=== PATIENT | female | born 1965 | race Caucasian/White ===

== ENCOUNTER 2017-09-20 12:07 | Emergency (ER) | payer BC ==
--- NOTE | 2017-09-20 12:25 | EDM.PDOC ---
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 Stated Complaint: VAG BLEEDING Time Seen by Provider: 09/20/17 12:21 - History of Present Illness INITIAL COMMENTS - FREE TEXT/NARRATIVE: HISTORY AND PHYSICAL: History of present illness: Patient is a 51-year-old female presents with concern of vaginal bleeding that' s been off and on for 4 years been heavier recently she has not sought medical care due to lack of insurance but is going to be in contact with EXECUTIVE RECRUITER tomorrow for follow-up there's been no dizziness chest pain service breath or other concern Review of systems: As per history of present illness and below otherwise all systems reviewed and negative. Past medical history: As per history of present illness and as reviewed below otherwise noncontributory. Surgical history: As per history of present illness and as reviewed below otherwise noncontributory. Social history: No reported history of drug or alcohol abuse. Family history: As per history of present illness and as reviewed below otherwise noncontributory. Physical exam: HEENT: Atraumatic, normocephalic, pupils reactive, negative for conjunctival pallor or scleral icterus, mucous membranes moist, throat clear, neck supple, nontender, trachea midline. Lungs: Clear to auscultation, breath sounds equal bilaterally, chest nontender. Heart: S1S2, regular, negative for clicks, rubs, or JVD. Abdomen: Soft, nondistended, nontender. Negative for masses or hepatosplenomegaly. Negative for costovertebral tenderness. Pelvis: Stable nontender. Genitourinary: Deferred. Rectal: Deferred. Extremities: Atraumatic, negative for cords or calf pain. Neurovascular unremarkable. Neuro: Awake, alert, oriented. Cranial nerves II through XII unremarkable. Cerebellum unremarkable. Motor and sensory unremarkable throughout. Exam nonfocal. Diagnostics: CBC PT/INR hCG Therapeutics: None Impression: #1 dysfunctional uterine bleeding Definitive disposition and diagnosis as appropriate pending reevaluation and review of above. pelvic cramping Pain Score (Numeric/FACES): 4 - Related Data Allergies Allergy/AdvReac Type Severity Reaction Status Date / Time No Known Allergies Allergy Verified 09/20/17 12:23 Home Meds: Home Meds . [No Known Home Meds] 09/20/17 [History] ED ROS GENERAL - Review of Systems Review Of Systems: ROS reveals no pertinent complaints other than HPI. ED EXAM, GENERAL - Physical Exam Exam: See Below (See dictation) Course - Vital Signs Last Recorded V/S: Last Vital Signs Temp 37.1 C 09/20/17 13:30 Pulse 89 09/20/17 13:30 Resp 20 09/20/17 13:30 BP 181/89 H 09/20/17 13:30 Pulse Ox 99 09/20/17 13:30 - Orders/Labs/Meds Labs: Laboratory Tests 09/20/17 09/20/17 09/20/17 Range/Units 12:36 12:36 12:36 WBC 5.47 (4.0-11.0) K/uL RBC 4.59 (4.30-5.90) M/uL Hgb 12.3 (12.0-16.0) g/dL Hct 38.9 (36.0-46.0) % MCV 84.7 (80.0-98.0) fL MCH 26.8 L (27.0-32.0) pg MCHC 31.6 (31.0-37.0) g/dL RDW Std Deviation 47.7 (28.0-62.0) fl RDW Coeff of Sandor 16 H (11.0-15.0) % Plt Count 248 (150-400) K/uL MPV 9.90 (7.40-12.00) fL Neut % (Auto) 64.9 (48.0-80.0) % Lymph % (Auto) 26.9 (16.0-40.0) % [place] % (Auto) 7.3 (0.0-15.0) % Eos % (Auto) 0.7 (0.0-7.0) % Baso % (Auto) 0.2 (0.0-1.5) % Neut # (Auto) 3.6 (1.4-5.7) K/uL Lymph # (Auto) 1.5 (0.6-2.4) K/uL [place] # (Auto) 0.4 (0.0-0.8) K/uL Eos # (Auto) 0.0 (0.0-0.7) K/uL Baso # (Auto) 0.0 (0.0-0.1) K/uL Nucleated RBC % 0.0 /100WBC Nucleated RBCs # 0 K/uL INR 1.04 HCG, Qual NEGATIVE (NEG) Departure - Departure Time of Disposition: 19:16 Disposition: Home, Self-Care 01 Condition: Good Clinical Impression: Dysfunctional uterine bleeding - Discharge Information Instructions: Abnormal Uterine Bleeding Referrals: Chava Roque MD [Physician] - PCP,None [Primary Care Provider] - Forms: ED Department Discharge
== END 2017-09-20 13:30 | disposition home or self-care (01) ==
LOC: MW.ED 12:07
DX: N93.8 Other specified abnormal uterine and vaginal bleeding (principal)
CPT/HCPCS: 36415; 84703; 85025; 85610; 99283

== ENCOUNTER 2020-09-11 17:21 | Emergency (ER) | payer BC ==
--- NOTE | 2020-09-11 18:03 | EDM.PDOC ---
ED HPI GENERAL MEDICAL PROBLEM - General Chief Complaint: Respiratory Problem Stated Complaint: SOB Time Seen by Provider: 09/11/20 17:25 Source of Information: Reports: Patient History Limitations: Reports: No Limitations - History of Present Illness INITIAL COMMENTS - FREE TEXT/NARRATIVE: Reporting "bronchitis" the patient states for the last for 5 days she has had a cough which makes her somewhat short of breath. The patient states she had the same symptoms 1 year ago and was diagnosed with a sinus infection and bronchitis. On this occasion she has no headache sinus fullness tenderness or drainage no postnasal drip. She does not smoke. She has a history of hypertension and she has not taken her medications for the last 3 days because of the cough. Not been tested for Covid and she really does not want to be but changed her mind and stated she would like a Covid test so that she can get back and see her primary care provider who will not see her until she has a Covid test. She has had no diarrhea, sore throat, loss of taste or smell, fever, body aches or headaches. Besides hypertension she has a history of morbid obesity. 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 - Infectious Disease History Infectious Disease History: Reports: None - Past Surgical History Female Surgical History: Reports: Section Musculoskeletal Surgical History: Reports: Other (See Below) Other Musculoskeletal Surgeries/Procedures:: knee and ankle sx Social & Family History - Family History Family Medical History: No Pertinent Family History - Tobacco Use Tobacco Use Status *Q: Never Tobacco User - Caffeine Use Caffeine Use: Reports: Tea - Recreational Drug Use Recreational Drug Use: No ED ROS GENERAL - Review of Systems Review Of Systems: Comprehensive ROS is negative, except as noted in HPI. ED EXAM, GENERAL - Physical Exam Exam: See Below Exam Limited By: No Limitations General Appearance: Alert, No Apparent Distress Ears: Normal External Exam, Normal TMs Nose: Normal Inspection Throat/Mouth: Normal Inspection, Normal Lips, Normal Oropharynx Head: Atraumatic, Normocephalic. No: Facial Tenderness, Sinus Tenderness Neck: Normal Inspection Respiratory/Chest: No Respiratory Distress, Lungs Clear, Normal Breath Sounds Cardiovascular: Regular Rate, Rhythm, No Murmur GI/Abdominal: Soft, Non-Tender, No Distention Back Exam: Normal Inspection Extremities: Normal Inspection. No: Pedal Edema Neurological: Alert, Oriented, Normal Cognition Psychiatric: Normal Affect, Normal Mood Skin Exam: Warm, Dry, Intact, Normal Color, No Rash Lymphatic: No Adenopathy Course - Vital Signs Last Recorded V/S: Last Vital Signs Temp 37.5 C 09/11/20 17:29 Pulse 97 09/11/20 17:29 Resp 22 H 09/11/20 17:29 BP 105/84 09/11/20 17:29 Pulse Ox 93 L 09/11/20 17:29 Departure - Departure Time of Disposition: 18:20 Disposition: Home, Self-Care 01 Condition: Good Clinical Impression: Bronchitis - Discharge Information Prescriptions: Codeine Phosphate/Guaifenesin [Guaifen-Codeine 100-10 mg/5 ml] 10 ml PO Q6HR PRN #240 liquid PRN Reason: Cough predniSONE [Prednisone] 2 tab PO DAILY #10 tablet Referrals: Alaina Murry DO [Primary Care Provider] - Additional Instructions: The following information is given to patients seen in the emergency department who are being discharged to home. This information is to outline your options for follow-up care. We provide all patients seen in our emergency department with a follow-up referral. The need for follow-up, as well as the timing and circumstances, are variable depending upon the specifics of your emergency department visit. If you don't have a primary care physician on staff, we will provide you with a referral. We always advise you to contact your personal physician following an emergency department visit to inform them of the circumstance of the visit and for follow-up with them and/or the need for any referrals to a consulting specialist. The emergency department will also refer you to a specialist when appropriate. This referral assures that you have the opportunity for follow-up care with a specialist. All of these measure are taken in an effort to provide you with optimal care, which includes your follow-up. Under all circumstances we always encourage you to contact your private physician who remains a resource for coordinating your care. When calling for follow-up care, please make the office aware that this follow-up is from your recent emergency room visit. If for any reason you are refused follow-up, please contact the [facility] Emergency Department at and asked to speak to the emergency department charge nurse. 1. Low up with your primary care provider as you have indicated. 2. Prednisone once daily starting today 3. Syrup every 4-6 hours as needed. No driving or operating machinery 4. Drink plenty of fluids Sepsis Event Note (ED) - Evaluation Sepsis Screening Result: No Definite Risk - Focused Exam Vital Signs: Vital Signs Temp Pulse Resp BP Pulse Ox 09/11/20 17:29 37.5 C 97 22 H 105/84 93 L
[2020-09-11 19:04] LABS: CORONAVIRUS COVID-19 NAA POSITIVE (NEGATIVE); INFLUENZA A NAA NEGATIVE (NEGATIVE); INFLUENZA B NAA NEGATIVE (NEGATIVE)
== END 2020-09-11 18:18 | disposition home or self-care (01) ==
LOC: MW.ED 17:21
DX: J40 Bronchitis, not specified as acute or chronic (principal); I10 Essential (primary) hypertension; Z79.899 Other long term (current) drug therapy
CPT/HCPCS: 0240U; 99284; 99282

== ENCOUNTER 2020-09-15 18:28 | Inpatient (IN) | payer BC ==
--- NOTE | 2020-09-15 18:42 | EDM.PDOC ---
ED HPI GENERAL MEDICAL PROBLEM - General Chief Complaint: General Stated Complaint: SICK Time Seen by Provider: 09/15/20 18:33 Source of Information: Reports: Patient History Limitations: Reports: No Limitations - History of Present Illness INITIAL COMMENTS - FREE TEXT/NARRATIVE: HISTORY AND PHYSICAL: History of present illness: Patient is a 54-year-old female who presents to the emergency room with complaints of shortness of breath frequency and dysuria. On 09/11/2020, patient was seen in the emergency room for shortness of breath. She was diagnosed with bronchitis and COVID-19. She was given a prescription for prednisone and prescription cough syrup. She states the following day she had increased urinary frequency and dysuria, she called her primary care provider who called her in a prescription for oral antibiotics (she is unsure of name/dose). She has taken this medication over the past 2 days and feels no improvement. She believes her shortness of breath is becoming worse and is here for evaluation. Patient denies any fever, chills, headache, change in vision, syncope or near syncope. Denies any chest pain, back pain or cough. Denies any abdominal pain, nausea, vomiting, diarrhea, or constipation. Has not noted any blood in urine or stool. She has decreased appetite and states she feels dehydrated as she has not been drinking well. Review of systems: As per history of present illness and below otherwise all systems reviewed and negative. Past medical history: As per history of present illness and as reviewed below otherwise noncontributory. Surgical history: As per history of present illness and as reviewed below otherwise noncontributory. Social history: See social history for further information Family history: As per history of present illness and as reviewed below otherwise noncontributory. Physical exam: General: Well developed and well nourished 54 year old female. Alert and orientated x 3. Nontoxic in appearance and in no acute distress. Vital signs are stable and have been reviewed by me. Nursing notes were reviewed. HEENT: Atraumatic, normocephalic, pupils equal and reactive bilaterally, negative for conjunctival pallor or scleral icterus, mucous membranes moist, neck supple, nontender, trachea midline. No drooling or trismus noted. No meningeal signs. No hot potato voice noted. Lungs: Diminished throughout to auscultation bilaterally. No wheezes, rales, or rhonchi. Chest nontender. Mildly labored work of breathing. Heart: S1S2, regular rate and rhythm without overt murmur, gallops, or rubs. No JVD. No peripheral edema Abdomen: Soft, obese, nontender. Normoactive bowel sounds. Negative for masses or costovertebral tenderness. Skin: Intact, warm, dry. No lesions or rashes noted. Hematologic: No petechiae or purpra. Mucosa appropriate color and normal nail bed color and refill. Extremities: Atraumatic, moves all extremities per self without difficulty or deficits, negative for cords or calf pain. Neurovascular unremarkable. Neuro: Awake, alert, oriented. Cranial nerves II through XII unremarkable. Cerebellum unremarkable. Motor and sensory unremarkable throughout. Exam nonfocal. Psychiatric: Mood and affect are appropriate. Normal thought process. Answering questions appropriately. Notes: *This patient was seen and evaluated during the 2019 SARS-CoV-2 novel coronavirus pandemic period. Community viral transmission is ongoing at time of this encounter and the emergency department is operating under pandemic response procedures. Patient's oxygen saturation was 82% on RA, 90% on 5L per N/C. Patient appears unwell, risk for sepsis (will do sepsis labs) she is agreeable to lab work and likely admission. Will continue to monitor. Chest x-ray shows rounded areas of consolidation right mid and lower lung. This may represent pneumonia, however an underlying process including neoplasm not excluded. Heart size and pulmonary vascularity appear within normal. Initially was planning to do a CTA of the chest to rule out PE and further evaluate the abnormal chest x-ray reading. Patient's GFR is 27, will talk to the hospitalist about treating prophylactically versus VQ scan. We discussed risks versus benefits of Remdesivir, patient is agreeable to IV therapy. Patient's CBC is within normal limits. Her BUN and creatinine are slightly elevated at 27/1.9, we do not have any prior comparison except for 2018 in which she was in normal limits. Negative troponin. BNP is 24. Patient's oxygen had to be bumped up to 8 L per nasal cannula to sat at 89 to 90% on room air. We did switch her over to high flow oxygen at 95% and her saturation sitting right at 90. The RT reports that when she moved around she did decrease down to 88%. She did tolerate this for 15 to 20 minutes but does not get above 89% at this time. We will switch her to BiPAP and continue to monitor closely. Patient states she has a history of claustrophobia and feels anxious placing the BiPAP on. 1 mg of Ativan was given for comfort purposes. Nursing staff is at the bedside one-on-one and we have continue to monitor closely. Dr Nickerson, hospitalist on-call was made aware of this patient. He is aware that the D-dimer machine is currently not running and these results will be delayed. Krishan is also aware that we were unable to do a CT of the chest to rule out PE due to her kidney function. Patient will be placed in ICU for further care and management. Diagnostics: CBC, CMP, Lactate, BC x 2, D.Dimer, Troponin, EKG, CXR Therapeutics: Oxygen therapy, Remdesivir, Decadron, Ativan, Tylenol Impression: Respiratory failure with hypoxia COVID pneumonia Renal insufficiency Plan: ICU admission for further care and management, inpatient. Definitive disposition and diagnosis as appropriate pending reevaluation and review of above. 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 ED EXAM, GENERAL - Physical Exam Exam: See Below (See dictation) Course - Vital Signs Last Recorded V/S: Last Vital Signs Temp 100.7 F H 09/15/20 18:39 Pulse 101 H 09/15/20 18:39 Resp 32 H 09/15/20 18:39 BP 186/71 H 09/15/20 18:39 Pulse Ox 90 L 09/15/20 18:50 - Orders/Labs/Meds Orders: Active Orders 24 hr Category Date Time Status Admission Status [Patient Status] [ADT] Stat ADT 09/15/20 20:22 Active Cardiac Monitoring [RC] . DIRECTED Care 09/15/20 20:22 Active EKG Documentation Completion [RC] STAT Care 09/15/20 18:48 Active Oxygen Therapy [RC] ASDIRECTED Care 09/15/20 18:48 Active PE Chest [Ang Chest] [CT] Stat Exams 09/15/20 19:49 Ordered CULTURE BLOOD [BC] Stat Lab 09/15/20 19:15 Received CULTURE BLOOD [BC] Stat Lab 09/15/20 19:23 Received DD [D-DIMER QUANTITATIVE] [COAG] Stat Lab 09/15/20 19:15 Received UA RFX YA AND CULT IF INDIC [URIN] Stat Lab 09/15/20 18:48 Ordered Sodium Chloride 0.9% [Normal Saline] 1,000 ml Med 09/15/20 20:09 Active IV STAT Blood Culture x2 Reflex Set [OM.PC] Stat Oth 09/15/20 18:48 Ordered Medication Orders Sodium Chloride (Normal Saline) 1,000 mls @ 125 mls/hr IV STAT ONE Stop: 09/16/20 04:08 Last Admin: 09/15/20 20:20 Dose: 125 mls/hr Documented by: [id number] Labs: Laboratory Tests 09/15/20 09/15/20 09/15/20 Range/Units 19:15 19:15 19:15 WBC 8.81 (4.0-11.0) K/uL RBC 4.48 (4.30-5.90) M/uL Hgb 12.5 (12.0-16.0) g/dL Hct 38.4 (36.0-46.0) % MCV 85.7 (80.0-98.0) fL MCH 27.9 (27.0-32.0) pg MCHC 32.6 (31.0-37.0) g/dL RDW Std Deviation 45.0 (28.0-62.0) fl RDW Coeff of Sandor 14 (11.0-15.0) % Plt Count 225 (150-400) K/uL MPV 10.10 (7.40-12.00) fL Neut % (Auto) 88.4 H (48.0-80.0) % Lymph % (Auto) 6.5 L (16.0-40.0) % [place] % (Auto) 5.0 (0.0-15.0) % Eos % (Auto) 0.0 (0.0-7.0) % Baso % (Auto) 0.1 (0.0-1.5) % Neut # (Auto) 7.8 H (1.4-5.7) K/uL Lymph # (Auto) 0.6 (0.6-2.4) K/uL [place] # (Auto) 0.4 (0.0-0.8) K/uL Eos # (Auto) 0.0 (0.0-0.7) K/uL Baso # (Auto) 0.0 (0.0-0.1) K/uL Nucleated RBC % 0.0 /100WBC Nucleated RBCs # 0 K/uL Lactate 1.2 (0.20-2.00) mmol/L Sodium 136 (136-145) mmol/L Potassium 4.0 (3.5-5.1) mmol/L Chloride 102 (98-107) mmol/L Carbon Dioxide 24.1 (21.0-32.0) mmol/L BUN 27 H (7.0-18.0) mg/dL Creatinine 1.9 H (0.6-1.0) mg/dL Est Cr Clr Drug Dosing 33.30 mL/min Estimated GFR (MDRD) 27.7 ml/min Glucose 150 H (74-106) mg/dL Calcium 9.1 (8.5-10.1) mg/dL Total Bilirubin 0.8 (0.2-1.0) mg/dL Direct Bilirubin (0.0-0.5) mg/dL AST 65 H (15-37) IU/L ALT 57 (14-63) IU/L Alkaline Phosphatase 58 (46-116) U/L Troponin I < 0.050 (0.000-0.056) ng/mL B-Natriuretic Peptide (<100) PG/ML Total Protein 7.5 (6.4-8.2) g/dL Albumin 2.8 L (3.4-5.0) g/dL Globulin 4.7 H (2.6-4.0) g/dL Albumin/Globulin Ratio 0.6 L (0.9-1.6) 09/15/20 09/15/20 Range/Units 19:15 19:15 WBC (4.0-11.0) K/uL RBC (4.30-5.90) M/uL Hgb (12.0-16.0) g/dL Hct (36.0-46.0) % MCV (80.0-98.0) fL MCH (27.0-32.0) pg MCHC (31.0-37.0) g/dL RDW Std Deviation (28.0-62.0) fl RDW Coeff of Sandor (11.0-15.0) % Plt Count (150-400) K/uL MPV (7.40-12.00) fL Neut % (Auto) (48.0-80.0) % Lymph % (Auto) (16.0-40.0) % [place] % (Auto) (0.0-15.0) % Eos % (Auto) (0.0-7.0) % Baso % (Auto) (0.0-1.5) % Neut # (Auto) (1.4-5.7) K/uL Lymph # (Auto) (0.6-2.4) K/uL [place] # (Auto) (0.0-0.8) K/uL Eos # (Auto) (0.0-0.7) K/uL Baso # (Auto) (0.0-0.1) K/uL Nucleated RBC % /100WBC Nucleated RBCs # K/uL Lactate (0.20-2.00) mmol/L Sodium (136-145) mmol/L Potassium (3.5-5.1) mmol/L Chloride (98-107) mmol/L Carbon Dioxide (21.0-32.0) mmol/L BUN (7.0-18.0) mg/dL Creatinine (0.6-1.0) mg/dL Est Cr Clr Drug Dosing mL/min Estimated GFR (MDRD) ml/min Glucose (74-106) mg/dL Calcium (8.5-10.1) mg/dL Total Bilirubin (0.2-1.0) mg/dL Direct Bilirubin 0.50 (0.0-0.5) mg/dL AST (15-37) IU/L ALT (14-63) IU/L Alkaline Phosphatase (46-116) U/L Troponin I (0.000-0.056) ng/mL B-Natriuretic Peptide 24 (<100) PG/ML Total Protein (6.4-8.2) g/dL Albumin (3.4-5.0) g/dL Globulin (2.6-4.0) g/dL Albumin/Globulin Ratio (0.9-1.6) Meds: Medications Generic Name Dose Route Start Last Admin Trade Name Freq PRN Reason Stop Dose Admin Sodium Chloride 1,000 mls @ 125 mls/hr 09/15/20 20:09 09/15/20 20:20 Normal Saline IV 09/16/20 04:08 125 mls/hr STAT ONE Administration Discontinued Medications Generic Name Dose Route Start Last Admin Trade Name Freq PRN Reason Stop Dose Admin Acetaminophen 1,000 mg 09/15/20 20:08 09/15/20 20:15 Tylenol Extra Strength PO 09/15/20 20:09 1,000 mg ONETIME ONE Administration Dexamethasone 6 mg 09/15/20 19:30 09/15/20 20:02 Decadron IVPUSH 09/15/20 19:31 6 mg ONETIME ONE Administration Remdesivir 200 mg/ Sodium 250 mls @ 250 mls/hr 09/15/20 19:29 09/15/20 20:03 Chloride IV 09/15/20 19:30 250 mls/hr ONETIME ONE Administration Lorazepam 1 mg 09/15/20 20:17 09/15/20 20:21 Ativan IVPUSH 09/15/20 20:18 1 mg ONETIME ONE Administration Lorazepam Confirm 09/15/20 20:18 09/15/20 20:21 Ativan Administered 09/15/20 20:19 Not Given Dose 2 mg .ROUTE .STK-MED ONE Departure - Departure Time of Disposition: 20:49 Disposition: Admitted As Inpatient 67 Clinical Impression: Pneumonia due to COVID-19 virus, Renal insufficiency Respiratory failure with hypoxia Qualifiers: Chronicity: acute Qualified Code(s): J96.01 - Acute respiratory failure with hypoxia - Discharge Information Critical Care Note - Critical Care Note Total Time (mins): 31 Comments: Critical care time is exclusive of billable procedures and the time to perform these procedures. Critical care time was used to prevent vital system organ failure and deterioration. Critical care time includes bedside management and high-complexity decision making requiring my highest level of mental preparedness and attention. This includes reviewing the patient's chart and prior medical records, ordering and reviewing interpreting laboratory studies and imaging results, interpretation of vital signs and EKG, pulse oximetry, and discussion with the admitting team along with EMS and nursing staff. Patient presented to the emergency room with an oxygen saturation of 82% on room air. We have had to titrate her oxygen to high flow nasal cannula then over to BiPAP due to her hypoxia. Vital signs have been monitored closely. Patient will be admitted to the ICU due to status. Sepsis Event Note (ED) - Focused Exam Vital Signs: Vital Signs Temp Pulse Resp BP Pulse Ox 09/15/20 18:50 90 L 09/15/20 18:39 100.7 F H 101 H 32 H 186/71 H 82 L - My Orders Last 24 Hours: My Active Orders 09/15/20 18:48 EKG Documentation Completion [RC] STAT Oxygen Therapy [RC] ASDIRECTED UA RFX YA AND CULT IF INDIC [URIN] Stat Blood Culture x2 Reflex Set [OM.PC] Stat 09/15/20 19:15 CULTURE BLOOD [BC] Stat DD [D-DIMER QUANTITATIVE] [COAG] Stat 09/15/20 19:23 CULTURE BLOOD [BC] Stat 09/15/20 19:49 PE Chest [Ang Chest] [CT] Stat 09/15/20 20:09 Sodium Chloride 0.9% [Normal Saline] 1,000 ml IV STAT 09/15/20 20:22 Admission Status [Patient Status] [ADT] Stat Cardiac Monitoring [RC] . DIRECTED - Assessment/Plan Last 24 Hours: My Active Orders 09/15/20 18:48 EKG Documentation Completion [RC] STAT Oxygen Therapy [RC] ASDIRECTED UA RFX YA AND CULT IF INDIC [URIN] Stat Blood Culture x2 Reflex Set [OM.PC] Stat 09/15/20 19:15 CULTURE BLOOD [BC] Stat DD [D-DIMER QUANTITATIVE] [COAG] Stat 09/15/20 19:23 CULTURE BLOOD [BC] Stat 09/15/20 19:49 PE Chest [Ang Chest] [CT] Stat 09/15/20 20:09 Sodium Chloride 0.9% [Normal Saline] 1,000 ml IV STAT 09/15/20 20:22 Admission Status [Patient Status] [ADT] Stat Cardiac Monitoring [RC] . DIRECTED
[2020-09-15] MEDS ORDERED: REMDESIVIR 200 MG in Sodium Chloride 0.9% 250 ML IV ONE (19:29)
[2020-09-15] MEDS ORDERED: Dexamethasone 10 MG/ML SDV IVPUSH ONE (19:30)
--- NOTE | 2020-09-15 19:31 | PCM.SN.2 ---
- Free Text/Narrative Note: EKG obtained on September 15 at 1919 interpreted by myself demonstrates sinus rhythm with a rate of 95 normal axis and intervals no ST elevations or depressions and no concern for acute ischemia
--- NOTE | 2020-09-15 19:43 | CR ---
HISTORY: Shortness of breath. COMPARISON: 09/24/2018. FINDINGS: Portable frontal views of the chest. Rounded areas of consolidation right mid and lower lung. This may represent pneumonia, however an underlying process including neoplasm not excluded. Clinical correlation and followup to resolution is recommended. CT chest could be performed for further evaluation. Heart size and pulmonary vascularity appear within normal. Dictated by Amna Stacy MD @ Sep 15 2020 7:39PM Signed by Dr. Amna Stacy @ Sep 15 2020 7:42PM
[2020-09-15 19:45] LABS: BLOOD UREA NITROGEN,BUN 27 mg/dL (7.0-18.0); CARBON DIOXIDE,CO2 24.1 mmol/L (21.0-32.0); CHLORIDE,CL 102 mmol/L (98-107); GLUCOSE RANDOM 150 mg/dL (74-106); SODIUM,NA 136 mmol/L (136-145)
[2020-09-15] MEDS ORDERED: Acetaminophen 500 MG Tab PO ONE (20:08)
[2020-09-15] MEDS ORDERED: Sodium Chloride 0.9% 1,000 ML IV ONE (20:09)
[2020-09-15] MEDS ORDERED: LORazepam 2 MG/ML SDV IVPUSH ONE (20:17)
[2020-09-15] MEDS ORDERED: LORazepam 2 MG/ML SDV ONE (20:18)
--- NOTE | 2020-09-15 21:33 | PN ---
KARSTEN Physician - Brief Progress [id number]/23/2021 21:14[facility] Cait [place], [place] - [place] ([place]) - [place] MAURICIOJOVITA Hewitt, Covid +Date of Service 09/15/2020 21:14HPI/E vents of Note eICU admission [id number] female presented to the hospital with acute hypoxic resp iratory failure secondary to COVID-19. Patient initially presented on 09/11/2020 for shortness of mila ath when she was diagnosed with COVID-19 and was sent home on prednisone and antitussives. She again presented to ED on 09/15/2020 with complaints of progressively worsening shortness of breath as well as polyuria/dysuria. On arrival to the ED patient was noted to be hypoxic on room air and eventually required BiPAP to maintain sats. Initial lab work-up revealed BRI 1.9 and negative UA with otherwis e labs within normal limits. Patient was initiated on Decadron and remdesivir along with IVFs and ad mitted to the ICU for closer monitoring.Patient seen on camera, currently on BiPAP, does not appear t o be in acute distress at this timeVital signs reviewedLab/EMR reviewedAcute hypoxic respiratory fail ure-Secondary to COVID-19 infection. -PPE and isolation per institution policy-Agree with Decadron an d Remdesivir to complete course. Can either consider baricitinib(if available) in combination with re mdesivir versus considering convalescent plasma if patient has worsening hypoxic respiratory failure. -Recommend self proning as tolerated-Recommend keeping patient euvolemic as much as possible.-Agree w ith BiPAP given worsening hypoxia. Patient currently on 03/27. If patient does have worsening hypoxia recommend going up on EPAP and we can assist further as needed in this regards.BRI-Likely prerenal i n etiology-Continue to trend creatinine, if continued uptrend or urine output decreases will need charlene al imaging at that time.-Avoid nephrotoxins and continue with strict I's and O's.Thank you for allowi ng us to participate in the care of this patient.Interventions Major-Acute renal failure - evaluation and management, Hypoxemia - evaluation and management, Infection - evaluation and management, Respir atory failure - evaluation and management
--- NOTE | 2020-09-15 22:10 | PCM.HP.2 ---
H&P History of Present Illness - General Date of Service: 09/15/20 Admit Problem/Dx: Admission Diagnosis/Problem Admission Diagnosis/Problem Respiratory failure with hypoxia - History of Present Illness Initial Comments - Free Text/Narative: 54 yo female who reports testing positive for COVID on Sep 11. Patient reports shortness of breath, cough, and not feeling well for five days before this. On the the patient was seen in the ED and discharged home with prednisone for bronchitis. PAtient also reports recent antibiotics for UTI. Patient presents to the ED again today for worsening shortness of breath and fever. Patient was satting mid 80s on RA and was placed on high flow then BIPAP to get O2 levels above 90%. Patient received Ativan for her anxiety and claustrophobia with wearing the mask. CXR reported consolidations in the right middle and lower lobes. bladder Pain Score (Numeric/FACES): 2 - Related Data Allergies/Adverse Reactions: Allergies Allergy/AdvReac Type Severity Reaction Status Date / Time No Known Allergies Allergy Verified 09/15/20 18:47 Home Medications: Home Meds Furosemide [Lasix] 1 tab PO DAILY 09/24/18 [History] Losartan Potassium 1 tab PO DAILY 09/24/18 [History] Codeine Phosphate/Guaifenesin [Guaifen-Codeine 100-10 mg/5 ml] 10 ml PO Q6HR PRN #240 liquid 09/11/20 [Rx] predniSONE [Prednisone] 2 tab PO DAILY #10 tablet 09/11/20 [Rx] Past Medical History HEENT History: Reports: Impaired Vision Cardiovascular History: Reports: Hypertension Respiratory History: Reports: Bronchitis, Recurrent Genitourinary History: Reports: UTI, Recurrent [employer] History: Reports: Dysfunctional Uterine Bleeding - Infectious Disease History Infectious Disease History: Reports: Novel Coronavirus - Past Surgical History Female Surgical History: Reports: Section Musculoskeletal Surgical History: Reports: Other (See Below) Other Musculoskeletal Surgeries/Procedures:: knee and ankle sx Social & Family History - Family History Family Medical History: No Pertinent Family History - Tobacco Use Tobacco Use Status *Q: Never Tobacco User Second Hand Smoke Exposure: No - Caffeine Use Caffeine Use: Reports: None - Recreational Drug Use Recreational Drug Use: No H&P Review of Systems - Review of Systems: Review Of Systems: Comprehensive ROS is negative, except as noted in HPI. Exam - Exam Exam: See Below - Vital Signs Vital Signs: Last Vital Signs Temp 37.7 C 09/15/20 21:15 Pulse 82 09/15/20 21:12 Resp 40 H 09/15/20 21:12 BP 139/69 09/15/20 21:12 Pulse Ox 97 09/15/20 21:12 Weight: 172.365 kg - Exam General: Alert, Oriented, Other (obese) HEENT: Mucosa Moist & [place] Neck: Supple Lungs: Clear to Auscultation, Normal Respiratory Effort Cardiovascular: Regular Rate, Regular Rhythm GI/Abdominal Exam: Normal Bowel Sounds, Soft, Non-Tender Extremities: Non-Tender, Pedal Edema (+1 edema) Skin: Warm, Dry, Intact Neurological: Cranial Nerves Intact, Reflexes Equal Bilateral, Normal Speech Neuro Extensive - Mental Status: Alert, Oriented x3, Normal Mood/Affect, Normal Cognition - Patient Data Lab Results Last 24 hrs: Laboratory Results - last 24 hr 09/15/20 09/15/20 09/15/20 Range/Units 19:15 19:15 19:15 WBC 8.81 (4.0-11.0) K/uL RBC 4.48 (4.30-5.90) M/uL Hgb 12.5 (12.0-16.0) g/dL Hct 38.4 (36.0-46.0) % MCV 85.7 (80.0-98.0) fL MCH 27.9 (27.0-32.0) pg MCHC 32.6 (31.0-37.0) g/dL RDW Std Deviation 45.0 (28.0-62.0) fl RDW Coeff of Sandor 14 (11.0-15.0) % Plt Count 225 (150-400) K/uL MPV 10.10 (7.40-12.00) fL Neut % (Auto) 88.4 H (48.0-80.0) % Lymph % (Auto) 6.5 L (16.0-40.0) % Wetzel % (Auto) 5.0 (0.0-15.0) % Eos % (Auto) 0.0 (0.0-7.0) % Baso % (Auto) 0.1 (0.0-1.5) % Neut # (Auto) 7.8 H (1.4-5.7) K/uL Lymph # (Auto) 0.6 (0.6-2.4) K/uL [place]zel # (Auto) 0.4 (0.0-0.8) K/uL Eos # (Auto) 0.0 (0.0-0.7) K/uL Baso # (Auto) 0.0 (0.0-0.1) K/uL Nucleated RBC % 0.0 /100WBC Nucleated RBCs # 0 K/uL Lactate 1.2 (0.20-2.00) mmol/L Sodium 136 (136-145) mmol/L Potassium 4.0 (3.5-5.1) mmol/L Chloride 102 (98-107) mmol/L Carbon Dioxide 24.1 (21.0-32.0) mmol/L BUN 27 H (7.0-18.0) mg/dL Creatinine 1.9 H (0.6-1.0) mg/dL Est Cr Clr Drug Dosing 33.30 mL/min Estimated GFR (MDRD) 27.7 ml/min Glucose 150 H (74-106) mg/dL Calcium 9.1 (8.5-10.1) mg/dL Total Bilirubin 0.8 (0.2-1.0) mg/dL Direct Bilirubin (0.0-0.5) mg/dL AST 65 H (15-37) IU/L ALT 57 (14-63) IU/L Alkaline Phosphatase 58 (46-116) U/L Troponin I < 0.050 (0.000-0.056) ng/mL B-Natriuretic Peptide (<100) PG/ML Total Protein 7.5 (6.4-8.2) g/dL Albumin 2.8 L (3.4-5.0) g/dL Globulin 4.7 H (2.6-4.0) g/dL Albumin/Globulin Ratio 0.6 L (0.9-1.6) Urine Color Urine Appearance Urine pH (5.0-8.0) Ur Specific [place] (1.001-1.035) Urine Protein (NEGATIVE) mg/dL Urine Glucose (UA) (NEGATIVE) mg/dL Urine Ketones (NEGATIVE) mg/dL Urine Occult Blood (NEGATIVE) Urine Nitrite (NEGATIVE) Urine Bilirubin (NEGATIVE) Urine Ictotest Urine Urobilinogen (<2.0) EU/dL Ur Leukocyte Esterase (NEGATIVE) Urine RBC (0-2/HPF) Urine WBC (0-5/HPF) Ur Epithelial Cells (NONE-FEW) Urine Bacteria (NEGATIVE) 09/15/20 09/15/20 09/15/20 Range/Units 19:15 19:15 21:10 WBC (4.0-11.0) K/uL RBC (4.30-5.90) M/uL Hgb (12.0-16.0) g/dL Hct (36.0-46.0) % MCV (80.0-98.0) fL MCH (27.0-32.0) pg MCHC (31.0-37.0) g/dL RDW Std Deviation (28.0-62.0) fl RDW Coeff of Sandor (11.0-15.0) % Plt Count (150-400) K/uL MPV (7.40-12.00) fL Neut % (Auto) (48.0-80.0) % Lymph % (Auto) (16.0-40.0) % Wet[place] % (Auto) (0.0-15.0) % Eos % (Auto) (0.0-7.0) % Baso % (Auto) (0.0-1.5) % Neut # (Auto) (1.4-5.7) K/uL Lymph # (Auto) (0.6-2.4) K/uL [place] # (Auto) (0.0-0.8) K/uL Eos # (Auto) (0.0-0.7) K/uL Baso # (Auto) (0.0-0.1) K/uL Nucleated RBC % /100WBC Nucleated RBCs # K/uL Lactate (0.20-2.00) mmol/L Sodium (136-145) mmol/L Potassium (3.5-5.1) mmol/L Chloride (98-107) mmol/L Carbon Dioxide (21.0-32.0) mmol/L BUN (7.0-18.0) mg/dL Creatinine (0.6-1.0) mg/dL Est Cr Clr Drug Dosing mL/min Estimated GFR (MDRD) ml/min Glucose (74-106) mg/dL Calcium (8.5-10.1) mg/dL Total Bilirubin (0.2-1.0) mg/dL Direct Bilirubin 0.50 (0.0-0.5) mg/dL AST (15-37) IU/L ALT (14-63) IU/L Alkaline Phosphatase (46-116) U/L Troponin I (0.000-0.056) ng/mL B-Natriuretic Peptide 24 (<100) PG/ML Total Protein (6.4-8.2) g/dL Albumin (3.4-5.0) g/dL Globulin (2.6-4.0) g/dL Albumin/Globulin Ratio (0.9-1.6) Urine Color DARK YELLOW Urine Appearance SLT CLOUDY Urine pH 5.5 (5.0-8.0) Ur Specific [place] 1.025 (1.001-1.035) Urine Protein 100 H (NEGATIVE) mg/dL Urine Glucose (UA) NEGATIVE (NEGATIVE) mg/dL Urine Ketones NEGATIVE (NEGATIVE) mg/dL Urine Occult Blood LARGE H (NEGATIVE) Urine Nitrite NEGATIVE (NEGATIVE) Urine Bilirubin SMALL H (NEGATIVE) Urine Ictotest NEGATIVE Urine Urobilinogen 2.0 H (<2.0) EU/dL Ur Leukocyte Esterase NEGATIVE (NEGATIVE) Urine RBC 1-3 (0-2/HPF) Urine WBC 0-1 (0-5/HPF) Ur Epithelial Cells MODERATE (NONE-FEW) Urine Bacteria FEW (NEGATIVE) Result Diagrams: 09/15/20 19:15 09/15/20 19:15 Sepsis Event Note - Evaluation Sepsis Screening Result: Possible Sepsis Risk - Focused Exam Vital Signs: Vital Signs Temp Pulse Resp BP Pulse Ox 09/15/20 21:15 37.7 C 09/15/20 21:12 82 40 H 139/69 97 09/15/20 20:13 91 40 H 133/79 87 L 09/15/20 19:58 84 50 H 128/72 91 L 09/15/20 18:50 90 L 09/15/20 18:39 38.2 C H 101 H 32 H 186/71 H 82 L Problem List Initiated/Reviewed/Updated: Yes Orders Last 24hrs: Active Orders 24 hr Category Date Time Status Admission Status [Patient Status] [ADT] Stat ADT 09/15/20 20:22 Active Cardiac Monitoring [RC] . DIRECTED Care 09/15/20 20:22 Active EKG Documentation Completion [RC] STAT Care 09/15/20 18:48 Active Oxygen Therapy [RC] ASDIRECTED Care 09/15/20 18:48 Active CULTURE BLOOD [BC] Stat Lab 09/15/20 19:15 Received CULTURE BLOOD [BC] Stat Lab 09/15/20 19:23 Received DD [D-DIMER QUANTITATIVE] [COAG] Stat Lab 09/15/20 19:15 Received Sodium Chloride 0.9% [Normal Saline] 1,000 ml Med 09/15/20 20:09 Active IV STAT Blood Culture x2 Reflex Set [OM.PC] Stat Oth 09/15/20 18:48 Ordered Medication Orders Sodium Chloride (Normal Saline) 1,000 mls @ 125 mls/hr IV STAT ONE Stop: 09/16/20 04:08 Last Admin: 09/15/20 20:20 Dose: 125 mls/hr Documented by: JOVANI Assessment/Plan Comment:: 54 yo female admitted for acute hypoxic respiratory failure from COVID pneumonia and acute kidney injury Acute hypoxic respiratory failure: Tolerating BIPAP well, will wean as tolerated COVID pneumonia: Treating with dexamethasone, remdesivir, Patient consented to convalescent plasma, Lovenox for DVT ppx. BRI: received a liter of fluid in ED, Will continue to monitor Low wells score, d-dimer is pending
[2020-09-15] MEDS ORDERED: cefTRIAXone 1 GM in Sodium Chloride 0.9% 50 ML IV SCH (22:45)
[2020-09-15] MEDS ORDERED: Enoxaparin 40 MG/0.4 ML Syringe SUBCUT SCH (22:46)
[2020-09-15] MEDS ORDERED: LORazepam 1 MG Tab PO PRN (22:49)
[2020-09-15] MEDS: Azithromycin 500 MG in Sodium Chloride 0.9% 250 ML IV SCH (23:16)
[2020-09-16] MEDS: Codeine/guaiFENesin 10-100 MG/5 ML Syrup 5 ML Cup PO PRN ×3 (03:57→20:52)
[2020-09-16] MEDS ORDERED: Heparin Sodium 5,000 Units/ML Vial IVPUSH ONE ×3 (05:00→17:45)
--- NOTE | 2020-09-16 05:48 | PN ---
THC Physician - Brief Progress [id number]/24/2021 05:32[facility] Cait [place], [place] - [place] ([place]) - JOVITA MEJIA Covid +Date of Service 09/16/2020 05:32HPI/E vents of Note Overnight events:1. Patient did not tolerate BIPAP.D/C'd Ativan due to risk of adverse effects. If she will require BIPAP eventually, recommend Precedex drip to help her be compliant.Loree singh, recommend proning for 12-16 hours/day for optimal oxygenation.2. c/o cough - Ordered Robitussin AC, which she is taking at home.3. Elevated D-dimer 1.26 (nromal <0.5). Patient at VTE risk due to C OVID. Ordered V/Q scan as Cre is 1.9.Meanwhile ordered empiric anticoagulation with Heparin gtt (give n her weight and BRI, Lovenox full anticoagulation would not be ideal).Interventions Intermediate-Coa gulopathy - evaluation and management, Other: respiratory failure; elevated D-dimerElectronically Sig elio by: TOMASZ JAMES) on 09/16/2020 05:48
[2020-09-16] MEDS: Heparin Sodium/0.45% NaCl 500 ML IV SCH ×2 (06:33→22:04)
[2020-09-16 06:34] LABS: CARBON DIOXIDE,CO2 26.3 mmol/L (21.0-32.0); POTASSIUM,K 4.3 mmol/L (3.5-5.1)
--- NOTE | 2020-09-16 14:28 | PCM.PN ---
- General Info Date of Service: 09/16/20 - Review of Systems Systems Review Comment:: feeling better, short of breath with sitting, reports cough - Patient Data Vitals - Most Recent: Last Vital Signs Temp 35.8 C L 09/16/20 08:00 Pulse 82 09/15/20 21:12 Resp 28 H 09/16/20 11:00 BP 133/76 09/16/20 11:00 Pulse Ox 97 09/16/20 11:00 Weight - Most Recent: 182.752 kg I&O - Last 24 Hours: Intake & Output 09/15/20 09/16/20 09/16/20 22:59 06:59 14:59 Intake Total 1599 Output Total 300 Balance 1299 Lab Results Last 24 Hours: Laboratory Results - last 24 hr 09/15/20 09/15/20 09/15/20 Range/Units 19:15 19:15 19:15 WBC 8.81 (4.0-11.0) K/uL RBC 4.48 (4.30-5.90) M/uL Hgb 12.5 (12.0-16.0) g/dL Hct 38.4 (36.0-46.0) % MCV 85.7 (80.0-98.0) fL MCH 27.9 (27.0-32.0) pg MCHC 32.6 (31.0-37.0) g/dL RDW Std Deviation 45.0 (28.0-62.0) fl RDW Coeff of Sandor 14 (11.0-15.0) % Plt Count 225 (150-400) K/uL MPV 10.10 (7.40-12.00) fL Neut % (Auto) 88.4 H (48.0-80.0) % Lymph % (Auto) 6.5 L (16.0-40.0) % [place] % (Auto) 5.0 (0.0-15.0) % Eos % (Auto) 0.0 (0.0-7.0) % Baso % (Auto) 0.1 (0.0-1.5) % Neut # (Auto) 7.8 H (1.4-5.7) K/uL Lymph # (Auto) 0.6 (0.6-2.4) K/uL [place] # (Auto) 0.4 (0.0-0.8) K/uL Eos # (Auto) 0.0 (0.0-0.7) K/uL Baso # (Auto) 0.0 (0.0-0.1) K/uL Nucleated RBC % 0.0 /100WBC Nucleated RBCs # 0 K/uL APTT (18.6-31.3) SEC D-Dimer, Quantitative (0.0-0.50) mg/L FEU Lactate 1.2 (0.20-2.00) mmol/L Sodium 136 (136-145) mmol/L Potassium 4.0 (3.5-5.1) mmol/L Chloride 102 (98-107) mmol/L Carbon Dioxide 24.1 (21.0-32.0) mmol/L BUN 27 H (7.0-18.0) mg/dL Creatinine 1.9 H (0.6-1.0) mg/dL Est Cr Clr Drug Dosing 33.30 mL/min Estimated GFR (MDRD) 27.7 ml/min Glucose 150 H (74-106) mg/dL POC Glucose (60-110) mg/dL Calcium 9.1 (8.5-10.1) mg/dL Total Bilirubin 0.8 (0.2-1.0) mg/dL Direct Bilirubin (0.0-0.5) mg/dL AST 65 H (15-37) IU/L ALT 57 (14-63) IU/L Alkaline Phosphatase 58 (46-116) U/L Troponin I < 0.050 (0.000-0.056) ng/mL B-Natriuretic Peptide (<100) PG/ML Total Protein 7.5 (6.4-8.2) g/dL Albumin 2.8 L (3.4-5.0) g/dL Globulin 4.7 H (2.6-4.0) g/dL Albumin/Globulin Ratio 0.6 L (0.9-1.6) Urine Color Urine Appearance Urine pH (5.0-8.0) Ur Specific [place] (1.001-1.035) Urine Protein (NEGATIVE) mg/dL Urine Glucose (UA) (NEGATIVE) mg/dL Urine Ketones (NEGATIVE) mg/dL Urine Occult Blood (NEGATIVE) Urine Nitrite (NEGATIVE) Urine Bilirubin (NEGATIVE) Urine Ictotest Urine Urobilinogen (<2.0) EU/dL Ur Leukocyte Esterase (NEGATIVE) Urine RBC (0-2/HPF) Urine WBC (0-5/HPF) Ur Epithelial Cells (NONE-FEW) Urine Bacteria (NEGATIVE) Blood Type 09/15/20 09/15/20 09/15/20 Range/Units 19:15 19:15 21:10 WBC (4.0-11.0) K/uL RBC (4.30-5.90) M/uL Hgb (12.0-16.0) g/dL Hct (36.0-46.0) % MCV (80.0-98.0) fL MCH (27.0-32.0) pg MCHC (31.0-37.0) g/dL RDW Std Deviation (28.0-62.0) fl RDW Coeff of Sandor (11.0-15.0) % Plt Count (150-400) K/uL MPV (7.40-12.00) fL Neut % (Auto) (48.0-80.0) % Lymph % (Auto) (16.0-40.0) % [place] % (Auto) (0.0-15.0) % Eos % (Auto) (0.0-7.0) % Baso % (Auto) (0.0-1.5) % Neut # (Auto) (1.4-5.7) K/uL Lymph # (Auto) (0.6-2.4) K/uL [place] # (Auto) (0.0-0.8) K/uL Eos # (Auto) (0.0-0.7) K/uL Baso # (Auto) (0.0-0.1) K/uL Nucleated RBC % /100WBC Nucleated RBCs # K/uL APTT (18.6-31.3) SEC D-Dimer, Quantitative (0.0-0.50) mg/L FEU Lactate (0.20-2.00) mmol/L Sodium (136-145) mmol/L Potassium (3.5-5.1) mmol/L Chloride (98-107) mmol/L Carbon Dioxide (21.0-32.0) mmol/L BUN (7.0-18.0) mg/dL Creatinine (0.6-1.0) mg/dL Est Cr Clr Drug Dosing mL/min Estimated GFR (MDRD) ml/min Glucose (74-106) mg/dL POC Glucose (60-110) mg/dL Calcium (8.5-10.1) mg/dL Total Bilirubin (0.2-1.0) mg/dL Direct Bilirubin 0.50 (0.0-0.5) mg/dL AST (15-37) IU/L ALT (14-63) IU/L Alkaline Phosphatase (46-116) U/L Troponin I (0.000-0.056) ng/mL B-Natriuretic Peptide 24 (<100) PG/ML Total Protein (6.4-8.2) g/dL Albumin (3.4-5.0) g/dL Globulin (2.6-4.0) g/dL Albumin/Globulin Ratio (0.9-1.6) Urine Color DARK YELLOW Urine Appearance SLT CLOUDY Urine pH 5.5 (5.0-8.0) Ur Specific [place] 1.025 (1.001-1.035) Urine Protein 100 H (NEGATIVE) mg/dL Urine Glucose (UA) NEGATIVE (NEGATIVE) mg/dL Urine Ketones NEGATIVE (NEGATIVE) mg/dL Urine Occult Blood LARGE H (NEGATIVE) Urine Nitrite NEGATIVE (NEGATIVE) Urine Bilirubin SMALL H (NEGATIVE) Urine Ictotest NEGATIVE Urine Urobilinogen 2.0 H (<2.0) EU/dL Ur Leukocyte Esterase NEGATIVE (NEGATIVE) Urine RBC 1-3 (0-2/HPF) Urine WBC 0-1 (0-5/HPF) Ur Epithelial Cells MODERATE (NONE-FEW) Urine Bacteria FEW (NEGATIVE) Blood Type 09/15/20 09/15/20 09/16/20 Range/Units 23:04 23:04 05:30 WBC 6.06 (4.0-11.0) K/uL RBC 4.31 (4.30-5.90) M/uL Hgb 11.8 L (12.0-16.0) g/dL Hct 37.4 (36.0-46.0) % MCV 86.8 (80.0-98.0) fL MCH 27.4 (27.0-32.0) pg MCHC 31.6 (31.0-37.0) g/dL RDW Std Deviation 46.2 (28.0-62.0) fl RDW Coeff of Sandor 14 (11.0-15.0) % Plt Count 234 (150-400) K/uL MPV 10.20 (7.40-12.00) fL Neut % (Auto) 82.9 H (48.0-80.0) % Lymph % (Auto) 11.1 L (16.0-40.0) % [place] % (Auto) 5.8 (0.0-15.0) % Eos % (Auto) 0.0 (0.0-7.0) % Baso % (Auto) 0.2 (0.0-1.5) % Neut # (Auto) 5.0 (1.4-5.7) K/uL Lymph # (Auto) 0.7 (0.6-2.4) K/uL [place] # (Auto) 0.4 (0.0-0.8) K/uL Eos # (Auto) 0.0 (0.0-0.7) K/uL Baso # (Auto) 0.0 (0.0-0.1) K/uL Nucleated RBC % 0.0 /100WBC Nucleated RBCs # 0 K/uL APTT (18.6-31.3) SEC D-Dimer, Quantitative 1.26 H (0.0-0.50) mg/L FEU Lactate (0.20-2.00) mmol/L Sodium (136-145) mmol/L Potassium (3.5-5.1) mmol/L Chloride (98-107) mmol/L Carbon Dioxide (21.0-32.0) mmol/L BUN (7.0-18.0) mg/dL Creatinine (0.6-1.0) mg/dL Est Cr Clr Drug Dosing mL/min Estimated GFR (MDRD) ml/min Glucose (74-106) mg/dL POC Glucose (60-110) mg/dL Calcium (8.5-10.1) mg/dL Total Bilirubin (0.2-1.0) mg/dL Direct Bilirubin (0.0-0.5) mg/dL AST (15-37) IU/L ALT (14-63) IU/L Alkaline Phosphatase (46-116) U/L Troponin I (0.000-0.056) ng/mL B-Natriuretic Peptide (<100) PG/ML Total Protein (6.4-8.2) g/dL Albumin (3.4-5.0) g/dL Globulin (2.6-4.0) g/dL Albumin/Globulin Ratio (0.9-1.6) Urine Color Urine Appearance Urine pH (5.0-8.0) Ur Specific [place] (1.001-1.035) Urine Protein (NEGATIVE) mg/dL Urine Glucose (UA) (NEGATIVE) mg/dL Urine Ketones (NEGATIVE) mg/dL Urine Occult Blood (NEGATIVE) Urine Nitrite (NEGATIVE) Urine Bilirubin (NEGATIVE) Urine Ictotest Urine Urobilinogen (<2.0) EU/dL Ur Leukocyte Esterase (NEGATIVE) Urine RBC (0-2/HPF) Urine WBC (0-5/HPF) Ur Epithelial Cells (NONE-FEW) Urine Bacteria (NEGATIVE) Blood Type O POSITIVE 09/16/20 09/16/20 09/16/20 Range/Units 05:30 05:30 08:16 WBC (4.0-11.0) K/uL RBC (4.30-5.90) M/uL Hgb (12.0-16.0) g/dL Hct (36.0-46.0) % MCV (80.0-98.0) fL MCH (27.0-32.0) pg MCHC (31.0-37.0) g/dL RDW Std Deviation (28.0-62.0) fl RDW Coeff of Sandor (11.0-15.0) % Plt Count (150-400) K/uL MPV (7.40-12.00) fL Neut % (Auto) (48.0-80.0) % Lymph % (Auto) (16.0-40.0) % [place] % (Auto) (0.0-15.0) % Eos % (Auto) (0.0-7.0) % Baso % (Auto) (0.0-1.5) % Neut # (Auto) (1.4-5.7) K/uL Lymph # (Auto) (0.6-2.4) K/uL [place] # (Auto) (0.0-0.8) K/uL Eos # (Auto) (0.0-0.7) K/uL Baso # (Auto) (0.0-0.1) K/uL Nucleated RBC % /100WBC Nucleated RBCs # K/uL APTT 28.5 (18.6-31.3) SEC D-Dimer, Quantitative (0.0-0.50) mg/L FEU Lactate (0.20-2.00) mmol/L Sodium 140 (136-145) mmol/L Potassium 4.3 (3.5-5.1) mmol/L Chloride 105 (98-107) mmol/L Carbon Dioxide 26.3 (21.0-32.0) mmol/L BUN 32 H (7.0-18.0) mg/dL Creatinine 1.9 H (0.6-1.0) mg/dL Est Cr Clr Drug Dosing 33.30 mL/min Estimated GFR (MDRD) 27.7 ml/min Glucose 160 H (74-106) mg/dL POC Glucose 146 H (60-110) mg/dL Calcium 8.6 (8.5-10.1) mg/dL Total Bilirubin 0.6 (0.2-1.0) mg/dL Direct Bilirubin (0.0-0.5) mg/dL AST 57 H (15-37) IU/L ALT 53 (14-63) IU/L Alkaline Phosphatase 60 (46-116) U/L Troponin I (0.000-0.056) ng/mL B-Natriuretic Peptide (<100) PG/ML Total Protein 7.2 (6.4-8.2) g/dL Albumin 2.6 L (3.4-5.0) g/dL Globulin 4.6 H (2.6-4.0) g/dL Albumin/Globulin Ratio 0.6 L (0.9-1.6) Urine Color Urine Appearance Urine pH (5.0-8.0) Ur Specific [place] (1.001-1.035) Urine Protein (NEGATIVE) mg/dL Urine Glucose (UA) (NEGATIVE) mg/dL Urine Ketones (NEGATIVE) mg/dL Urine Occult Blood (NEGATIVE) Urine Nitrite (NEGATIVE) Urine Bilirubin (NEGATIVE) Urine Ictotest Urine Urobilinogen (<2.0) EU/dL Ur Leukocyte Esterase (NEGATIVE) Urine RBC (0-2/HPF) Urine WBC (0-5/HPF) Ur Epithelial Cells (NONE-FEW) Urine Bacteria (NEGATIVE) Blood Type 09/16/20 09/16/20 Range/Units 11:06 11:08 WBC (4.0-11.0) K/uL RBC (4.30-5.90) M/uL Hgb (12.0-16.0) g/dL Hct (36.0-46.0) % MCV (80.0-98.0) fL MCH (27.0-32.0) pg MCHC (31.0-37.0) g/dL RDW Std Deviation (28.0-62.0) fl RDW Coeff of Sandor (11.0-15.0) % Plt Count (150-400) K/uL MPV (7.40-12.00) fL Neut % (Auto) (48.0-80.0) % Lymph % (Auto) (16.0-40.0) % [place] % (Auto) (0.0-15.0) % Eos % (Auto) (0.0-7.0) % Baso % (Auto) (0.0-1.5) % Neut # (Auto) (1.4-5.7) K/uL Lymph # (Auto) (0.6-2.4) K/uL [place] # (Auto) (0.0-0.8) K/uL Eos # (Auto) (0.0-0.7) K/uL Baso # (Auto) (0.0-0.1) K/uL Nucleated RBC % /100WBC Nucleated RBCs # K/uL APTT 43.5 H (18.6-31.3) SEC D-Dimer, Quantitative (0.0-0.50) mg/L FEU Lactate (0.20-2.00) mmol/L Sodium (136-145) mmol/L Potassium (3.5-5.1) mmol/L Chloride (98-107) mmol/L Carbon Dioxide (21.0-32.0) mmol/L BUN (7.0-18.0) mg/dL Creatinine (0.6-1.0) mg/dL Est Cr Clr Drug Dosing mL/min Estimated GFR (MDRD) ml/min Glucose (74-106) mg/dL POC Glucose 145 H (60-110) mg/dL Calcium (8.5-10.1) mg/dL Total Bilirubin (0.2-1.0) mg/dL Direct Bilirubin (0.0-0.5) mg/dL AST (15-37) IU/L ALT (14-63) IU/L Alkaline Phosphatase (46-116) U/L Troponin I (0.000-0.056) ng/mL B-Natriuretic Peptide (<100) PG/ML Total Protein (6.4-8.2) g/dL Albumin (3.4-5.0) g/dL Globulin (2.6-4.0) g/dL Albumin/Globulin Ratio (0.9-1.6) Urine Color Urine Appearance Urine pH (5.0-8.0) Ur Specific [place] (1.001-1.035) Urine Protein (NEGATIVE) mg/dL Urine Glucose (UA) (NEGATIVE) mg/dL Urine Ketones (NEGATIVE) mg/dL Urine Occult Blood (NEGATIVE) Urine Nitrite (NEGATIVE) Urine Bilirubin (NEGATIVE) Urine Ictotest Urine Urobilinogen (<2.0) EU/dL Ur Leukocyte Esterase (NEGATIVE) Urine RBC (0-2/HPF) Urine WBC (0-5/HPF) Ur Epithelial Cells (NONE-FEW) Urine Bacteria (NEGATIVE) Blood Type Med Orders - Current: Current Medications Acetaminophen (Tylenol) 650 mg PO Q4H PRN PRN Reason: Pain (Mild 1-3)/fever Dexamethasone (Dexamethasone) 6 mg PO Q24H [facility] Guaifenesin/Codeine Phosphate (Robitussin Ac) 10 ml PO Q6H PRN PRN Reason: Cough Last Admin: 09/16/20 12:53 Dose: 10 ml Documented by: Remdesivir 100 mg/ Sodium (Chloride) 100 mls @ 100 mls/hr IV Q24H [facility] Stop: 09/19/20 20:59 Azithromycin 500 mg/ Sodium (Chloride) 250 mls @ 250 mls/hr IV Q24H [facility] Last Admin: 09/15/20 23:16 Dose: 250 mls/hr Documented by: Ceftriaxone Sodium/Dextrose (Rocephin In Dextrose,Iso-Osm 1 Gm/50 Ml) 50 mls @ 100 mls/hr IV Q24H [facility] Last Admin: 09/15/20 23:16 Dose: 100 mls/hr Documented by: Heparin Sodium/Sodium Chloride (Heparin 25,000 Units In 1/2 Ns 500 Ml) 500 mls @ 25.951 mls/hr IV TITRATE HELEN; Protocol Last Titration: 09/16/20 11:56 Dose: 9.1 units/kg/hr, 33.261 mls/hr Documented by: Discontinued Medications Acetaminophen (Tylenol Extra Strength) 1,000 mg PO ONETIME ONE Stop: 09/15/20 20:09 Last Admin: 09/15/20 20:15 Dose: 1,000 mg Documented by: Dexamethasone (Decadron) 6 mg IVPUSH ONETIME ONE Stop: 09/15/20 19:31 Last Admin: 09/15/20 20:02 Dose: 6 mg Documented by: Enoxaparin Sodium (Lovenox) 40 mg SUBCUT Q12HR HELEN Last Admin: 09/15/20 23:17 Dose: 40 mg Documented by: Heparin Sodium (Porcine) (Heparin Sodium) 7,500 units IVPUSH .BOLUS ONE Stop: 09/16/20 05:01 Last Admin: 09/16/20 06:31 Dose: 7,500 units Documented by: Heparin Sodium (Porcine) (Heparin Sodium) 1,500 units IVPUSH .BOLUS ONE Stop: 09/16/20 11:44 Last Admin: 09/16/20 11:52 Dose: 1,500 units Documented by: Remdesivir 200 mg/ Sodium (Chloride) 250 mls @ 250 mls/hr IV ONETIME ONE Stop: 09/15/20 19:30 Last Admin: 09/15/20 20:03 Dose: 250 mls/hr Documented by: Sodium Chloride (Normal Saline) 1,000 mls @ 125 mls/hr IV STAT ONE Stop: 09/16/20 04:08 Last Admin: 09/15/20 20:20 Dose: 125 mls/hr Documented by: Lorazepam (Ativan) 1 mg IVPUSH ONETIME ONE Stop: 09/15/20 20:18 Last Admin: 09/15/20 20:21 Dose: 1 mg Documented by: Lorazepam (Ativan) Confirm Administered Dose 2 mg .ROUTE .STK-MED ONE Stop: 09/15/20 20:19 Last Admin: 09/15/20 20:21 Dose: Not Given Documented by: Lorazepam (Ativan) 1 mg PO Q6H PRN PRN Reason: Anxiety - Exam General: Alert, Oriented Lungs: Decreased Breath Sounds, Rhonchi GI/Abdominal Exam: Soft, Non-Tender, No Distention Extremities: Pedal Edema Skin: Warm, Dry, Intact Neurological: No New Focal Deficit Sepsis Event Note - Evaluation Sepsis Screening Result: No Definite Risk - Focused Exam Vital Signs: Vital Signs Temp Resp BP Pulse Ox 09/16/20 11:00 28 H 133/76 97 09/16/20 10:00 18 122/74 87 L 09/16/20 09:00 14 118/79 85 L 09/16/20 08:30 36 H 90 L 09/16/20 08:00 35.8 C L 32 H 127/68 92 L 09/16/20 07:00 36 H 124/77 91 L 09/16/20 06:00 36 H 154/92 H 92 L 09/16/20 05:00 31 H 149/92 H 94 L 09/16/20 04:00 35.9 C L 32 H 155/91 H 93 L 09/16/20 03:00 36 H 90 L - Problem List Review Problem List Initiated/Reviewed/Updated: Yes - My Orders Last 24 Hours: My Active Orders 09/15/20 22:39 Transfuse Fresh Frozen Plasma [COMM] Routine 09/15/20 22:45 Azithromycin [Zithromax] 500 mg Sodium Chloride 0.9% [Normal Saline (AdvBag)] 250 ml IV Q24H [id number] [Rocephin in Dextrose,Iso-Osm 1 GM/50 ML] 50 ml IV Q24H 09/15/20 23:01 Blood Glucose Check, Bedside [RC] TIDMEALS Oxygen Therapy [RC] PRN Up ad Shalonda [RC] ASDIRECTED VTE/DVT Education [RC] PER UNIT ROUTINE Vital Signs [RC] Q1H Acetaminophen [TylenoL] 650 mg PO Q4H PRN Sequential Compression Device [OM.PC] Per Unit Routine Resuscitation Status Routine 09/15/20 23:02 Antiembolic Devices [RC] PER UNIT ROUTINE 09/15/20 23:04 ABO/RH TYPE [BBK] Routine FRESH FROZEN PLASMA [BBK] Routine 09/16/20 14:23 Venous Doppler Lwr Ext Bi [US] Routine 09/16/20 20:00 Remdesivir 100 mg Sodium Chloride 0.9% [Normal Saline] 100 ml IV Q24H 09/16/20 22:00 dexAMETHasone 6 mg PO Q24H 09/17/20 05:11 CBC WITH AUTO DIFF [HEME] AM COMPREHENSIVE METABOLIC PN,CMP [CHEM] AM - Plan Plan:: 54 yo female admitted for acute hypoxic respiratory failure from COVID pneumonia and acute kidney injury Acute hypoxic respiratory failure: on heated high flow 50% FIO2 COVID pneumonia: Treating with dexamethasone, remdesivir, Patient consented to convalescent plasma received one unit last night BRI: creatinine 1.9 today elevated d-dimer: on heparin drip, V/Q scan ordered, will order Doppler of legs
[2020-09-16] MEDS: Albuterol/Ipratropium 4 GM Inhalation Spray INH PRN (16:47)
[2020-09-16] MEDS: REMDESIVIR 100 MG in Sodium Chloride 0.9% 100 ML IV SCH (20:17)
[2020-09-16] MEDS: Dexamethasone 4 MG Tab PO SCH (22:03)
[2020-09-16] MEDS: Azithromycin 500 MG in Sodium Chloride 0.9% 250 ML IV SCH (22:03)
[2020-09-16] MEDS: Acetaminophen 325 MG Tab PO PRN (22:19)
[2020-09-17] MEDS ORDERED: Heparin Sodium 5,000 Units/ML Vial IVPUSH ONE
[2020-09-17] MEDS: Albuterol/Ipratropium 4 GM Inhalation Spray INH PRN ×2 (00:29→12:03)
[2020-09-17] MEDS: Codeine/guaiFENesin 10-100 MG/5 ML Syrup 5 ML Cup PO PRN ×4 (03:27→23:34)
[2020-09-17 06:46] LABS: CARBON DIOXIDE,CO2 24.5 mmol/L (21.0-32.0); POTASSIUM,K 4.6 mmol/L (3.5-5.1)
--- NOTE | 2020-09-17 08:43 | US ---
INDICATION: Shortness of breath; COVID-19 Positive; elevated D-dimer;: Rule out DVT TECHNIQUE: A compression venous ultrasound exam was performed of both lower extremities using harkins scale imaging, color Doppler and spectral Doppler analysis. FINDINGS: Sonographic imaging of the lower extremities demonstrates normal compressibility and color Doppler venous blood flow within the common femoral, deep femoral, and proximal greater saphenous veins. Within the thighs the femoral veins are patent and compressible. At a lower level the popliteal and posterior tibial veins also show normal compressibility and color Doppler venous blood flow. A 4.2 x 1.4 x 3.7 centimeter popliteal cyst left popliteal fossa IMPRESSION: Normal venous ultrasound exam. No evidence of deep vein thrombosis within either the left or right lower extremity. Left popliteal cyst Dictated by Zeb Ramirez MD @ Sep 17 2020 8:38AM Signed by Dr. Zeb Ramirez @ Sep 17 2020 8:40AM
[2020-09-17] MEDS: Heparin Sodium/0.45% NaCl 500 ML IV SCH ×2 (10:14→20:20)
--- NOTE | 2020-09-17 11:30 | PCM.PN ---
- General Info Date of Service: 09/17/20 Subjective Update: Mentions feeling better today compared to admission. Coughing fits at times. +CONWAY. - Review of Systems General: Reports: Malaise HEENT: Reports: No Symptoms Pulmonary: Reports: Shortness of Breath, Cough Cardiovascular: Denies: Chest Pain, Palpitations, Edema Gastrointestinal: Denies: Abdominal Pain, Nausea Genitourinary: Denies: Dysuria, Frequency Musculoskeletal: Reports: No Symptoms Neurological: Reports: Headache - Patient Data Vitals - Most Recent: Last Vital Signs Temp 97.9 F 09/17/20 08:00 Pulse 82 09/15/20 21:12 Resp 18 09/17/20 10:00 BP 133/75 09/17/20 10:00 Pulse Ox 92 L 09/17/20 10:00 Weight - Most Recent: 181.845 kg I&O - Last 24 Hours: Intake & Output 09/16/20 09/17/20 09/17/20 22:59 06:59 14:59 Intake Total 1100 2426 Output Total 400 Balance 700 2426 Lab Results Last 24 Hours: Laboratory Results - last 24 hr 09/16/20 09/16/20 09/16/20 Range/Units 11:08 17:08 17:08 WBC (4.0-11.0) K/uL RBC (4.30-5.90) M/uL Hgb (12.0-16.0) g/dL Hct (36.0-46.0) % MCV (80.0-98.0) fL MCH (27.0-32.0) pg MCHC (31.0-37.0) g/dL RDW Std Deviation (28.0-62.0) fl RDW Coeff of Sandor (11.0-15.0) % Plt Count (150-400) K/uL MPV (7.40-12.00) fL Neut % (Auto) (48.0-80.0) % Lymph % (Auto) (16.0-40.0) % [place] % (Auto) (0.0-15.0) % Eos % (Auto) (0.0-7.0) % Baso % (Auto) (0.0-1.5) % Neut # (Auto) (1.4-5.7) K/uL Lymph # (Auto) (0.6-2.4) K/uL [place] # (Auto) (0.0-0.8) K/uL Eos # (Auto) (0.0-0.7) K/uL Baso # (Auto) (0.0-0.1) K/uL Nucleated RBC % /100WBC Nucleated RBCs # K/uL APTT 43.5 H 36.6 H (18.6-31.3) SEC Sodium (136-145) mmol/L Potassium (3.5-5.1) mmol/L Chloride (98-107) mmol/L Carbon Dioxide (21.0-32.0) mmol/L BUN (7.0-18.0) mg/dL Creatinine (0.6-1.0) mg/dL Est Cr Clr Drug Dosing mL/min Estimated GFR (MDRD) ml/min Glucose (74-106) mg/dL POC Glucose 107 (60-110) mg/dL Calcium (8.5-10.1) mg/dL Total Bilirubin (0.2-1.0) mg/dL AST (15-37) IU/L ALT (14-63) IU/L Alkaline Phosphatase (46-116) U/L Total Protein (6.4-8.2) g/dL Albumin (3.4-5.0) g/dL Globulin (2.6-4.0) g/dL Albumin/Globulin Ratio (0.9-1.6) 09/16/20 09/17/20 09/17/20 Range/Units 23:30 05:40 05:40 WBC 7.55 (4.0-11.0) K/uL RBC 4.07 L (4.30-5.90) M/uL Hgb 11.1 L (12.0-16.0) g/dL Hct 35.3 L (36.0-46.0) % MCV 86.7 (80.0-98.0) fL MCH 27.3 (27.0-32.0) pg MCHC 31.4 (31.0-37.0) g/dL RDW Std Deviation 46.1 (28.0-62.0) fl RDW Coeff of Sandor 15 (11.0-15.0) % Plt Count 278 (150-400) K/uL MPV 10.60 (7.40-12.00) fL Neut % (Auto) 86.0 H (48.0-80.0) % Lymph % (Auto) 9.5 L (16.0-40.0) % [place] % (Auto) 4.4 (0.0-15.0) % Eos % (Auto) 0.0 (0.0-7.0) % Baso % (Auto) 0.1 (0.0-1.5) % Neut # (Auto) 6.5 H (1.4-5.7) K/uL Lymph # (Auto) 0.7 (0.6-2.4) K/uL [place] # (Auto) 0.3 (0.0-0.8) K/uL Eos # (Auto) 0.0 (0.0-0.7) K/uL Baso # (Auto) 0.0 (0.0-0.1) K/uL Nucleated RBC % 0.0 /100WBC Nucleated RBCs # 0 K/uL APTT 35.4 H 53.5 H (18.6-31.3) SEC Sodium (136-145) mmol/L Potassium (3.5-5.1) mmol/L Chloride (98-107) mmol/L Carbon Dioxide (21.0-32.0) mmol/L BUN (7.0-18.0) mg/dL Creatinine (0.6-1.0) mg/dL Est Cr Clr Drug Dosing mL/min Estimated GFR (MDRD) ml/min Glucose (74-106) mg/dL POC Glucose (60-110) mg/dL Calcium (8.5-10.1) mg/dL Total Bilirubin (0.2-1.0) mg/dL AST (15-37) IU/L ALT (14-63) IU/L Alkaline Phosphatase (46-116) U/L Total Protein (6.4-8.2) g/dL Albumin (3.4-5.0) g/dL Globulin (2.6-4.0) g/dL Albumin/Globulin Ratio (0.9-1.6) 09/17/20 09/17/20 Range/Units 05:40 08:16 WBC (4.0-11.0) K/uL RBC (4.30-5.90) M/uL Hgb (12.0-16.0) g/dL Hct (36.0-46.0) % MCV (80.0-98.0) fL MCH (27.0-32.0) pg MCHC (31.0-37.0) g/dL RDW Std Deviation (28.0-62.0) fl RDW Coeff of Sandor (11.0-15.0) % Plt Count (150-400) K/uL MPV (7.40-12.00) fL Neut % (Auto) (48.0-80.0) % Lymph % (Auto) (16.0-40.0) % [place] % (Auto) (0.0-15.0) % Eos % (Auto) (0.0-7.0) % Baso % (Auto) (0.0-1.5) % Neut # (Auto) (1.4-5.7) K/uL Lymph # (Auto) (0.6-2.4) K/uL [place] # (Auto) (0.0-0.8) K/uL Eos # (Auto) (0.0-0.7) K/uL Baso # (Auto) (0.0-0.1) K/uL Nucleated RBC % /100WBC Nucleated RBCs # K/uL APTT (18.6-31.3) SEC Sodium 140 (136-145) mmol/L Potassium 4.6 (3.5-5.1) mmol/L Chloride 106 (98-107) mmol/L Carbon Dioxide 24.5 (21.0-32.0) mmol/L BUN 34 H (7.0-18.0) mg/dL Creatinine 1.7 H (0.6-1.0) mg/dL Est Cr Clr Drug Dosing 37.22 mL/min Estimated GFR (MDRD) 31.4 ml/min Glucose 160 H (74-106) mg/dL POC Glucose 143 H (60-110) mg/dL Calcium 8.7 (8.5-10.1) mg/dL Total Bilirubin 0.5 (0.2-1.0) mg/dL AST 42 H (15-37) IU/L ALT 47 (14-63) IU/L Alkaline Phosphatase 49 (46-116) U/L Total Protein 6.8 (6.4-8.2) g/dL Albumin 2.4 L (3.4-5.0) g/dL Globulin 4.4 H (2.6-4.0) g/dL Albumin/Globulin Ratio 0.6 L (0.9-1.6) Lucius Results Last 24 Hours: Microbiology 09/15/20 19:23 Aerobic Blood Culture - Preliminary Blood - Venous - Lab Draw NO GROWTH AFTER 1 DAY Anaerobic Blood Culture - Preliminary NO GROWTH AFTER 1 DAY 09/15/20 19:15 Aerobic Blood Culture - Preliminary Blood - Venous NO GROWTH AFTER 1 DAY Anaerobic Blood Culture - Preliminary NO GROWTH AFTER 1 DAY Med Orders - Current: Current Medications Acetaminophen (Tylenol) 650 mg PO Q4H PRN PRN Reason: Pain (Mild 1-3)/fever Last Admin: 09/16/20 22:19 Dose: 650 mg Documented by: Albuterol/Ipratropium (Combivent Respimat) 0 gm INH Q4H PRN PRN Reason: Dyspnea Last Admin: 09/17/20 00:29 Dose: 1 puff Documented by: Dexamethasone (Dexamethasone) 6 mg PO Q24H [facility]EN Last Admin: 09/16/20 22:03 Dose: 6 mg Documented by: Guaifenesin/Codeine Phosphate (Robitussin Ac) 10 ml PO Q6H PRN PRN Reason: Cough Last Admin: 09/17/20 03:27 Dose: 10 ml Documented by: Remdesivir 100 mg/ Sodium (Chloride) 100 mls @ 100 mls/hr IV Q24H [facility] Stop: 09/19/20 20:59 Last Admin: 09/16/20 20:17 Dose: 100 mls/hr Documented by: Azithromycin 500 mg/ Sodium (Chloride) 250 mls @ 250 mls/hr IV Q24H [facility] Last Admin: 09/16/20 22:03 Dose: 250 mls/hr Documented by: Ceftriaxone Sodium/Dextrose (Rocephin In Dextrose,Iso-Osm 1 Gm/50 Ml) 50 mls @ 100 mls/hr IV Q24H [facility] Last Admin: 09/16/20 22:03 Dose: 100 mls/hr Documented by: Heparin Sodium/Sodium Chloride (Heparin 25,000 Units In 1/2 Ns 500 Ml) 500 mls @ 25.951 mls/hr IV TITRATE [facility]; Protocol Last Admin: 09/17/20 10:14 Dose: 13.1 units/kg/hr, 47.881 mls/hr Documented by: Discontinued Medications Acetaminophen (Tylenol Extra Strength) 1,000 mg PO ONETIME ONE Stop: 09/15/20 20:09 Last Admin: 09/15/20 20:15 Dose: 1,000 mg Documented by: Dexamethasone (Decadron) 6 mg IVPUSH ONETIME ONE Stop: 09/15/20 19:31 Last Admin: 09/15/20 20:02 Dose: 6 mg Documented by: Enoxaparin Sodium (Lovenox) 40 mg SUBCUT Q12HR [facility] Last Admin: 09/15/20 23:17 Dose: 40 mg Documented by: Heparin Sodium (Porcine) (Heparin Sodium) 7,500 units IVPUSH .BOLUS ONE Stop: 09/16/20 05:01 Last Admin: 09/16/20 06:31 Dose: 7,500 units Documented by: Heparin Sodium (Porcine) (Heparin Sodium) 1,500 units IVPUSH .BOLUS ONE Stop: 09/16/20 11:44 Last Admin: 09/16/20 11:52 Dose: 1,500 units Documented by: Heparin Sodium (Porcine) (Heparin Sodium) 1,500 units IVPUSH BOLUS ONE Stop: 09/16/20 17:46 Last Admin: 09/16/20 17:53 Dose: 1,500 units Documented by: Heparin Sodium (Porcine) (Heparin Sodium) 1,500 units IVPUSH .BOLUS ONE Stop: 09/17/20 00:01 Last Admin: 09/17/20 00:06 Dose: 1,500 units Documented by: Remdesivir 200 mg/ Sodium (Chloride) 250 mls @ 250 mls/hr IV ONETIME ONE Stop: 09/15/20 19:30 Last Admin: 09/15/20 20:03 Dose: 250 mls/hr Documented by: Sodium Chloride (Normal Saline) 1,000 mls @ 125 mls/hr IV STAT ONE Stop: 09/16/20 04:08 Last Admin: 09/15/20 20:20 Dose: 125 mls/hr Documented by: Lorazepam (Ativan) 1 mg IVPUSH ONETIME ONE Stop: 09/15/20 20:18 Last Admin: 01/23/21 20:21 Dose: 1 mg Documented by: Lorazepam (Ativan) Confirm Administered Dose 2 mg .ROUTE .STK-MED ONE Stop: 09/15/20 20:19 Last Admin: 09/15/20 20:21 Dose: Not Given Documented by: Lorazepam (Ativan) 1 mg PO Q6H PRN PRN Reason: Anxiety - Exam Quality Assessment: Supplemental Oxygen General: Alert, Oriented, Cooperative, No Acute Distress HEENT: EOMI, Mucous Membr. Moist/[place] Neck: Supple Lungs: Other (coarse b.s w. wheezing during expiratory phase ) Cardiovascular: Regular Rate, Regular Rhythm GI/Abdominal Exam: Soft, Non-Tender Neurological: No New Focal Deficit Psy/Mental Status: Alert, Normal Affect, Normal Mood (morbidly obese) Sepsis Event Note - Evaluation Sepsis Screening Result: No Definite Risk - Focused Exam Vital Signs: Vital Signs Temp Temp Resp BP Pulse Ox 09/17/20 10:00 18 133/75 92 L 09/17/20 09:00 13 121/70 88 L 09/17/20 08:00 97.9 F 16 144/89 H 94 L 09/17/20 07:00 20 133/80 92 L 09/17/20 06:00 27 H 137/75 88 L 09/17/20 05:00 97.5 F 97.5 F 21 H 110/68 90 L 09/17/20 04:00 97.9 F 19 145/82 H 90 L 09/17/20 03:54 97.9 F 26 H 145/82 H 90 L 09/17/20 03:39 97.9 F 29 H 134/74 88 L 09/17/20 03:00 98.6 F 29 H 138/74 90 L 09/17/20 02:00 31 H 138/77 91 L 09/17/20 01:00 25 H 126/69 94 L 09/17/20 00:00 99.5 F 14 115/73 88 L - Problem List & Annotations (1) COVID-19 SNOMED Code(s): 954424832 Code(s): U07.1 - COVID-19 Status: Acute Current Visit: Yes (2) Pneumonia due to COVID-19 virus SNOMED Code(s): 222633922481285727 Code(s): U07.1 - COVID-19; J12.82 - PNEUMONIA DUE TO CORONAVIRUS DISEASE 2019 Status: Acute Current Visit: Yes (3) Renal insufficiency SNOMED Code(s): 027982168, 984848009 Code(s): N28.9 - DISORDER OF KIDNEY AND URETER, UNSPECIFIED Status: Acute Current Visit: Yes (4) Persistent cough SNOMED Code(s): 884362874 Code(s): R05 - COUGH Status: Acute Current Visit: No - Problem List Review Problem List Initiated/Reviewed/Updated: Yes - Plan Plan:: 54 yo female admitted for acute hypoxic respiratory failure from COVID pneumonia and acute kidney injury Acute hypoxic respiratory failure: on heated high flow 55% FIO2/60L COVID pneumonia: Treating with dexamethasone, remdesivir, Received 2 units of Convalescent plasma Since consolidation noted in right mid-lower lobe; continue Azithromycin/CTX for concerns for bacterial component as well BRI: creatinine 1.7; improving. Since COVID positive ; can consider small IV LR boluses if necessary; will notify eICU if this is the case (worsening BRI, dehydration etc) elevated d-dimer: continue Heparin Drip Venous Doppler of l.e negative. Concerns for ongoing PE ; V/Q scan ordered; possibly done tomorrow AM once supples available (perfusion component only due to COVID; will clarify)
[2020-09-17 12:10] LABS: HEMOGLOBIN A1C 6.2 %
[2020-09-17] MEDS: REMDESIVIR 100 MG in Sodium Chloride 0.9% 100 ML IV SCH (20:00)
[2020-09-17] MEDS: Benzonatate 100 MG Cap PO PRN (20:21)
[2020-09-17] MEDS: Acetaminophen 325 MG Tab PO PRN (20:47)
[2020-09-17] MEDS: Dexamethasone 4 MG Tab PO SCH (20:59)
[2020-09-17] MEDS: Azithromycin 500 MG in Sodium Chloride 0.9% 250 ML IV SCH (22:10)
[2020-09-18 07:02] LABS: CARBON DIOXIDE,CO2 24.4 mmol/L (21.0-32.0); POTASSIUM,K 4.6 mmol/L (3.5-5.1)
[2020-09-18] MEDS: Codeine/guaiFENesin 10-100 MG/5 ML Syrup 5 ML Cup PO PRN ×3 (08:40→20:59)
[2020-09-18] MEDS: Heparin Sodium/0.45% NaCl 500 ML IV SCH ×2 (09:59→20:31)
--- NOTE | 2020-09-18 11:51 | PCM.PN ---
- General Info Date of Service: 09/18/20 - Review of Systems Systems Review Comment:: breathing a little bit better today - Patient Data Vitals - Most Recent: Last Vital Signs Temp 36.6 C 09/18/20 08:00 Pulse 82 09/15/20 21:12 Resp 38 H 09/18/20 10:00 BP 146/83 H 09/18/20 08:00 Pulse Ox 91 L 09/18/20 10:00 Weight - Most Recent: 182.072 kg I&O - Last 24 Hours: Intake & Output 09/17/20 09/18/20 09/18/20 22:59 06:59 14:59 Intake Total 1474 1200 Output Total 400 500 Balance 1074 700 Lab Results Last 24 Hours: Laboratory Results - last 24 hr 09/17/20 09/17/20 09/17/20 Range/Units 05:40 11:59 12:25 WBC (4.0-11.0) K/uL RBC (4.30-5.90) M/uL Hgb (12.0-16.0) g/dL Hct (36.0-46.0) % MCV (80.0-98.0) fL MCH (27.0-32.0) pg MCHC (31.0-37.0) g/dL RDW Std Deviation (28.0-62.0) fl RDW Coeff of Sandor (11.0-15.0) % Plt Count (150-400) K/uL MPV (7.40-12.00) fL Add Manual Diff Neutrophils % (Manual) (48.0-80.0) % Band Neutrophils % % Lymphocytes % (Manual) (16.0-40.0) % Monocytes % (Manual) (0.0-15.0) % Nucleated RBC % /100WBC Absolute Seg Neuts (1.4-5.7) Band Neutrophils # Lymphocytes # (Manual) (0.6-2.4) Monocytes # (Manual) (0.0-0.8) Nucleated RBCs # K/uL APTT 58.9 H (18.6-31.3) SEC Sodium (136-145) mmol/L Potassium (3.5-5.1) mmol/L Chloride (98-107) mmol/L Carbon Dioxide (21.0-32.0) mmol/L BUN (7.0-18.0) mg/dL Creatinine (0.6-1.0) mg/dL Est Cr Clr Drug Dosing mL/min Estimated GFR (MDRD) ml/min Glucose (74-106) mg/dL POC Glucose 141 H (60-110) mg/dL Hemoglobin A1c 6.2 (4.5 - 6.2) % Calcium (8.5-10.1) mg/dL Total Bilirubin (0.2-1.0) mg/dL AST (15-37) IU/L ALT (14-63) IU/L Alkaline Phosphatase (46-116) U/L Total Protein (6.4-8.2) g/dL Albumin (3.4-5.0) g/dL Globulin (2.6-4.0) g/dL Albumin/Globulin Ratio (0.9-1.6) 09/17/20 09/17/20 09/18/20 Range/Units 17:17 17:43 06:30 WBC 5.87 (4.0-11.0) K/uL RBC 4.03 L (4.30-5.90) M/uL Hgb 11.1 L (12.0-16.0) g/dL Hct 35.0 L (36.0-46.0) % MCV 86.8 (80.0-98.0) fL MCH 27.5 (27.0-32.0) pg MCHC 31.7 (31.0-37.0) g/dL RDW Std Deviation 46.6 (28.0-62.0) fl RDW Coeff of Sandor 15 (11.0-15.0) % Plt Count 308 (150-400) K/uL MPV 9.70 (7.40-12.00) fL Add Manual Diff YES Neutrophils % (Manual) 82 H (48.0-80.0) % Band Neutrophils % 5 % Lymphocytes % (Manual) 11 L (16.0-40.0) % Monocytes % (Manual) 2 (0.0-15.0) % Nucleated RBC % 0.0 /100WBC Absolute Seg Neuts 4.8 (1.4-5.7) Band Neutrophils # 0.3 Lymphocytes # (Manual) 0.6 (0.6-2.4) Monocytes # (Manual) 0.1 (0.0-0.8) Nucleated RBCs # 0 K/uL APTT 53.4 H (18.6-31.3) SEC Sodium (136-145) mmol/L Potassium (3.5-5.1) mmol/L Chloride (98-107) mmol/L Carbon Dioxide (21.0-32.0) mmol/L BUN (7.0-18.0) mg/dL Creatinine (0.6-1.0) mg/dL Est Cr Clr Drug Dosing mL/min Estimated GFR (MDRD) ml/min Glucose (74-106) mg/dL POC Glucose 124 H (60-110) mg/dL Hemoglobin A1c (4.5 - 6.2) % Calcium (8.5-10.1) mg/dL Total Bilirubin (0.2-1.0) mg/dL AST (15-37) IU/L ALT (14-63) IU/L Alkaline Phosphatase (46-116) U/L Total Protein (6.4-8.2) g/dL Albumin (3.4-5.0) g/dL Globulin (2.6-4.0) g/dL Albumin/Globulin Ratio (0.9-1.6) 09/18/20 09/18/20 09/18/20 Range/Units 06:30 06:30 08:36 WBC (4.0-11.0) K/uL RBC (4.30-5.90) M/uL Hgb (12.0-16.0) g/dL Hct (36.0-46.0) % MCV (80.0-98.0) fL MCH (27.0-32.0) pg MCHC (31.0-37.0) g/dL RDW Std Deviation (28.0-62.0) fl RDW Coeff of Sandor (11.0-15.0) % Plt Count (150-400) K/uL MPV (7.40-12.00) fL Add Manual Diff Neutrophils % (Manual) (48.0-80.0) % Band Neutrophils % % Lymphocytes % (Manual) (16.0-40.0) % Monocytes % (Manual) (0.0-15.0) % Nucleated RBC % /100WBC Absolute Seg Neuts (1.4-5.7) Band Neutrophils # Lymphocytes # (Manual) (0.6-2.4) Monocytes # (Manual) (0.0-0.8) Nucleated RBCs # K/uL APTT 57.3 H (18.6-31.3) SEC Sodium 141 (136-145) mmol/L Potassium 4.6 (3.5-5.1) mmol/L Chloride 107 (98-107) mmol/L Carbon Dioxide 24.4 (21.0-32.0) mmol/L BUN 26 H (7.0-18.0) mg/dL Creatinine 1.4 H (0.6-1.0) mg/dL Est Cr Clr Drug Dosing 45.19 mL/min Estimated GFR (MDRD) 39.3 ml/min Glucose 165 H (74-106) mg/dL POC Glucose 144 H (60-110) mg/dL Hemoglobin A1c (4.5 - 6.2) % Calcium 8.6 (8.5-10.1) mg/dL Total Bilirubin 0.5 (0.2-1.0) mg/dL AST 37 (15-37) IU/L ALT 47 (14-63) IU/L Alkaline Phosphatase 51 (46-116) U/L Total Protein 6.9 (6.4-8.2) g/dL Albumin 2.4 L (3.4-5.0) g/dL Globulin 4.5 H (2.6-4.0) g/dL Albumin/Globulin Ratio 0.5 L (0.9-1.6) Lucius Results Last 24 Hours: Microbiology 09/16/20 23:40 Aerobic Blood Culture - Preliminary Blood - Venous - Lab Draw NO GROWTH AFTER 1 DAY Anaerobic Blood Culture - Preliminary NO GROWTH AFTER 1 DAY 09/16/20 23:30 Aerobic Blood Culture - Preliminary Blood - Venous NO GROWTH AFTER 1 DAY Anaerobic Blood Culture - Preliminary NO GROWTH AFTER 1 DAY 09/15/20 19:23 Aerobic Blood Culture - Preliminary Blood - Venous - Lab Draw NO GROWTH AFTER 2 DAYS Anaerobic Blood Culture - Preliminary NO GROWTH AFTER 2 DAYS 09/15/20 19:15 Aerobic Blood Culture - Preliminary Blood - Venous NO GROWTH AFTER 2 DAYS Anaerobic Blood Culture - Preliminary NO GROWTH AFTER 2 DAYS Med Orders - Current: Current Medications Acetaminophen (Tylenol) 650 mg PO Q4H PRN PRN Reason: Pain (Mild 1-3)/fever Last Admin: 09/17/20 20:47 Dose: 650 mg Documented by: Albuterol/Ipratropium (Combivent Respimat) 0 gm INH Q4H PRN PRN Reason: Dyspnea Last Admin: 09/17/20 12:03 Dose: 1 puff Documented by: Benzonatate (Tessalon Perles) 200 mg PO TID PRN PRN Reason: Cough Last Admin: 09/17/20 20:21 Dose: 200 mg Documented by: Dexamethasone (Dexamethasone) 6 mg PO Q24H [facility]EN Last Admin: 09/17/20 20:59 Dose: 6 mg Documented by: Guaifenesin/Codeine Phosphate (Robitussin Ac) 10 ml PO Q6H PRN PRN Reason: Cough Last Admin: 09/18/20 08:40 Dose: 10 ml Documented by: Remdesivir 100 mg/ Sodium (Chloride) 100 mls @ 100 mls/hr IV Q24H [facility] Stop: 09/19/20 20:59 Last Admin: 09/17/20 20:00 Dose: 100 mls/hr Documented by: Azithromycin 500 mg/ Sodium (Chloride) 250 mls @ 250 mls/hr IV Q24H [facility] Last Admin: 09/17/20 22:10 Dose: 250 mls/hr Documented by: Ceftriaxone Sodium/Dextrose (Rocephin In Dextrose,Iso-Osm 1 Gm/50 Ml) 50 mls @ 100 mls/hr IV Q24H [facility] Last Admin: 09/17/20 21:57 Dose: 100 mls/hr Documented by: Heparin Sodium/Sodium Chloride (Heparin 25,000 Units In 1/2 Ns 500 Ml) 500 mls @ 25.951 mls/hr IV TITRATE [facility]; Protocol Last Admin: 09/18/20 09:59 Dose: 13.1 units/kg/hr, 47.881 mls/hr Documented by: Discontinued Medications Acetaminophen (Tylenol Extra Strength) 1,000 mg PO ONETIME ONE Stop: 09/15/20 20:09 Last Admin: 09/15/20 20:15 Dose: 1,000 mg Documented by: Dexamethasone (Decadron) 6 mg IVPUSH ONETIME ONE Stop: 09/15/20 19:31 Last Admin: 09/15/20 20:02 Dose: 6 mg Documented by: Enoxaparin Sodium (Lovenox) 40 mg SUBCUT Q12HR [facility] Last Admin: 09/15/20 23:17 Dose: 40 mg Documented by: Heparin Sodium (Porcine) (Heparin Sodium) 7,500 units IVPUSH .BOLUS ONE Stop: 09/16/20 05:01 Last Admin: 09/16/20 06:31 Dose: 7,500 units Documented by: Heparin Sodium (Porcine) (Heparin Sodium) 1,500 units IVPUSH .BOLUS ONE Stop: 09/16/20 11:44 Last Admin: 09/16/20 11:52 Dose: 1,500 units Documented by: Heparin Sodium (Porcine) (Heparin Sodium) 1,500 units IVPUSH BOLUS ONE Stop: 09/16/20 17:46 Last Admin: 09/16/20 17:53 Dose: 1,500 units Documented by: Heparin Sodium (Porcine) (Heparin Sodium) 1,500 units IVPUSH .BOLUS ONE Stop: 09/17/20 00:01 Last Admin: 09/17/20 00:06 Dose: 1,500 units Documented by: Remdesivir 200 mg/ Sodium (Chloride) 250 mls @ 250 mls/hr IV ONETIME ONE Stop: 09/15/20 19:30 Last Admin: 09/15/20 20:03 Dose: 250 mls/hr Documented by: Sodium Chloride (Normal Saline) 1,000 mls @ 125 mls/hr IV STAT ONE Stop: 09/16/20 04:08 Last Admin: 09/15/20 20:20 Dose: 125 mls/hr Documented by: Lorazepam (Ativan) 1 mg IVPUSH ONETIME ONE Stop: 09/15/20 20:18 Last Admin: 09/15/20 20:21 Dose: 1 mg Documented by: Lorazepam (Ativan) Confirm Administered Dose 2 mg .ROUTE .STK-MED ONE Stop: 09/15/20 20:19 Last Admin: 09/15/20 20:21 Dose: Not Given Documented by: Lorazepam (Ativan) 1 mg PO Q6H PRN PRN Reason: Anxiety - Exam General: Alert, Oriented Neck: Supple Lungs: Clear to Auscultation, Normal Respiratory Effort Cardiovascular: Regular Rate, Regular Rhythm Extremities: Non-Tender, Pedal Edema (+1) Skin: Warm, Dry, Intact Neurological: No New Focal Deficit Sepsis Event Note - Evaluation Sepsis Screening Result: No Definite Risk - Focused Exam Vital Signs: Vital Signs Temp Resp BP Pulse Ox 09/18/20 10:00 38 H 91 L 09/18/20 09:00 17 93 L 09/18/20 08:00 36.6 C 37 H 146/83 H 88 L 09/18/20 07:00 37 H 92 L 09/18/20 06:00 38 H 91 L 09/18/20 05:00 36.0 C L 27 H 136/84 94 L 09/18/20 04:00 39 H 92 L 09/18/20 03:00 37 H 92 L 09/18/20 02:00 38 H 90 L 09/18/20 01:00 24 H 88 L 09/18/20 00:00 37.4 C 29 H 138/72 90 L - Problem List Review Problem List Initiated/Reviewed/Updated: Yes - My Orders Last 24 Hours: My Active Orders 09/17/20 22:33 Communication Order [RC] ROUTINE - Plan Plan:: 54 yo female admitted for acute hypoxic respiratory failure from COVID pneumonia and acute kidney injury Acute hypoxic respiratory failure: on heated high flow 60% FIO2/60L COVID pneumonia: Treating with dexamethasone, remdesivir, Received 2 units of Convalescent plasma Since consolidation noted in right mid-lower lobe; continue Azithromycin/CTX for concerns for bacterial component as well BRI: creatinine 1.4; improving. elevated d-dimer: continue Heparin Drip perfusion study ordered
[2020-09-18] MEDS ORDERED: Bumetanide 1 MG Tab PO ONE ×2 (11:52→14:10)
--- NOTE | 2020-09-18 13:46 | NM ---
Indication: Dyspnea for 1 week. COVID. Technique: A nuclear medicine perfusion scan only was performed. The examination was performed following the intravenous administration of 5 millicuries of technetium 99 M MAA. A ventilation portion of the study was not performed. Comparison: No prior nuclear medicine studies. I have reviewed the chest radiograph from 09/15/2020 Findings: There are multiple perfusion defects identified which roughly correspond to the areas of masslike consolidation on the chest x-ray. However, in the absence of a ventilation scan, this study is indeterminate regarding pulmonary embolus. Impression: Indeterminate regarding pulmonary embolus. There are multiple perfusion defects that roughly correspond to the multifocal consolidation noted on chest radiography. Dictated by Shukri Webb MD @ Sep 18 2020 1:37PM Signed by Dr. Shukri Webb @ Sep 18 2020 1:44PM
--- NOTE | 2020-09-18 14:53 | CR ---
HISTORY: Pulmonary perfusion imaging. TECHNIQUE: One view of the chest. COMPARISON: 09/15/2020. FINDINGS: There are persistent bilateral lung infiltrates, right greater left. On the right, the infiltrate is dense and somewhat mass like, especially within the right midlung zone laterally. These may relate to bilateral pneumonia. An underlying malignant process is not excluded and radiographic followup to confirm appropriate resolution is suggested. There is no pneumothorax. No moderate or large pleural effusion. Cardiac size is stable. IMPRESSION: Persistent bilateral lung infiltrates with areas of dense consolidation within the right lung. Radiographic followup to confirm resolution is recommended. Dictated by Munir Iglesias MD @ Sep 18 2020 2:52PM Signed by Dr. Munir Iglesias @ Sep 18 2020 2:52PM
[2020-09-18] MEDS: REMDESIVIR 100 MG in Sodium Chloride 0.9% 100 ML IV SCH (20:41)
[2020-09-18] MEDS: Dexamethasone 4 MG Tab PO SCH (21:56)
[2020-09-18] MEDS: Azithromycin 500 MG in Sodium Chloride 0.9% 250 ML IV SCH (22:25)
[2020-09-19] MEDS: Codeine/guaiFENesin 10-100 MG/5 ML Syrup 5 ML Cup PO PRN ×3 (05:04→18:21)
[2020-09-19 07:11] LABS: CARBON DIOXIDE,CO2 23.3 mmol/L (21.0-32.0); POTASSIUM,K 4.8 mmol/L (3.5-5.1)
[2020-09-19] MEDS: Heparin Sodium/0.45% NaCl 500 ML IV SCH ×2 (08:40→19:17)
[2020-09-19] MEDS ORDERED: Bumetanide 1 MG Tab PO ONE (09:30)
--- NOTE | 2020-09-19 11:24 | PCM.PN ---
- General Info Date of Service: 09/19/20 - Review of Systems Systems Review Comment:: shortness of breath improving - Patient Data Vitals - Most Recent: Last Vital Signs Temp 36.6 C 09/19/20 09:00 Pulse 93 09/19/20 05:06 Resp 19 09/19/20 10:00 BP 136/73 09/19/20 09:00 Pulse Ox 93 L 09/19/20 10:00 Weight - Most Recent: 183.297 kg I&O - Last 24 Hours: Intake & Output 09/18/20 09/19/20 09/19/20 22:59 06:59 14:59 Intake Total 1056 60 Output Total 1300 1850 Balance -244 -1790 Lab Results Last 24 Hours: Laboratory Results - last 24 hr 09/18/20 09/19/20 09/19/20 Range/Units 17:44 06:07 06:07 WBC 6.97 (4.0-11.0) K/uL RBC 4.09 L (4.30-5.90) M/uL Hgb 11.3 L (12.0-16.0) g/dL Hct 35.6 L (36.0-46.0) % MCV 87.0 (80.0-98.0) fL MCH 27.6 (27.0-32.0) pg MCHC 31.7 (31.0-37.0) g/dL RDW Std Deviation 46.6 (28.0-62.0) fl RDW Coeff of Sandor 15 (11.0-15.0) % Plt Count 311 (150-400) K/uL MPV 10.70 (7.40-12.00) fL Add Manual Diff YES Neutrophils % (Manual) 77 (48.0-80.0) % Band Neutrophils % 10 % Lymphocytes % (Manual) 7 L (16.0-40.0) % Monocytes % (Manual) 4 (0.0-15.0) % Myelocytes % 2 % Nucleated RBC % 0.0 /100WBC Absolute Seg Neuts 5.4 (1.4-5.7) Band Neutrophils # 0.7 Lymphocytes # (Manual) 0.5 L (0.6-2.4) Monocytes # (Manual) 0.3 (0.0-0.8) Absolute Myelocytes 0.1 Nucleated RBCs # 0 K/uL APTT (18.6-31.3) SEC Sodium 138 (136-145) mmol/L Potassium 4.8 (3.5-5.1) mmol/L Chloride 106 (98-107) mmol/L Carbon Dioxide 23.3 (21.0-32.0) mmol/L BUN 23 H (7.0-18.0) mg/dL Creatinine 1.3 H (0.6-1.0) mg/dL Est Cr Clr Drug Dosing 48.67 mL/min Estimated GFR (MDRD) 42.8 ml/min Glucose 207 H (74-106) mg/dL POC Glucose 112 H (60-110) mg/dL Calcium 8.8 (8.5-10.1) mg/dL Total Bilirubin 0.5 (0.2-1.0) mg/dL AST 42 H (15-37) IU/L ALT 41 (14-63) IU/L Alkaline Phosphatase 47 (46-116) U/L Total Protein 7.0 (6.4-8.2) g/dL Albumin 2.3 L (3.4-5.0) g/dL Globulin 4.7 H (2.6-4.0) g/dL Albumin/Globulin Ratio 0.5 L (0.9-1.6) 09/19/20 09/19/20 Range/Units 06:07 08:55 WBC (4.0-11.0) K/uL RBC (4.30-5.90) M/uL Hgb (12.0-16.0) g/dL Hct (36.0-46.0) % MCV (80.0-98.0) fL MCH (27.0-32.0) pg MCHC (31.0-37.0) g/dL RDW Std Deviation (28.0-62.0) fl RDW Coeff of Sandor (11.0-15.0) % Plt Count (150-400) K/uL MPV (7.40-12.00) fL Add Manual Diff Neutrophils % (Manual) (48.0-80.0) % Band Neutrophils % % Lymphocytes % (Manual) (16.0-40.0) % Monocytes % (Manual) (0.0-15.0) % Myelocytes % % Nucleated RBC % /100WBC Absolute Seg Neuts (1.4-5.7) Band Neutrophils # Lymphocytes # (Manual) (0.6-2.4) Monocytes # (Manual) (0.0-0.8) Absolute Myelocytes Nucleated RBCs # K/uL APTT 55.9 H (18.6-31.3) SEC Sodium (136-145) mmol/L Potassium (3.5-5.1) mmol/L Chloride (98-107) mmol/L Carbon Dioxide (21.0-32.0) mmol/L BUN (7.0-18.0) mg/dL Creatinine (0.6-1.0) mg/dL Est Cr Clr Drug Dosing mL/min Estimated GFR (MDRD) ml/min Glucose (74-106) mg/dL POC Glucose 172 H (60-110) mg/dL Calcium (8.5-10.1) mg/dL Total Bilirubin (0.2-1.0) mg/dL AST (15-37) IU/L ALT (14-63) IU/L Alkaline Phosphatase (46-116) U/L Total Protein (6.4-8.2) g/dL Albumin (3.4-5.0) g/dL Globulin (2.6-4.0) g/dL Albumin/Globulin Ratio (0.9-1.6) Lucius Results Last 24 Hours: Microbiology 09/16/20 23:40 Aerobic Blood Culture - Preliminary Blood - Venous - Lab Draw NO GROWTH AFTER 2 DAYS Anaerobic Blood Culture - Preliminary NO GROWTH AFTER 2 DAYS 09/16/20 23:30 Aerobic Blood Culture - Preliminary Blood - Venous NO GROWTH AFTER 2 DAYS Anaerobic Blood Culture - Preliminary NO GROWTH AFTER 2 DAYS 09/15/20 19:23 Aerobic Blood Culture - Preliminary Blood - Venous - Lab Draw NO GROWTH AFTER 3 DAYS Anaerobic Blood Culture - Preliminary NO GROWTH AFTER 3 DAYS 09/15/20 19:15 Aerobic Blood Culture - Preliminary Blood - Venous NO GROWTH AFTER 3 DAYS Anaerobic Blood Culture - Preliminary NO GROWTH AFTER 3 DAYS Med Orders - Current: Current Medications Acetaminophen (Tylenol) 650 mg PO Q4H PRN PRN Reason: Pain (Mild 1-3)/fever Last Admin: 09/17/20 20:47 Dose: 650 mg Documented by: Albuterol/Ipratropium (Combivent Respimat) 0 gm INH Q4H PRN PRN Reason: Dyspnea Last Admin: 09/17/20 12:03 Dose: 1 puff Documented by: Benzonatate (Tessalon Perles) 200 mg PO TID PRN PRN Reason: Cough Last Admin: 09/17/20 20:21 Dose: 200 mg Documented by: Dexamethasone (Dexamethasone) 6 mg PO Q24H [facility] Last Admin: 09/18/20 21:56 Dose: 6 mg Documented by: Guaifenesin/Codeine Phosphate (Robitussin Ac) 10 ml PO Q6H PRN PRN Reason: Cough Last Admin: 09/19/20 05:04 Dose: 10 ml Documented by: Remdesivir 100 mg/ Sodium (Chloride) 100 mls @ 100 mls/hr IV Q24H [facility] Stop: 09/19/20 20:59 Last Admin: 09/18/20 20:41 Dose: 100 mls/hr Documented by: Azithromycin 500 mg/ Sodium (Chloride) 250 mls @ 250 mls/hr IV Q24H [facility] Last Admin: 09/18/20 22:25 Dose: 250 mls/hr Documented by: Ceftriaxone Sodium/Dextrose (Rocephin In Dextrose,Iso-Osm 1 Gm/50 Ml) 50 mls @ 100 mls/hr IV Q24H [facility] Last Admin: 09/18/20 21:57 Dose: 100 mls/hr Documented by: Heparin Sodium/Sodium Chloride (Heparin 25,000 Units In 1/2 Ns 500 Ml) 500 mls @ 25.951 mls/hr IV TITRATE [facility]; Protocol Last Admin: 09/19/20 08:40 Dose: 13.1 units/kg/hr, 47.881 mls/hr Documented by: Discontinued Medications Acetaminophen (Tylenol Extra Strength) 1,000 mg PO ONETIME ONE Stop: 09/15/20 20:09 Last Admin: 09/15/20 20:15 Dose: 1,000 mg Documented by: Bumetanide (Bumex) 1 mg PO ONETIME ONE Stop: 09/18/20 14:11 Last Admin: 09/18/20 14:16 Dose: 1 mg Documented by: Bumetanide (Bumex) 1 mg PO ONETIME ONE Stop: 09/19/20 09:31 Last Admin: 09/19/20 10:18 Dose: 1 mg Documented by: Dexamethasone (Decadron) 6 mg IVPUSH ONETIME ONE Stop: 09/15/20 19:31 Last Admin: 09/15/20 20:02 Dose: 6 mg Documented by: Enoxaparin Sodium (Lovenox) 40 mg SUBCUT Q12HR [facility]EN Last Admin: 09/15/20 23:17 Dose: 40 mg Documented by: Heparin Sodium (Porcine) (Heparin Sodium) 7,500 units IVPUSH .BOLUS ONE Stop: 09/16/20 05:01 Last Admin: 09/16/20 06:31 Dose: 7,500 units Documented by: Heparin Sodium (Porcine) (Heparin Sodium) 1,500 units IVPUSH .BOLUS ONE Stop: 09/16/20 11:44 Last Admin: 09/16/20 11:52 Dose: 1,500 units Documented by: Heparin Sodium (Porcine) (Heparin Sodium) 1,500 units IVPUSH BOLUS ONE Stop: 09/16/20 17:46 Last Admin: 09/16/20 17:53 Dose: 1,500 units Documented by: Heparin Sodium (Porcine) (Heparin Sodium) 1,500 units IVPUSH .BOLUS ONE Stop: 09/17/20 00:01 Last Admin: 09/17/20 00:06 Dose: 1,500 units Documented by: Remdesivir 200 mg/ Sodium (Chloride) 250 mls @ 250 mls/hr IV ONETIME ONE Stop: 09/15/20 19:30 Last Admin: 09/15/20 20:03 Dose: 250 mls/hr Documented by: Sodium Chloride (Normal Saline) 1,000 mls @ 125 mls/hr IV STAT ONE Stop: 09/16/20 04:08 Last Admin: 09/15/20 20:20 Dose: 125 mls/hr Documented by: Lorazepam (Ativan) 1 mg IVPUSH ONETIME ONE Stop: 09/15/20 20:18 Last Admin: 09/15/20 20:21 Dose: 1 mg Documented by: Lorazepam (Ativan) Confirm Administered Dose 2 mg .ROUTE .STK-MED ONE Stop: 09/15/20 20:19 Last Admin: 09/15/20 20:21 Dose: Not Given Documented by: Lorazepam (Ativan) 1 mg PO Q6H PRN PRN Reason: Anxiety - Exam General: Alert, Oriented Neck: Supple Lungs: Clear to Auscultation, Normal Respiratory Effort Cardiovascular: Regular Rate, Regular Rhythm GI/Abdominal Exam: Soft, Non-Tender, No Distention Extremities: Non-Tender, Pedal Edema Skin: Warm, Dry, Intact Sepsis Event Note - Evaluation Sepsis Screening Result: No Definite Risk - Focused Exam Vital Signs: Vital Signs Temp Temp Pulse Resp BP Pulse Ox 09/19/20 10:00 19 93 L 09/19/20 09:00 36.6 C 19 136/73 90 L 09/19/20 08:00 19 91 L 09/19/20 07:00 38 H 93 L 09/19/20 05:06 36.3 C 93 23 H 93 L 09/19/20 00:05 37.3 C 85 26 H 146/70 H 93 L - Problem List Review Problem List Initiated/Reviewed/Updated: Yes - Plan Plan:: 54 yo female admitted for acute hypoxic respiratory failure from COVID pneumonia and acute kidney injury Acute hypoxic respiratory failure: on heated high flow 60% FIO2/60L COVID pneumonia: Treating with dexamethasone, remdesivir, Received 2 units of Convalescent plasma Since consolidation noted in right mid-lower lobe; continue Azithromycin/CTX for concerns for bacterial component as well BRI: creatinine 1.3; improving. elevated d-dimer: continue Heparin Drip, perfusion study intermediate, will consider CTA once creatinine improves.
[2020-09-19] MEDS: REMDESIVIR 100 MG in Sodium Chloride 0.9% 100 ML IV SCH (19:39)
[2020-09-19] MEDS: Dexamethasone 4 MG Tab PO SCH (20:59)
[2020-09-19] MEDS: Albuterol/Ipratropium 4 GM Inhalation Spray INH PRN (22:00)
[2020-09-19] MEDS: Benzonatate 100 MG Cap PO PRN (22:15)
[2020-09-19] MEDS: Azithromycin 500 MG in Sodium Chloride 0.9% 250 ML IV SCH (22:36)
[2020-09-20 05:33] LABS: CARBON DIOXIDE,CO2 21.1 mmol/L (21.0-32.0); POTASSIUM,K 4.7 mmol/L (3.5-5.1)
[2020-09-20] MEDS: Heparin Sodium/0.45% NaCl 500 ML IV SCH ×2 (06:48→18:45)
[2020-09-20] MEDS: Codeine/guaiFENesin 10-100 MG/5 ML Syrup 5 ML Cup PO PRN ×2 (08:12→18:08)
--- NOTE | 2020-09-20 09:05 | PCM.PN ---
- General Info Date of Service: 09/20/20 Subjective Update: Bedside: pt endorses feeling better ; less coughing fits. Feels more alert and less fatigued today. WSOB+ coughing fits increase w. ambulation - Review of Systems General: Reports: No Symptoms HEENT: Reports: No Symptoms Pulmonary: Reports: Shortness of Breath, Cough. Denies: Sputum Cardiovascular: Reports: Dyspnea on Exertion Gastrointestinal: Denies: Constipation, Diarrhea, Nausea, Vomiting Genitourinary: Reports: No Symptoms Musculoskeletal: Reports: No Symptoms Skin: Reports: No Symptoms Neurological: Reports: No Symptoms - Patient Data Vitals - Most Recent: Last Vital Signs Temp 98.2 F 09/20/20 08:00 Pulse 93 09/19/20 05:06 Resp 14 09/20/20 08:00 BP 135/78 09/20/20 08:00 Pulse Ox 92 L 09/20/20 08:00 Weight - Most Recent: 182.429 kg I&O - Last 24 Hours: Intake & Output 09/19/20 09/20/20 09/20/20 22:59 06:59 14:59 Intake Total 785 1003 Output Total 1700 600 Balance -915 403 Lab Results Last 24 Hours: Laboratory Results - last 24 hr 09/19/20 09/19/20 09/19/20 Range/Units 08:55 13:09 17:47 WBC (4.0-11.0) K/uL RBC (4.30-5.90) M/uL Hgb (12.0-16.0) g/dL Hct (36.0-46.0) % MCV (80.0-98.0) fL MCH (27.0-32.0) pg MCHC (31.0-37.0) g/dL RDW Std Deviation (28.0-62.0) fl RDW Coeff of Sandor (11.0-15.0) % Plt Count (150-400) K/uL MPV (7.40-12.00) fL Add Manual Diff Neutrophils % (Manual) (48.0-80.0) % Band Neutrophils % % Lymphocytes % (Manual) (16.0-40.0) % Monocytes % (Manual) (0.0-15.0) % Metamyelocytes % % Myelocytes % % Nucleated RBC % /100WBC Absolute Seg Neuts (1.4-5.7) Band Neutrophils # Lymphocytes # (Manual) (0.6-2.4) Monocytes # (Manual) (0.0-0.8) Absolute Metamyelocyte Absolute Myelocytes Nucleated RBCs # K/uL APTT (18.6-31.3) SEC Sodium (136-145) mmol/L Potassium (3.5-5.1) mmol/L Chloride (98-107) mmol/L Carbon Dioxide (21.0-32.0) mmol/L BUN (7.0-18.0) mg/dL Creatinine (0.6-1.0) mg/dL Est Cr Clr Drug Dosing mL/min Estimated GFR (MDRD) ml/min Glucose (74-106) mg/dL POC Glucose 172 H 130 H 112 H (60-110) mg/dL Calcium (8.5-10.1) mg/dL Total Bilirubin (0.2-1.0) mg/dL AST (15-37) IU/L ALT (14-63) IU/L Alkaline Phosphatase (46-116) U/L Total Protein (6.4-8.2) g/dL Albumin (3.4-5.0) g/dL Globulin (2.6-4.0) g/dL Albumin/Globulin Ratio (0.9-1.6) 09/20/20 09/20/20 09/20/20 Range/Units 04:55 04:55 04:55 WBC 7.76 (4.0-11.0) K/uL RBC 4.21 L (4.30-5.90) M/uL Hgb 11.8 L (12.0-16.0) g/dL Hct 36.8 (36.0-46.0) % MCV 87.4 (80.0-98.0) fL MCH 28.0 (27.0-32.0) pg MCHC 32.1 (31.0-37.0) g/dL RDW Std Deviation 46.7 (28.0-62.0) fl RDW Coeff of Sandor 15 (11.0-15.0) % Plt Count 304 (150-400) K/uL MPV 10.30 (7.40-12.00) fL Add Manual Diff YES Neutrophils % (Manual) 74 (48.0-80.0) % Band Neutrophils % 10 % Lymphocytes % (Manual) 10 L (16.0-40.0) % Monocytes % (Manual) 2 (0.0-15.0) % Metamyelocytes % 2 % Myelocytes % 2 % Nucleated RBC % 0.0 /100WBC Absolute Seg Neuts 5.7 (1.4-5.7) Band Neutrophils # 0.8 Lymphocytes # (Manual) 0.8 (0.6-2.4) Monocytes # (Manual) 0.2 (0.0-0.8) Absolute Metamyelocyte 0.2 Absolute Myelocytes 0.2 Nucleated RBCs # 0 K/uL APTT 62.4 H (18.6-31.3) SEC Sodium 139 (136-145) mmol/L Potassium 4.7 (3.5-5.1) mmol/L Chloride 107 (98-107) mmol/L Carbon Dioxide 21.1 (21.0-32.0) mmol/L BUN 31 H (7.0-18.0) mg/dL Creatinine 1.2 H (0.6-1.0) mg/dL Est Cr Clr Drug Dosing 52.72 mL/min Estimated GFR (MDRD) 47.0 ml/min Glucose 187 H (74-106) mg/dL POC Glucose (60-110) mg/dL Calcium 9.0 (8.5-10.1) mg/dL Total Bilirubin 0.4 (0.2-1.0) mg/dL AST 46 H (15-37) IU/L ALT 39 (14-63) IU/L Alkaline Phosphatase 48 (46-116) U/L Total Protein 7.1 (6.4-8.2) g/dL Albumin 2.3 L (3.4-5.0) g/dL Globulin 4.8 H (2.6-4.0) g/dL Albumin/Globulin Ratio 0.5 L (0.9-1.6) 09/20/20 Range/Units 06:53 WBC (4.0-11.0) K/uL RBC (4.30-5.90) M/uL Hgb (12.0-16.0) g/dL Hct (36.0-46.0) % MCV (80.0-98.0) fL MCH (27.0-32.0) pg MCHC (31.0-37.0) g/dL RDW Std Deviation (28.0-62.0) fl RDW Coeff of Sandor (11.0-15.0) % Plt Count (150-400) K/uL MPV (7.40-12.00) fL Add Manual Diff Neutrophils % (Manual) (48.0-80.0) % Band Neutrophils % % Lymphocytes % (Manual) (16.0-40.0) % Monocytes % (Manual) (0.0-15.0) % Metamyelocytes % % Myelocytes % % Nucleated RBC % /100WBC Absolute Seg Neuts (1.4-5.7) Band Neutrophils # Lymphocytes # (Manual) (0.6-2.4) Monocytes # (Manual) (0.0-0.8) Absolute Metamyelocyte Absolute Myelocytes Nucleated RBCs # K/uL APTT (18.6-31.3) SEC Sodium (136-145) mmol/L Potassium (3.5-5.1) mmol/L Chloride (98-107) mmol/L Carbon Dioxide (21.0-32.0) mmol/L BUN (7.0-18.0) mg/dL Creatinine (0.6-1.0) mg/dL Est Cr Clr Drug Dosing mL/min Estimated GFR (MDRD) ml/min Glucose (74-106) mg/dL POC Glucose 174 H (60-110) mg/dL Calcium (8.5-10.1) mg/dL Total Bilirubin (0.2-1.0) mg/dL AST (15-37) IU/L ALT (14-63) IU/L Alkaline Phosphatase (46-116) U/L Total Protein (6.4-8.2) g/dL Albumin (3.4-5.0) g/dL Globulin (2.6-4.0) g/dL Albumin/Globulin Ratio (0.9-1.6) Lucius Results Last 24 Hours: Microbiology 09/16/20 23:40 Aerobic Blood Culture - Preliminary Blood - Venous - Lab Draw NO GROWTH AFTER 3 DAYS Anaerobic Blood Culture - Preliminary NO GROWTH AFTER 3 DAYS 09/16/20 23:30 Aerobic Blood Culture - Preliminary Blood - Venous NO GROWTH AFTER 3 DAYS Anaerobic Blood Culture - Preliminary NO GROWTH AFTER 3 DAYS 09/15/20 19:23 Aerobic Blood Culture - Preliminary Blood - Venous - Lab Draw NO GROWTH AFTER 4 DAYS Anaerobic Blood Culture - Preliminary NO GROWTH AFTER 4 DAYS 09/15/20 19:15 Aerobic Blood Culture - Preliminary Blood - Venous NO GROWTH AFTER 4 DAYS Anaerobic Blood Culture - Preliminary NO GROWTH AFTER 4 DAYS Med Orders - Current: Current Medications Acetaminophen (Tylenol) 650 mg PO Q4H PRN PRN Reason: Pain (Mild 1-3)/fever Last Admin: 09/17/20 20:47 Dose: 650 mg Documented by: Albuterol/Ipratropium (Combivent Respimat) 0 gm INH Q4H PRN PRN Reason: Dyspnea Last Admin: 09/19/20 22:00 Dose: 1 puff Documented by: Benzonatate (Tessalon Perles) 200 mg PO TID PRN PRN Reason: Cough Last Admin: 09/19/20 22:15 Dose: 200 mg Documented by: Dexamethasone (Dexamethasone) 6 mg PO Q24H [facility]EN Last Admin: 09/19/20 20:59 Dose: 6 mg Documented by: Guaifenesin/Codeine Phosphate (Robitussin Ac) 10 ml PO Q6H PRN PRN Reason: Cough Last Admin: 09/20/20 08:12 Dose: 10 ml Documented by: Azithromycin 500 mg/ Sodium (Chloride) 250 mls @ 250 mls/hr IV Q24H [facility] Last Admin: 09/19/20 22:36 Dose: 250 mls/hr Documented by: Ceftriaxone Sodium/Dextrose (Rocephin In Dextrose,Iso-Osm 1 Gm/50 Ml) 50 mls @ 100 mls/hr IV Q24H [facility] Last Admin: 09/19/20 21:45 Dose: 100 mls/hr Documented by: Heparin Sodium/Sodium Chloride (Heparin 25,000 Units In 1/2 Ns 500 Ml) 500 mls @ 25.951 mls/hr IV TITRATE [facility]; Protocol Last Admin: 09/20/20 06:48 Dose: 13.1 units/kg/hr, 47.881 mls/hr Documented by: Discontinued Medications Acetaminophen (Tylenol Extra Strength) 1,000 mg PO ONETIME ONE Stop: 09/15/20 20:09 Last Admin: 09/15/20 20:15 Dose: 1,000 mg Documented by: Bumetanide (Bumex) 1 mg PO ONETIME ONE Stop: 09/18/20 14:11 Last Admin: 09/18/20 14:16 Dose: 1 mg Documented by: Bumetanide (Bumex) 1 mg PO ONETIME ONE Stop: 09/19/20 09:31 Last Admin: 09/19/20 10:18 Dose: 1 mg Documented by: Dexamethasone (Decadron) 6 mg IVPUSH ONETIME ONE Stop: 09/15/20 19:31 Last Admin: 09/15/20 20:02 Dose: 6 mg Documented by: Enoxaparin Sodium (Lovenox) 40 mg SUBCUT Q12HR [facility] Last Admin: 09/15/20 23:17 Dose: 40 mg Documented by: Heparin Sodium (Porcine) (Heparin Sodium) 7,500 units IVPUSH .BOLUS ONE Stop: 09/16/20 05:01 Last Admin: 09/16/20 06:31 Dose: 7,500 units Documented by: Heparin Sodium (Porcine) (Heparin Sodium) 1,500 units IVPUSH .BOLUS ONE Stop: 09/16/20 11:44 Last Admin: 09/16/20 11:52 Dose: 1,500 units Documented by: Heparin Sodium (Porcine) (Heparin Sodium) 1,500 units IVPUSH BOLUS ONE Stop: 09/16/20 17:46 Last Admin: 09/16/20 17:53 Dose: 1,500 units Documented by: Heparin Sodium (Porcine) (Heparin Sodium) 1,500 units IVPUSH .BOLUS ONE Stop: 09/17/20 00:01 Last Admin: 09/17/20 00:06 Dose: 1,500 units Documented by: Remdesivir 200 mg/ Sodium (Chloride) 250 mls @ 250 mls/hr IV ONETIME ONE Stop: 09/15/20 19:30 Last Admin: 09/15/20 20:03 Dose: 250 mls/hr Documented by: Sodium Chloride (Normal Saline) 1,000 mls @ 125 mls/hr IV STAT ONE Stop: 09/16/20 04:08 Last Admin: 09/15/20 20:20 Dose: 125 mls/hr Documented by: Remdesivir 100 mg/ Sodium (Chloride) 100 mls @ 100 mls/hr IV Q24H [facility] Stop: 09/19/20 20:59 Last Infusion: 09/19/20 19:40 Dose: 100 mls/hr Documented by: Lorazepam (Ativan) 1 mg IVPUSH ONETIME ONE Stop: 09/15/20 20:18 Last Admin: 09/15/20 20:21 Dose: 1 mg Documented by: Lorazepam (Ativan) Confirm Administered Dose 2 mg .ROUTE .STK-MED ONE Stop: 09/15/20 20:19 Last Admin: 09/15/20 20:21 Dose: Not Given Documented by: Lorazepam (Ativan) 1 mg PO Q6H PRN PRN Reason: Anxiety - Exam Quality Assessment: Supplemental Oxygen General: Alert, Oriented, Cooperative, No Acute Distress HEENT: EOMI, Mucous Membr. Moist/[place] Neck: Supple Lungs: Other (mild crackles in right lung fielf; no acute wheezes and or rales noted today ) Cardiovascular: Regular Rate, Regular Rhythm GI/Abdominal Exam: Soft, Non-Tender Extremities: No Pedal Edema Neurological: No New Focal Deficit Psy/Mental Status: Alert, Normal Affect, Normal Mood Sepsis Event Note - Evaluation Sepsis Screening Result: No Definite Risk - Focused Exam Vital Signs: Vital Signs Temp Resp BP Pulse Ox Pulse Ox 09/20/20 08:00 98.2 F 14 135/78 92 L 09/20/20 07:00 14 92 L 09/20/20 06:00 37 H 93 L 09/20/20 05:00 32 H 91 L 92 L 09/20/20 04:00 97.7 F 28 H 90 L 09/20/20 03:00 34 H 93 L 09/20/20 02:00 27 H 93 L 09/20/20 01:00 25 H 89 L 09/20/20 00:00 98.1 F 32 H 91 L 09/19/20 23:00 23 H 93 L 09/19/20 22:00 20 87 L 09/19/20 21:00 33 H 91 L - Problem List & Annotations (1) COVID-19 SNOMED Code(s): 760269419 Code(s): U07.1 - COVID-19 Status: Acute Current Visit: Yes (2) Pneumonia due to COVID-19 virus SNOMED Code(s): 902725488230974956 Code(s): U07.1 - COVID-19; J12.82 - PNEUMONIA DUE TO CORONAVIRUS DISEASE 2019 Status: Acute Current Visit: Yes (3) Renal insufficiency SNOMED Code(s): 088717342, 334916474 Code(s): N28.9 - DISORDER OF KIDNEY AND URETER, UNSPECIFIED Status: Acute Current Visit: Yes (4) Persistent cough SNOMED Code(s): 201054472 Code(s): R05 - COUGH Status: Acute Current Visit: No - Problem List Review Problem List Initiated/Reviewed/Updated: Yes - Plan Plan:: 54 yo female admitted for acute hypoxic respiratory failure from COVID pneumonia and acute kidney injury Acute hypoxic respiratory failure: on heated high flow 50% FIO2/40L COVID pneumonia: Treating with dexamethasone, completed remdesivir, Received 2 units of Convalescent plasma Since consolidation noted in right mid-lower lobe; continue Azithromycin/CTX for concerns for bacterial component as well BRI: creatinine 1.2; improving. Can provide additional dose of Bumex today o netime and periodically reassess fluid status ; currently euvolemic elevated d-dimer: continue Heparin Drip, perfusion study intermediate, will consider CTA once creatinine improves and hydration status is nominal Start PPI daily PO
[2020-09-20] MEDS ORDERED: Bumetanide 1 MG Tab PO ONE (09:24)
[2020-09-20] MEDS: Pantoprazole 40 MG Tab.CR PO SCH (09:39)
[2020-09-20] MEDS: Nystatin Topical Powder 15 GM Bottle TOP SCH ×3 (11:05→22:43)
[2020-09-20] MEDS: Benzonatate 100 MG Cap PO PRN (11:21)
[2020-09-20] MEDS: Dexamethasone 4 MG Tab PO SCH (21:44)
[2020-09-20] MEDS: Azithromycin 500 MG in Sodium Chloride 0.9% 250 ML IV SCH (22:37)
[2020-09-21] MEDS: Heparin Sodium/0.45% NaCl 500 ML IV SCH ×2 (05:15→19:45)
[2020-09-21] MEDS: Nystatin Topical Powder 15 GM Bottle TOP SCH ×3 (05:25→21:39)
[2020-09-21 05:51] LABS: CARBON DIOXIDE,CO2 22.3 mmol/L (21.0-32.0)
[2020-09-21] MEDS: Pantoprazole 40 MG Tab.CR PO SCH (06:37)
--- NOTE | 2020-09-21 07:47 | PCM.PN ---
- General Info Date of Service: 09/21/20 Subjective Update: Bedside: endorses feeling better but still having couginh fits. Denies any CP, distress and or diarrhea - Review of Systems General: Reports: No Symptoms HEENT: Reports: No Symptoms Pulmonary: Reports: Shortness of Breath, Cough. Denies: Sputum, Wheezing Cardiovascular: Reports: No Symptoms Gastrointestinal: Denies: Abdominal Pain, Constipation, Diarrhea, Nausea, Vomiting Genitourinary: Reports: No Symptoms Musculoskeletal: Reports: No Symptoms Neurological: Denies: Headache Psychiatric: Denies: Confusion - Patient Data Vitals - Most Recent: Last Vital Signs Temp 97.3 F 09/21/20 04:00 Pulse 93 09/19/20 05:06 Resp 27 H 09/21/20 07:00 BP 148/88 H 09/21/20 04:00 Pulse Ox 89 L 09/21/20 07:00 Weight - Most Recent: 184.187 kg I&O - Last 24 Hours: Intake & Output 09/20/20 09/21/20 09/21/20 22:59 06:59 14:59 Intake Total 1407 1400 Output Total 2350 950 Balance -943 450 Lab Results Last 24 Hours: Laboratory Results - last 24 hr 09/20/20 09/20/20 09/21/20 Range/Units 12:35 18:25 05:23 WBC 8.63 (4.0-11.0) K/uL RBC 4.44 (4.30-5.90) M/uL Hgb 12.2 (12.0-16.0) g/dL Hct 38.7 (36.0-46.0) % MCV 87.2 (80.0-98.0) fL MCH 27.5 (27.0-32.0) pg MCHC 31.5 (31.0-37.0) g/dL RDW Std Deviation 46.1 (28.0-62.0) fl RDW Coeff of Sandor 15 (11.0-15.0) % Plt Count 360 (150-400) K/uL MPV 10.20 (7.40-12.00) fL Add Manual Diff YES Neutrophils % (Manual) 76 (48.0-80.0) % Band Neutrophils % 7 % Lymphocytes % (Manual) 10 L (16.0-40.0) % Monocytes % (Manual) 1 (0.0-15.0) % Metamyelocytes % 3 % Myelocytes % 3 % Nucleated RBC % 0.0 /100WBC Absolute Seg Neuts 6.6 H (1.4-5.7) Band Neutrophils # 0.6 Lymphocytes # (Manual) 0.9 (0.6-2.4) Monocytes # (Manual) 0.1 (0.0-0.8) Absolute Metamyelocyte 0.3 Absolute Myelocytes 0.3 Nucleated RBCs # 0 K/uL APTT (18.6-31.3) SEC Sodium (136-145) mmol/L Potassium (3.5-5.1) mmol/L Chloride (98-107) mmol/L Carbon Dioxide (21.0-32.0) mmol/L BUN (7.0-18.0) mg/dL Creatinine (0.6-1.0) mg/dL Est Cr Clr Drug Dosing mL/min Estimated GFR (MDRD) ml/min Glucose (74-106) mg/dL POC Glucose 111 H 110 (60-110) mg/dL Calcium (8.5-10.1) mg/dL Total Bilirubin (0.2-1.0) mg/dL AST (15-37) IU/L ALT (14-63) IU/L Alkaline Phosphatase (46-116) U/L Total Protein (6.4-8.2) g/dL Albumin (3.4-5.0) g/dL Globulin (2.6-4.0) g/dL Albumin/Globulin Ratio (0.9-1.6) 09/21/20 09/21/20 Range/Units 05:23 06:45 WBC (4.0-11.0) K/uL RBC (4.30-5.90) M/uL Hgb (12.0-16.0) g/dL Hct (36.0-46.0) % MCV (80.0-98.0) fL MCH (27.0-32.0) pg MCHC (31.0-37.0) g/dL RDW Std Deviation (28.0-62.0) fl RDW Coeff of Sandor (11.0-15.0) % Plt Count (150-400) K/uL MPV (7.40-12.00) fL Add Manual Diff Neutrophils % (Manual) (48.0-80.0) % Band Neutrophils % % Lymphocytes % (Manual) (16.0-40.0) % Monocytes % (Manual) (0.0-15.0) % Metamyelocytes % % Myelocytes % % Nucleated RBC % /100WBC Absolute Seg Neuts (1.4-5.7) Band Neutrophils # Lymphocytes # (Manual) (0.6-2.4) Monocytes # (Manual) (0.0-0.8) Absolute Metamyelocyte Absolute Myelocytes Nucleated RBCs # K/uL APTT 92.0 H (18.6-31.3) SEC Sodium 138 (136-145) mmol/L Potassium 5.0 (3.5-5.1) mmol/L Chloride 106 (98-107) mmol/L Carbon Dioxide 22.3 (21.0-32.0) mmol/L BUN 28 H (7.0-18.0) mg/dL Creatinine 1.3 H (0.6-1.0) mg/dL Est Cr Clr Drug Dosing 48.67 mL/min Estimated GFR (MDRD) 42.8 ml/min Glucose 170 H (74-106) mg/dL POC Glucose (60-110) mg/dL Calcium 8.9 (8.5-10.1) mg/dL Total Bilirubin 0.4 (0.2-1.0) mg/dL AST 39 H (15-37) IU/L ALT 52 (14-63) IU/L Alkaline Phosphatase 51 (46-116) U/L Total Protein 7.4 (6.4-8.2) g/dL Albumin 2.5 L (3.4-5.0) g/dL Globulin 4.9 H (2.6-4.0) g/dL Albumin/Globulin Ratio 0.5 L (0.9-1.6) Lucius Results Last 24 Hours: Microbiology 09/16/20 23:40 Aerobic Blood Culture - Preliminary Blood - Venous - Lab Draw NO GROWTH AFTER 4 DAYS Anaerobic Blood Culture - Preliminary NO GROWTH AFTER 4 DAYS 09/16/20 23:30 Aerobic Blood Culture - Preliminary Blood - Venous NO GROWTH AFTER 4 DAYS Anaerobic Blood Culture - Preliminary NO GROWTH AFTER 4 DAYS 09/15/20 19:23 Aerobic Blood Culture - Final Blood - Venous - Lab Draw NO GROWTH AFTER 5 DAYS Anaerobic Blood Culture - Final NO GROWTH AFTER 5 DAYS 09/15/20 19:15 Aerobic Blood Culture - Final Blood - Venous NO GROWTH AFTER 5 DAYS Anaerobic Blood Culture - Final NO GROWTH AFTER 5 DAYS Med Orders - Current: Current Medications Acetaminophen (Tylenol) 650 mg PO Q4H PRN PRN Reason: Pain (Mild 1-3)/fever Last Admin: 09/17/20 20:47 Dose: 650 mg Documented by: Albuterol/Ipratropium (Combivent Respimat) 0 gm INH Q4H PRN PRN Reason: Dyspnea Last Admin: 09/19/20 22:00 Dose: 1 puff Documented by: Benzonatate (Tessalon Perles) 200 mg PO TID PRN PRN Reason: Cough Last Admin: 09/20/20 11:21 Dose: 200 mg Documented by: Dexamethasone (Dexamethasone) 6 mg PO Q24H HELEN Last Admin: 09/20/20 21:44 Dose: 6 mg Documented by: Guaifenesin/Codeine Phosphate (Robitussin Ac) 10 ml PO Q6H PRN PRN Reason: Cough Last Admin: 09/20/20 18:08 Dose: 10 ml Documented by: Azithromycin 500 mg/ Sodium (Chloride) 250 mls @ 250 mls/hr IV Q24H [facility] Last Admin: 09/20/20 22:37 Dose: 250 mls/hr Documented by: Ceftriaxone Sodium/Dextrose (Rocephin In Dextrose,Iso-Osm 1 Gm/50 Ml) 50 mls @ 100 mls/hr IV Q24H [facility] Last Admin: 09/20/20 21:45 Dose: 100 mls/hr Documented by: Heparin Sodium/Sodium Chloride (Heparin 25,000 Units In 1/2 Ns 500 Ml) 500 mls @ 25.951 mls/hr IV TITRATE [facility]; Protocol Last Admin: 09/21/20 05:15 Dose: 13.1 units/kg/hr, 47.881 mls/hr Documented by: Nystatin (Nystop) 0 gm TOP TID [facility] Last Admin: 09/21/20 05:25 Dose: 1 applic Documented by: Pantoprazole Sodium (Protonix) 40 mg PO ACBREAKFAST [facility] Last Admin: 09/21/20 06:37 Dose: 40 mg Documented by: Discontinued Medications Acetaminophen (Tylenol Extra Strength) 1,000 mg PO ONETIME ONE Stop: 09/15/20 20:09 Last Admin: 09/15/20 20:15 Dose: 1,000 mg Documented by: Bumetanide (Bumex) 1 mg PO ONETIME ONE Stop: 09/18/20 14:11 Last Admin: 09/18/20 14:16 Dose: 1 mg Documented by: Bumetanide (Bumex) 1 mg PO ONETIME ONE Stop: 09/19/20 09:31 Last Admin: 09/19/20 10:18 Dose: 1 mg Documented by: Bumetanide (Bumex) 1 mg PO ONETIME ONE Stop: 09/20/20 09:25 Last Admin: 09/20/20 09:40 Dose: 1 mg Documented by: Dexamethasone (Decadron) 6 mg IVPUSH ONETIME ONE Stop: 09/15/20 19:31 Last Admin: 09/15/20 20:02 Dose: 6 mg Documented by: Enoxaparin Sodium (Lovenox) 40 mg SUBCUT Q12HR [facility]EN Last Admin: 09/15/20 23:17 Dose: 40 mg Documented by: Heparin Sodium (Porcine) (Heparin Sodium) 7,500 units IVPUSH .BOLUS ONE Stop: 09/16/20 05:01 Last Admin: 09/16/20 06:31 Dose: 7,500 units Documented by: Heparin Sodium (Porcine) (Heparin Sodium) 1,500 units IVPUSH .BOLUS ONE Stop: 09/16/20 11:44 Last Admin: 09/16/20 11:52 Dose: 1,500 units Documented by: Heparin Sodium (Porcine) (Heparin Sodium) 1,500 units IVPUSH BOLUS ONE Stop: 09/16/20 17:46 Last Admin: 09/16/20 17:53 Dose: 1,500 units Documented by: Heparin Sodium (Porcine) (Heparin Sodium) 1,500 units IVPUSH .BOLUS ONE Stop: 09/17/20 00:01 Last Admin: 09/17/20 00:06 Dose: 1,500 units Documented by: Remdesivir 200 mg/ Sodium (Chloride) 250 mls @ 250 mls/hr IV ONETIME ONE Stop: 09/15/20 19:30 Last Admin: 09/15/20 20:03 Dose: 250 mls/hr Documented by: Sodium Chloride (Normal Saline) 1,000 mls @ 125 mls/hr IV STAT ONE Stop: 09/16/20 04:08 Last Admin: 09/15/20 20:20 Dose: 125 mls/hr Documented by: Remdesivir 100 mg/ Sodium (Chloride) 100 mls @ 100 mls/hr IV Q24H HELEN Stop: 09/19/20 20:59 Last Infusion: 09/19/20 19:40 Dose: 100 mls/hr Documented by: Lorazepam (Ativan) 1 mg IVPUSH ONETIME ONE Stop: 09/15/20 20:18 Last Admin: 09/15/20 20:21 Dose: 1 mg Documented by: Lorazepam (Ativan) Confirm Administered Dose 2 mg .ROUTE .STK-MED ONE Stop: 09/15/20 20:19 Last Admin: 09/15/20 20:21 Dose: Not Given Documented by: Lorazepam (Ativan) 1 mg PO Q6H PRN PRN Reason: Anxiety - Exam Quality Assessment: Supplemental Oxygen General: Alert, Oriented HEENT: EOMI, Mucous Membr. Moist/[place] Neck: Supple Lungs: Other (coarse bs in right lung field; otherwise moving air well ) Cardiovascular: Regular Rate, Regular Rhythm GI/Abdominal Exam: Soft, Non-Tender Back Exam: Full Range of Motion Neurological: No New Focal Deficit Psy/Mental Status: Alert, Normal Mood Sepsis Event Note - Evaluation Sepsis Screening Result: No Definite Risk - Focused Exam Vital Signs: Vital Signs Temp Resp BP Pulse Ox Pulse Ox 09/21/20 07:00 27 H 89 L 09/21/20 06:00 26 H 89 L 09/21/20 05:00 30 H 91 L 91 L 09/21/20 04:00 97.3 F 24 H 148/88 H 93 L 09/21/20 03:00 25 H 93 L 09/21/20 02:00 25 H 91 L 09/21/20 01:00 27 H 91 L 09/21/20 00:00 97.5 F 19 141/91 H 89 L 09/20/20 23:00 28 H 93 L 09/20/20 22:00 24 H 91 L 09/20/20 21:00 12 89 L 09/20/20 20:00 21 H 133/66 92 L - Problem List & Annotations (1) COVID-19 SNOMED Code(s): 294594506 Code(s): U07.1 - COVID-19 Status: Acute Current Visit: Yes (2) Pneumonia due to COVID-19 virus SNOMED Code(s): 086669722938620170 Code(s): U07.1 - COVID-19; J12.82 - PNEUMONIA DUE TO CORONAVIRUS DISEASE 2019 Status: Acute Current Visit: Yes (3) Renal insufficiency SNOMED Code(s): 245455111, 945665068 Code(s): N28.9 - DISORDER OF KIDNEY AND URETER, UNSPECIFIED Status: Acute Current Visit: Yes (4) Persistent cough SNOMED Code(s): 237784050 Code(s): R05 - COUGH Status: Acute Current Visit: No - Problem List Review Problem List Initiated/Reviewed/Updated: Yes - My Orders Last 24 Hours: My Active Orders 09/20/20 11:10 Nystatin [Nystop] 0 gm TOP TID 09/22/20 05:11 CBC WITH AUTO DIFF [HEME] AM COMPREHENSIVE METABOLIC PN,CMP [CHEM] AM 09/23/20 05:11 CBC WITH AUTO DIFF [HEME] AM COMPREHENSIVE METABOLIC PN,CMP [CHEM] AM - Plan Plan:: 54 yo female admitted for acute hypoxic respiratory failure from COVID pneumonia and acute kidney injury Acute hypoxic respiratory failure: improving and is currently down to 2L NC COVID pneumonia: Treating with dexamethasone, completed remdesivir, Received 2 units of Convalescent plasma Can downgrade patient to General Med-surg floor since patient is no longer requiring high-flow o2+continue Heparin drip Since consolidation noted in right mid-lower lobe; continue Azithromycin/CTX for concerns for bacterial component as well BRI: creatinine 1.3; Hold Bumex today and recheck in following AM for improvement of BRI ; advise to continue to hydrate via PO elevated d-dimer: continue Heparin Drip, perfusion study intermediate, will consider CTA once creatinine improves and hydration status is nominal; since significant clinical improvement since admission; Continue PPI daily PO
[2020-09-21] MEDS: Codeine/guaiFENesin 10-100 MG/5 ML Syrup 5 ML Cup PO PRN ×2 (09:01→18:07)
--- NOTE | 2020-09-21 11:19 | PN ---
KARSTEN Physician - Brief Progress [id number]/29/2021 11:17[facility] [place] [place] - [place] [facility] - [place] ICUCHELLYJOVTIA Hewitt, COVID+Date of Service 09/21/2020 11:17HPI/Ev ents of Note eICU Progress [id number] admitted for respiratory failure and BRI. History obtained primari ly from review of EMR and discussion with bedside physician over telephone.Camera exam: Laying in bed . Vitals monitor reviewed.eICU Recommendations:Patient's oxygenation and respiratory status appear to have improved over the past days, currently on 2LPM NC saturating in the 90s per report.Bedside info debi me they intend to discharge patient today, and requested recommendations on anticoagulation, as w ell as any other changes to managementI suggest a discussion with patient regarding risks and benefit s of anticoagulation, and an approach consistent with patient's values and goals of therapy. Consider :Elevated d-dimer and COVID infection puts patient at heightened risk of VTE, sPESI score places mary ent in high risk category given degree of desaturation.V/Q scan was indeterminant (as anticipated giv en lung parenchymal abnormalities on CXR) - as such as long as benefits outweigh risks, suggest columba nuation of anticoagulation until VTE ruled out with CTA chest.If anticoagulation is elected to be con tinued - elevated BMI poses challenges for anticoagulation as an outpatient - without trending anti-f actor Xa assay would be uncertain as to efficacy of DOAC or lovenox.Accordingly suggest use of warfar in for anticoagulation, targeting INR of 2-3. Cessation of heparin drip prior to therapeutic INR may confer inadequate protection against thrombosis - accordingly suggest patient remain inpatient until INR is therapeutic.Given patient appears to still be recovering from BRI, reasonable to defer repeat CTA until a time when creatinine has recovered.Suggest continuation of antibiotics for a total of 7 d ays given continued oxygen requirements. Can consider procalcitonin to assist with de-escalation, not ing that an elevated level may be reflective of impaired GFR rather than ongoing infection.Continue d examethasone for a total of 10 days.When discharged, recommend close follow up with PCP for monitorin g of above issues.Thank you for allowing us to participate in the care of this patient.The above note transcribed with the assistance of dictation software. Please excuse any errors.Interventions Major- Respiratory failure - evaluation and managementElectronically Signed by: DERRICK EDWARDS) on 08/25 11:19
[2020-09-21] MEDS ORDERED: Warfarin 10 MG Tab PO SCH ×2 (12:00→14:00)
[2020-09-21] MEDS: Benzonatate 100 MG Cap PO PRN ×2 (14:30→21:38)
[2020-09-21] MEDS ORDERED: Heparin Sodium 5,000 Units/ML Vial IVPUSH ONE (19:42)
[2020-09-21] MEDS: Dexamethasone 4 MG Tab PO SCH (21:40)
[2020-09-21] MEDS: Azithromycin 500 MG in Sodium Chloride 0.9% 250 ML IV SCH (22:21)
[2020-09-22] MEDS: Pantoprazole 40 MG Tab.CR PO SCH (06:42)
[2020-09-22] MEDS: Nystatin Topical Powder 15 GM Bottle TOP SCH ×3 (06:42→21:57)
[2020-09-22 07:19] LABS: CARBON DIOXIDE,CO2 26.6 mmol/L (21.0-32.0); POTASSIUM,K 5.2 mmol/L (3.5-5.1)
[2020-09-22] MEDS: Heparin Sodium/0.45% NaCl 500 ML IV SCH ×2 (07:20→18:34)
[2020-09-22] MEDS ORDERED: 50% Dextrose in Water 50 ML Syringe IV PRN (07:46)
[2020-09-22] MEDS ORDERED: Glucagon,Human Recombinant 1 MG Vial IM PRN (07:46)
--- NOTE | 2020-09-22 10:29 | PCM.PN ---
- General Info Date of Service: 09/22/20 Subjective Update: Bedside : no new acute complaints. - Review of Systems General: Reports: No Symptoms HEENT: Reports: No Symptoms Pulmonary: Reports: Cough. Denies: Shortness of Breath, Wheezing Cardiovascular: Reports: Dyspnea on Exertion. Denies: Chest Pain, Palpitations Gastrointestinal: Reports: No Symptoms Genitourinary: Reports: No Symptoms Musculoskeletal: Reports: No Symptoms Neurological: Denies: Headache - Patient Data Vitals - Most Recent: Last Vital Signs Temp 97.0 F 09/22/20 09:33 Pulse 77 09/22/20 09:33 Resp 18 09/22/20 09:33 BP 140/74 09/22/20 09:33 Pulse Ox 91 L 09/22/20 09:33 Weight - Most Recent: 182.344 kg I&O - Last 24 Hours: Intake & Output 09/21/20 09/22/20 09/22/20 22:59 06:59 14:59 Intake Total 1354 490 700 Output Total 1400 400 Balance -46 90 700 Lab Results Last 24 Hours: Laboratory Results - last 24 hr 09/21/20 09/21/20 09/21/20 Range/Units 12:01 13:10 13:10 WBC (4.0-11.0) K/uL RBC (4.30-5.90) M/uL Hgb (12.0-16.0) g/dL Hct (36.0-46.0) % MCV (80.0-98.0) fL MCH (27.0-32.0) pg MCHC (31.0-37.0) g/dL RDW Std Deviation (28.0-62.0) fl RDW Coeff of Sandor (11.0-15.0) % Plt Count (150-400) K/uL MPV (7.40-12.00) fL Add Manual Diff Neutrophils % (Manual) (48.0-80.0) % Band Neutrophils % % Lymphocytes % (Manual) (16.0-40.0) % Monocytes % (Manual) (0.0-15.0) % Metamyelocytes % % Myelocytes % % Nucleated RBC % /100WBC Absolute Seg Neuts (1.4-5.7) Band Neutrophils # Lymphocytes # (Manual) (0.6-2.4) Monocytes # (Manual) (0.0-0.8) Absolute Metamyelocyte Absolute Myelocytes Nucleated RBCs # K/uL INR 1.14 APTT 51.7 H (18.6-31.3) SEC Sodium (136-145) mmol/L Potassium (3.5-5.1) mmol/L Chloride (98-107) mmol/L Carbon Dioxide (21.0-32.0) mmol/L BUN (7.0-18.0) mg/dL Creatinine (0.6-1.0) mg/dL Est Cr Clr Drug Dosing mL/min Estimated GFR (MDRD) ml/min Glucose (74-106) mg/dL POC Glucose 166 H (60-110) mg/dL Calcium (8.5-10.1) mg/dL Total Bilirubin (0.2-1.0) mg/dL AST (15-37) IU/L ALT (14-63) IU/L Alkaline Phosphatase (46-116) U/L Total Protein (6.4-8.2) g/dL Albumin (3.4-5.0) g/dL Globulin (2.6-4.0) g/dL Albumin/Globulin Ratio (0.9-1.6) 09/21/20 09/21/20 09/22/20 Range/Units 18:33 18:52 00:48 WBC (4.0-11.0) K/uL RBC (4.30-5.90) M/uL Hgb (12.0-16.0) g/dL Hct (36.0-46.0) % MCV (80.0-98.0) fL MCH (27.0-32.0) pg MCHC (31.0-37.0) g/dL RDW Std Deviation (28.0-62.0) fl RDW Coeff of Sandor (11.0-15.0) % Plt Count (150-400) K/uL MPV (7.40-12.00) fL Add Manual Diff Neutrophils % (Manual) (48.0-80.0) % Band Neutrophils % % Lymphocytes % (Manual) (16.0-40.0) % Monocytes % (Manual) (0.0-15.0) % Metamyelocytes % % Myelocytes % % Nucleated RBC % /100WBC Absolute Seg Neuts (1.4-5.7) Band Neutrophils # Lymphocytes # (Manual) (0.6-2.4) Monocytes # (Manual) (0.0-0.8) Absolute Metamyelocyte Absolute Myelocytes Nucleated RBCs # K/uL INR APTT 47.7 H 66.7 H (18.6-31.3) SEC Sodium (136-145) mmol/L Potassium (3.5-5.1) mmol/L Chloride (98-107) mmol/L Carbon Dioxide (21.0-32.0) mmol/L BUN (7.0-18.0) mg/dL Creatinine (0.6-1.0) mg/dL Est Cr Clr Drug Dosing mL/min Estimated GFR (MDRD) ml/min Glucose (74-106) mg/dL POC Glucose 109 (60-110) mg/dL Calcium (8.5-10.1) mg/dL Total Bilirubin (0.2-1.0) mg/dL AST (15-37) IU/L ALT (14-63) IU/L Alkaline Phosphatase (46-116) U/L Total Protein (6.4-8.2) g/dL Albumin (3.4-5.0) g/dL Globulin (2.6-4.0) g/dL Albumin/Globulin Ratio (0.9-1.6) 09/22/20 09/22/20 09/22/20 Range/Units 06:52 06:52 06:52 WBC 8.77 (4.0-11.0) K/uL RBC 4.29 L (4.30-5.90) M/uL Hgb 11.8 L (12.0-16.0) g/dL Hct 37.6 (36.0-46.0) % MCV 87.6 (80.0-98.0) fL MCH 27.5 (27.0-32.0) pg MCHC 31.4 (31.0-37.0) g/dL RDW Std Deviation 46.4 (28.0-62.0) fl RDW Coeff of Sandor 15 (11.0-15.0) % Plt Count 370 (150-400) K/uL MPV 9.60 (7.40-12.00) fL Add Manual Diff YES Neutrophils % (Manual) 74 (48.0-80.0) % Band Neutrophils % 9 % Lymphocytes % (Manual) 9 L (16.0-40.0) % Monocytes % (Manual) 6 (0.0-15.0) % Metamyelocytes % 1 % Myelocytes % 1 % Nucleated RBC % 0.0 /100WBC Absolute Seg Neuts 6.5 H (1.4-5.7) Band Neutrophils # 0.8 Lymphocytes # (Manual) 0.8 (0.6-2.4) Monocytes # (Manual) 0.5 (0.0-0.8) Absolute Metamyelocyte 0.1 Absolute Myelocytes 0.1 Nucleated RBCs # 0 K/uL INR 1.28 APTT (18.6-31.3) SEC Sodium 141 (136-145) mmol/L Potassium 5.2 H (3.5-5.1) mmol/L Chloride 106 (98-107) mmol/L Carbon Dioxide 26.6 (21.0-32.0) mmol/L BUN 24 H (7.0-18.0) mg/dL Creatinine 1.3 H (0.6-1.0) mg/dL Est Cr Clr Drug Dosing 48.67 mL/min Estimated GFR (MDRD) 42.8 ml/min Glucose 170 H (74-106) mg/dL POC Glucose (60-110) mg/dL Calcium 9.0 (8.5-10.1) mg/dL Total Bilirubin 0.4 (0.2-1.0) mg/dL AST 39 H (15-37) IU/L ALT 54 (14-63) IU/L Alkaline Phosphatase 48 (46-116) U/L Total Protein 7.0 (6.4-8.2) g/dL Albumin 2.4 L (3.4-5.0) g/dL Globulin 4.6 H (2.6-4.0) g/dL Albumin/Globulin Ratio 0.5 L (0.9-1.6) 09/22/20 09/22/20 Range/Units 06:52 06:54 WBC (4.0-11.0) K/uL RBC (4.30-5.90) M/uL Hgb (12.0-16.0) g/dL Hct (36.0-46.0) % MCV (80.0-98.0) fL MCH (27.0-32.0) pg MCHC (31.0-37.0) g/dL RDW Std Deviation (28.0-62.0) fl RDW Coeff of Sandor (11.0-15.0) % Plt Count (150-400) K/uL MPV (7.40-12.00) fL Add Manual Diff Neutrophils % (Manual) (48.0-80.0) % Band Neutrophils % % Lymphocytes % (Manual) (16.0-40.0) % Monocytes % (Manual) (0.0-15.0) % Metamyelocytes % % Myelocytes % % Nucleated RBC % /100WBC Absolute Seg Neuts (1.4-5.7) Band Neutrophils # Lymphocytes # (Manual) (0.6-2.4) Monocytes # (Manual) (0.0-0.8) Absolute Metamyelocyte Absolute Myelocytes Nucleated RBCs # K/uL INR APTT 69.3 H (18.6-31.3) SEC Sodium (136-145) mmol/L Potassium (3.5-5.1) mmol/L Chloride (98-107) mmol/L Carbon Dioxide (21.0-32.0) mmol/L BUN (7.0-18.0) mg/dL Creatinine (0.6-1.0) mg/dL Est Cr Clr Drug Dosing mL/min Estimated GFR (MDRD) ml/min Glucose (74-106) mg/dL POC Glucose 153 H (60-110) mg/dL Calcium (8.5-10.1) mg/dL Total Bilirubin (0.2-1.0) mg/dL AST (15-37) IU/L ALT (14-63) IU/L Alkaline Phosphatase (46-116) U/L Total Protein (6.4-8.2) g/dL Albumin (3.4-5.0) g/dL Globulin (2.6-4.0) g/dL Albumin/Globulin Ratio (0.9-1.6) Lucius Results Last 24 Hours: Microbiology 09/16/20 23:40 Aerobic Blood Culture - Final Blood - Venous - Lab Draw NO GROWTH AFTER 5 DAYS Anaerobic Blood Culture - Final NO GROWTH AFTER 5 DAYS 09/16/20 23:30 Aerobic Blood Culture - Final Blood - Venous NO GROWTH AFTER 5 DAYS Anaerobic Blood Culture - Final NO GROWTH AFTER 5 DAYS Med Orders - Current: Current Medications Acetaminophen (Tylenol) 650 mg PO Q4H PRN PRN Reason: Pain (Mild 1-3)/fever Last Admin: 09/17/20 20:47 Dose: 650 mg Documented by: Albuterol/Ipratropium (Combivent Respimat) 0 gm INH Q4H PRN PRN Reason: Dyspnea Last Admin: 09/19/20 22:00 Dose: 1 puff Documented by: Benzonatate (Tessalon Perles) 200 mg PO TID PRN PRN Reason: Cough Last Admin: 09/21/20 21:38 Dose: 200 mg Documented by: Dexamethasone (Dexamethasone) 6 mg PO Q24H [facility] Last Admin: 09/21/20 21:40 Dose: 6 mg Documented by: Dextrose/Water (Dextrose 50% In Water) 50 ml IV ASDIRECTED PRN PRN Reason: Hypoglycemia Glucagon (Glucagen) 1 mg IM ASDIRECTED PRN PRN Reason: Hypoglycemia Guaifenesin/Codeine Phosphate (Robitussin Ac) 10 ml PO Q6H PRN PRN Reason: Cough Last Admin: 09/21/20 18:07 Dose: 10 ml Documented by: Azithromycin 500 mg/ Sodium (Chloride) 250 mls @ 250 mls/hr IV Q24H [facility] Last Admin: 09/21/20 22:21 Dose: 250 mls/hr Documented by: Ceftriaxone Sodium/Dextrose (Rocephin In Dextrose,Iso-Osm 1 Gm/50 Ml) 50 mls @ 100 mls/hr IV Q24H [facility] Last Admin: 09/21/20 21:45 Dose: 100 mls/hr Documented by: Heparin Sodium/Sodium Chloride (Heparin 25,000 Units In 1/2 Ns 500 Ml) 500 mls @ 25.585 mls/hr IV TITRATE [facility]; Protocol Last Admin: 09/22/20 07:20 Dose: 12.1 units/kg/hr, 44.226 mls/hr Documented by: Insulin Aspart (Novolog) [address] [facility]; Protocol Nystatin (Nystop) 0 gm TOP TID [facility] Last Admin: 09/22/20 06:42 Dose: 1 applic Documented by: Pantoprazole Sodium (Protonix) [address] [facility] Last Admin: 09/22/20 06:42 Dose: 40 mg Documented by: Warfarin Sodium (Coumadin Ask) 1 each PO DAILY@1400 [facility] Last Admin: 09/21/20 16:36 Dose: Not Given Documented by: Warfarin Sodium (Coumadin) 10 mg PO 09/22/20@1400 [facility] Stop: 09/22/20 14:01 Discontinued Medications Acetaminophen (Tylenol Extra Strength) 1,000 mg PO ONETIME ONE Stop: 09/15/20 20:09 Last Admin: 09/15/20 20:15 Dose: 1,000 mg Documented by: Bumetanide (Bumex) 1 mg PO ONETIME ONE Stop: 09/18/20 14:11 Last Admin: 09/18/20 14:16 Dose: 1 mg Documented by: Bumetanide (Bumex) 1 mg PO ONETIME ONE Stop: 09/19/20 09:31 Last Admin: 09/19/20 10:18 Dose: 1 mg Documented by: Bumetanide (Bumex) 1 mg PO ONETIME ONE Stop: 09/20/20 09:25 Last Admin: 09/20/20 09:40 Dose: 1 mg Documented by: Dexamethasone (Decadron) 6 mg IVPUSH ONETIME ONE Stop: 09/15/20 19:31 Last Admin: 09/15/20 20:02 Dose: 6 mg Documented by: Enoxaparin Sodium (Lovenox) [address] [facility] Last Admin: 09/15/20 23:17 Dose: 40 mg Documented by: Heparin Sodium (Porcine) (Heparin Sodium) 7,500 units IVPUSH .BOLUS ONE Stop: 09/16/20 05:01 Last Admin: 09/16/20 06:31 Dose: 7,500 units Documented by: Heparin Sodium (Porcine) (Heparin Sodium) 1,500 units IVPUSH .BOLUS ONE Stop: 09/16/20 11:44 Last Admin: 09/16/20 11:52 Dose: 1,500 units Documented by: Heparin Sodium (Porcine) (Heparin Sodium) 1,500 units IVPUSH BOLUS ONE Stop: 09/16/20 17:46 Last Admin: 09/16/20 17:53 Dose: 1,500 units Documented by: Heparin Sodium (Porcine) (Heparin Sodium) 1,500 units IVPUSH .BOLUS ONE Stop: 09/17/20 00:01 Last Admin: 09/17/20 00:06 Dose: 1,500 units Documented by: Heparin Sodium (Porcine) (Heparin Sodium) 1,500 units IVPUSH .BOLUS ONE Stop: 09/21/20 19:43 Last Admin: 09/21/20 19:54 Dose: 1,500 units Documented by: Remdesivir 200 mg/ Sodium (Chloride) 250 mls @ 250 mls/hr IV ONETIME ONE Stop: 09/15/20 19:30 Last Admin: 09/15/20 20:03 Dose: 250 mls/hr Documented by: Sodium Chloride (Normal Saline) 1,000 mls @ 125 mls/hr IV STAT ONE Stop: 09/16/20 04:08 Last Admin: 09/15/20 20:20 Dose: 125 mls/hr Documented by: Remdesivir 100 mg/ Sodium (Chloride) 100 mls @ 100 mls/hr IV Q24H [facility] Stop: 09/19/20 20:59 Last Infusion: 09/19/20 19:40 Dose: 100 mls/hr Documented by: Lorazepam (Ativan) 1 mg IVPUSH ONETIME ONE Stop: 09/15/20 20:18 Last Admin: 09/15/20 20:21 Dose: 1 mg Documented by: Lorazepam (Ativan) Confirm Administered Dose 2 mg .ROUTE .STK-MED ONE Stop: 09/15/20 20:19 Last Admin: 09/15/20 20:21 Dose: Not Given Documented by: Lorazepam (Ativan) 1 mg PO Q6H PRN PRN Reason: Anxiety Warfarin Sodium (Coumadin) 10 mg PO 09/21/20@1200 [facility] Stop: 09/21/20 12:01 Last Admin: 09/21/20 13:47 Dose: Not Given Documented by: Warfarin Sodium (Coumadin) 10 mg PO 09/21/20@1400 [facility] Stop: 09/21/20 14:01 Last Admin: 09/21/20 13:55 Dose: 10 mg Documented by: - Exam Quality Assessment: Supplemental Oxygen General: Alert, Oriented, Cooperative HEENT: EOMI Neck: Supple Lungs: Other (right lung field crackles; moving aiur well w. minimal wheeze b/l ) Cardiovascular: Regular Rate, Regular Rhythm GI/Abdominal Exam: Soft, Non-Tender Extremities: Normal Inspection Skin: Warm Neurological: No New Focal Deficit Psy/Mental Status: Alert, Normal Affect, Normal Mood Sepsis Event Note - Evaluation Sepsis Screening Result: No Definite Risk - Focused Exam Vital Signs: Vital Signs Temp Pulse Resp BP Pulse Ox Pulse Ox 09/22/20 09:33 97.0 F 77 18 140/74 91 L 09/22/20 04:00 96.1 F L 16 145/88 H 95 95 09/21/20 23:32 97 F 16 114/63 93 L - Problem List & Annotations (1) COVID-19 SNOMED Code(s): 033077489 Code(s): U07.1 - COVID-19 Status: Acute Current Visit: Yes (2) Pneumonia due to COVID-19 virus SNOMED Code(s): 970892787320665527 Code(s): U07.1 - COVID-19; J12.82 - PNEUMONIA DUE TO CORONAVIRUS DISEASE 2018 Status: Acute Current Visit: Yes (3) Renal insufficiency SNOMED Code(s): 198106918, 697990965 Code(s): N28.9 - DISORDER OF KIDNEY AND URETER, UNSPECIFIED Status: Acute Current Visit: Yes (4) Persistent cough SNOMED Code(s): 462894878 Code(s): R05 - COUGH Status: Acute Current Visit: No - Problem List Review Problem List Initiated/Reviewed/Updated: Yes - My Orders Last 24 Hours: My Active Orders 09/21/20 10:59 Transfer Patient (Change bed) [ADT] Routine 09/21/20 11:45 Warfarin Dosing [Coumadin Ask] 1 each PO DAILY@1400 09/21/20 12:00 Vital Signs [RC] Q4H 09/22/20 07:46 Dextrose 50% in Water 50 ml IV ASDIRECTED PRN Glucagon,Human Recombinant [GlucaGen] 1 mg IM ASDIRECTED PRN 09/22/20 11:30 Insulin Aspart [NovoLOG] See Protocol SUBCUT TIDAC 09/22/20 12:45 aPTT [PTT,PARTIAL THROMBOPLSTIN TIME] [COAG] Q6H 09/22/20 14:00 Warfarin [Coumadin] 10 mg PO 09/22/20@1400 09/22/20 18:45 aPTT [PTT,PARTIAL THROMBOPLSTIN TIME] [COAG] Q6H 09/23/20 05:11 CBC WITH AUTO DIFF [HEME] AM CBC WITH AUTO DIFF [HEME] AM COMPREHENSIVE METABOLIC PN,CMP [CHEM] AM COMPREHENSIVE METABOLIC PN,CMP [CHEM] AM INR,PT,PROTHROMBIN TIME [COAG] AM 09/24/20 05:11 CBC WITH AUTO DIFF [HEME] AM COMPREHENSIVE METABOLIC PN,CMP [CHEM] AM INR,PT,PROTHROMBIN TIME [COAG] AM - Plan Plan:: 54 yo female admitted for acute hypoxic respiratory failure from COVID pneumonia and acute kidney injury Acute hypoxic respiratory failure: improving and is currently down to 2L NC COVID pneumonia: Treating with dexamethasone, completed remdesivir, Received 2 units of Convalescent plasma continue Heparin drip; started pt on Warfarin with goal INR of 2-3.0; Since consolidation noted in right mid-lower lobe; continue Azithromycin/CTX for concerns for bacterial component as well BRI: creatinine 1.3; Hold Bumex today and recheck in following AM for improvement of BRI ; advise to continue to hydrate via PO elevated d-dimer: continue Heparin Drip, perfusion study intermediate, will consider CTA once creatinine improves and hydration status is nominal; since significant clinical improvement since admission patient is requesting discharge. INR not currently at therapeutic level however ; pt may require Warfarin until CTA to r.o PE (may possibly be in outpatient setting) Continue PPI daily PO
[2020-09-22] MEDS: Insulin Aspart 100 Units/ML 3 ML Pen SUBCUT SCH ×2 (11:18→17:54)
[2020-09-22] MEDS ORDERED: Warfarin 10 MG Tab PO SCH (14:00)
[2020-09-22] MEDS: Dexamethasone 4 MG Tab PO SCH (21:57)
[2020-09-22] MEDS: Benzonatate 100 MG Cap PO PRN (21:58)
[2020-09-22] MEDS: Azithromycin 500 MG in Sodium Chloride 0.9% 250 ML IV SCH (22:50)
[2020-09-23] MEDS: Pantoprazole 40 MG Tab.CR PO SCH (06:50)
[2020-09-23] MEDS: Nystatin Topical Powder 15 GM Bottle TOP SCH ×3 (06:51→21:53)
[2020-09-23] MEDS: Insulin Aspart 100 Units/ML 3 ML Pen SUBCUT SCH ×3 (06:51→17:38)
[2020-09-23] MEDS: Heparin Sodium/0.45% NaCl 500 ML IV SCH ×2 (08:38→22:22)
[2020-09-23 09:34] LABS: CARBON DIOXIDE,CO2 27.7 mmol/L (21.0-32.0)
[2020-09-23] MEDS ORDERED: Heparin Sodium 5,000 Units/ML Vial IVPUSH ONE (10:04)
--- NOTE | 2020-09-23 10:16 | PCM.PN ---
- General Info Date of Service: 09/23/20 Admission Dx/Problem (Free Text): Admission Diagnosis/Problem Admission Diagnosis/Problem Respiratory failure with hypoxia Subjective Update: Bedside : no new acute complaints, off oxygen while resting, no chest pain, - Review of Systems General: Denies: Fever, Weakness Pulmonary: Denies: Shortness of Breath, Pleuritic Chest Pain Cardiovascular: Reports: Dyspnea on Exertion. Denies: Chest Pain, Palpitations Gastrointestinal: Denies: Abdominal Pain, Constipation Genitourinary: Denies: Dysuria, Frequency, Burning Musculoskeletal: Denies: Neck Pain, Shoulder Pain, Arm Pain Neurological: Denies: Confusion, Dizziness, Headache - Patient Data Vitals - Most Recent: Last Vital Signs Temp 36.3 C 09/23/20 08:00 Pulse 74 09/23/20 08:00 Resp 20 09/23/20 08:00 BP 161/94 H 09/23/20 08:00 Pulse Ox 88 L 09/23/20 08:00 Weight - Most Recent: 182.344 kg I&O - Last 24 Hours: Intake & Output 09/22/20 09/23/20 09/23/20 22:59 06:59 14:59 Intake Total 750 900 Output Total 800 1200 Balance -50 -300 Lab Results Last 24 Hours: Laboratory Results - last 24 hr 09/22/20 09/22/20 09/22/20 Range/Units 11:14 12:55 17:50 WBC (4.0-11.0) K/uL RBC (4.30-5.90) M/uL Hgb (12.0-16.0) g/dL Hct (36.0-46.0) % MCV (80.0-98.0) fL MCH (27.0-32.0) pg MCHC (31.0-37.0) g/dL RDW Std Deviation (28.0-62.0) fl RDW Coeff of Sandor (11.0-15.0) % Plt Count (150-400) K/uL MPV (7.40-12.00) fL Add Manual Diff Neutrophils % (Manual) (48.0-80.0) % Band Neutrophils % % Lymphocytes % (Manual) (16.0-40.0) % Monocytes % (Manual) (0.0-15.0) % Metamyelocytes % % Nucleated RBC % /100WBC Absolute Seg Neuts (1.4-5.7) Band Neutrophils # Lymphocytes # (Manual) (0.6-2.4) Monocytes # (Manual) (0.0-0.8) Absolute Metamyelocyte Nucleated RBCs # K/uL INR APTT 62.0 H (18.6-31.3) SEC Sodium (136-145) mmol/L Potassium (3.5-5.1) mmol/L Chloride (98-107) mmol/L Carbon Dioxide (21.0-32.0) mmol/L BUN (7.0-18.0) mg/dL Creatinine (0.6-1.0) mg/dL Est Cr Clr Drug Dosing mL/min Estimated GFR (MDRD) ml/min Glucose (74-106) mg/dL POC Glucose 146 H 118 H (60-110) mg/dL Calcium (8.5-10.1) mg/dL Total Bilirubin (0.2-1.0) mg/dL AST (15-37) IU/L ALT (14-63) IU/L Alkaline Phosphatase (46-116) U/L Total Protein (6.4-8.2) g/dL Albumin (3.4-5.0) g/dL Globulin (2.6-4.0) g/dL Albumin/Globulin Ratio (0.9-1.6) 09/22/20 09/23/20 09/23/20 Range/Units 18:50 00:55 09:03 WBC 9.74 (4.0-11.0) K/uL RBC 4.49 (4.30-5.90) M/uL Hgb 12.3 (12.0-16.0) g/dL Hct 39.3 (36.0-46.0) % MCV 87.5 (80.0-98.0) fL MCH 27.4 (27.0-32.0) pg MCHC 31.3 (31.0-37.0) g/dL RDW Std Deviation 46.3 (28.0-62.0) fl RDW Coeff of Sandor 15 (11.0-15.0) % Plt Count 381 (150-400) K/uL MPV 9.70 (7.40-12.00) fL Add Manual Diff YES Neutrophils % (Manual) 64 (48.0-80.0) % Band Neutrophils % 7 % Lymphocytes % (Manual) 20 (16.0-40.0) % Monocytes % (Manual) 8 (0.0-15.0) % Metamyelocytes % 1 % Nucleated RBC % 0.0 /100WBC Absolute Seg Neuts 6.2 H (1.4-5.7) Band Neutrophils # 0.7 Lymphocytes # (Manual) 1.9 (0.6-2.4) Monocytes # (Manual) 0.8 (0.0-0.8) Absolute Metamyelocyte 0.1 Nucleated RBCs # 0 K/uL INR APTT 73.0 H 75.9 H (18.6-31.3) SEC Sodium (136-145) mmol/L Potassium (3.5-5.1) mmol/L Chloride (98-107) mmol/L Carbon Dioxide (21.0-32.0) mmol/L BUN (7.0-18.0) mg/dL Creatinine (0.6-1.0) mg/dL Est Cr Clr Drug Dosing mL/min Estimated GFR (MDRD) ml/min Glucose (74-106) mg/dL POC Glucose (60-110) mg/dL Calcium (8.5-10.1) mg/dL Total Bilirubin (0.2-1.0) mg/dL AST (15-37) IU/L ALT (14-63) IU/L Alkaline Phosphatase (46-116) U/L Total Protein (6.4-8.2) g/dL Albumin (3.4-5.0) g/dL Globulin (2.6-4.0) g/dL Albumin/Globulin Ratio (0.9-1.6) 09/23/20 09/23/20 09/23/20 Range/Units 09:03 09:03 09:03 WBC (4.0-11.0) K/uL RBC (4.30-5.90) M/uL Hgb (12.0-16.0) g/dL Hct (36.0-46.0) % MCV (80.0-98.0) fL MCH (27.0-32.0) pg MCHC (31.0-37.0) g/dL RDW Std Deviation (28.0-62.0) fl RDW Coeff of Sandor (11.0-15.0) % Plt Count (150-400) K/uL MPV (7.40-12.00) fL Add Manual Diff Neutrophils % (Manual) (48.0-80.0) % Band Neutrophils % % Lymphocytes % (Manual) (16.0-40.0) % Monocytes % (Manual) (0.0-15.0) % Metamyelocytes % % Nucleated RBC % /100WBC Absolute Seg Neuts (1.4-5.7) Band Neutrophils # Lymphocytes # (Manual) (0.6-2.4) Monocytes # (Manual) (0.0-0.8) Absolute Metamyelocyte Nucleated RBCs # K/uL INR 1.95 APTT 44.3 H (18.6-31.3) SEC Sodium 140 (136-145) mmol/L Potassium 5.0 (3.5-5.1) mmol/L Chloride 105 (98-107) mmol/L Carbon Dioxide 27.7 (21.0-32.0) mmol/L BUN 22 H (7.0-18.0) mg/dL Creatinine 1.4 H (0.6-1.0) mg/dL Est Cr Clr Drug Dosing 45.19 mL/min Estimated GFR (MDRD) 39.3 ml/min Glucose 145 H (74-106) mg/dL POC Glucose (60-110) mg/dL Calcium 9.0 (8.5-10.1) mg/dL Total Bilirubin 0.5 (0.2-1.0) mg/dL AST 26 (15-37) IU/L ALT 50 (14-63) IU/L Alkaline Phosphatase 50 (46-116) U/L Total Protein 7.1 (6.4-8.2) g/dL Albumin 2.6 L (3.4-5.0) g/dL Globulin 4.5 H (2.6-4.0) g/dL Albumin/Globulin Ratio 0.6 L (0.9-1.6) Med Orders - Current: Current Medications Acetaminophen (Tylenol) 650 mg PO Q4H PRN PRN Reason: Pain (Mild 1-3)/fever Last Admin: 09/17/20 20:47 Dose: 650 mg Documented by: Albuterol/Ipratropium (Combivent Respimat) 0 gm INH Q4H PRN PRN Reason: Dyspnea Last Admin: 09/19/20 22:00 Dose: 1 puff Documented by: Benzonatate (Tessalon Perles) 200 mg PO TID PRN PRN Reason: Cough Last Admin: 09/22/20 21:58 Dose: 200 mg Documented by: Dexamethasone (Dexamethasone) 6 mg PO Q24H [facility] Last Admin: 09/22/20 21:57 Dose: 6 mg Documented by: Dextrose/Water (Dextrose 50% In Water) 50 ml IV ASDIRECTED PRN PRN Reason: Hypoglycemia Glucagon (Glucagen) 1 mg IM ASDIRECTED PRN PRN Reason: Hypoglycemia Guaifenesin/Codeine Phosphate (Robitussin Ac) 10 ml PO Q6H PRN PRN Reason: Cough Last Admin: 09/21/20 18:07 Dose: 10 ml Documented by: Azithromycin 500 mg/ Sodium (Chloride) 250 mls @ 250 mls/hr IV Q24H [facility] Last Admin: 09/22/20 22:50 Dose: 250 mls/hr Documented by: Ceftriaxone Sodium/Dextrose (Rocephin In Dextrose,Iso-Osm 1 Gm/50 Ml) 50 mls @ 100 mls/hr IV Q24H [facility] Last Admin: 09/22/20 21:58 Dose: 100 mls/hr Documented by: Heparin Sodium/Sodium Chloride (Heparin 25,000 Units In 1/2 Ns 500 Ml) 500 mls @ 25.585 mls/hr IV TITRATE [facility]; Protocol Last Admin: 09/23/20 08:38 Dose: 8.1 units/kg/hr, 29.606 mls/hr Documented by: Insulin Aspart (Novolog) 0 unit SUBCUT TIDAC [facility]; Protocol Last Admin: 09/23/20 06:51 Dose: Not Given Documented by: Nystatin (Nystop) 0 gm TOP TID [facility] Last Admin: 09/23/20 06:51 Dose: Not Given Documented by: Pantoprazole Sodium (Protonix) 40 mg PO ACBREAKFAST [facility] Last Admin: 09/23/20 06:50 Dose: 40 mg Documented by: Warfarin Sodium (Coumadin Ask) 1 each PO DAILY@1400 [facility] Last Admin: 09/22/20 14:37 Dose: Not Given Documented by: Warfarin Sodium (Coumadin) 5 mg PO 09/23/20@1400 [facility] Stop: 09/23/20 15:00 Discontinued Medications Acetaminophen (Tylenol Extra Strength) 1,000 mg PO ONETIME ONE Stop: 09/15/20 20:09 Last Admin: 09/15/20 20:15 Dose: 1,000 mg Documented by: Bumetanide (Bumex) 1 mg PO ONETIME ONE Stop: 09/18/20 14:11 Last Admin: 09/18/20 14:16 Dose: 1 mg Documented by: Bumetanide (Bumex) 1 mg PO ONETIME ONE Stop: 09/19/20 09:31 Last Admin: 09/19/20 10:18 Dose: 1 mg Documented by: Bumetanide (Bumex) 1 mg PO ONETIME ONE Stop: 09/20/20 09:25 Last Admin: 09/20/20 09:40 Dose: 1 mg Documented by: Dexamethasone (Decadron) 6 mg IVPUSH ONETIME ONE Stop: 09/15/20 19:31 Last Admin: 09/15/20 20:02 Dose: 6 mg Documented by: Enoxaparin Sodium (Lovenox) 40 mg SUBCUT Q12HR [facility] Last Admin: 09/15/20 23:17 Dose: 40 mg Documented by: Heparin Sodium (Porcine) (Heparin Sodium) 7,500 units IVPUSH .BOLUS ONE Stop: 09/16/20 05:01 Last Admin: 09/16/20 06:31 Dose: 7,500 units Documented by: Heparin Sodium (Porcine) (Heparin Sodium) 1,500 units IVPUSH .BOLUS ONE Stop: 09/16/20 11:44 Last Admin: 09/16/20 11:52 Dose: 1,500 units Documented by: Heparin Sodium (Porcine) (Heparin Sodium) 1,500 units IVPUSH BOLUS ONE Stop: 09/16/20 17:46 Last Admin: 09/16/20 17:53 Dose: 1,500 units Documented by: Heparin Sodium (Porcine) (Heparin Sodium) 1,500 units IVPUSH .BOLUS ONE Stop: 09/17/20 00:01 Last Admin: 09/17/20 00:06 Dose: 1,500 units Documented by: Heparin Sodium (Porcine) (Heparin Sodium) 1,500 units IVPUSH .BOLUS ONE Stop: 09/21/20 19:43 Last Admin: 09/21/20 19:54 Dose: 1,500 units Documented by: Heparin Sodium (Porcine) (Heparin Sodium) 1,500 units IVPUSH .BOLUS ONE Stop: 09/23/20 10:05 Remdesivir 200 mg/ Sodium (Chloride) 250 mls @ 250 mls/hr IV ONETIME ONE Stop: 09/15/20 19:30 Last Admin: 09/15/20 20:03 Dose: 250 mls/hr Documented by: Sodium Chloride (Normal Saline) 1,000 mls @ 125 mls/hr IV STAT ONE Stop: 09/16/20 04:08 Last Admin: 09/15/20 20:20 Dose: 125 mls/hr Documented by: Remdesivir 100 mg/ Sodium (Chloride) 100 mls @ 100 mls/hr IV Q24H [facility] Stop: 09/19/20 20:59 Last Infusion: 09/19/20 19:40 Dose: 100 mls/hr Documented by: Lorazepam (Ativan) 1 mg IVPUSH ONETIME ONE Stop: 09/15/20 20:18 Last Admin: 09/15/20 20:21 Dose: 1 mg Documented by: Lorazepam (Ativan) Confirm Administered Dose 2 mg .ROUTE .STK-MED ONE Stop: 09/15/20 20:19 Last Admin: 09/15/20 20:21 Dose: Not Given Documented by: Lorazepam (Ativan) 1 mg PO Q6H PRN PRN Reason: Anxiety Warfarin Sodium (Coumadin) 10 mg PO 09/21/20@1200 [facility] Stop: 09/21/20 12:01 Last Admin: 09/21/20 13:47 Dose: Not Given Documented by: Warfarin Sodium (Coumadin) 10 mg PO 09/21/20@1400 [facility] Stop: 09/21/20 14:01 Last Admin: 09/21/20 13:55 Dose: 10 mg Documented by: Warfarin Sodium (Coumadin) 10 mg PO 09/22/20@1400 [facility] Stop: 09/22/20 14:01 Last Admin: 09/22/20 14:26 Dose: 10 mg Documented by: - Exam General: Alert, Oriented Neck: Supple, Trachea Midline Lungs: Clear to Auscultation, Normal Respiratory Effort, Decreased Breath Sounds Sepsis Event Note - Evaluation Sepsis Screening Result: No Definite Risk - Focused Exam Vital Signs: Vital Signs Temp Pulse Resp BP Pulse Ox 09/23/20 08:00 36.3 C 74 20 161/94 H 88 L 09/23/20 04:30 36.3 C 64 18 137/87 90 L 09/22/20 22:54 36.3 C 71 18 148/70 H 89 L - Problem List & Annotations (1) Pneumonia due to COVID-19 virus SNOMED Code(s): 742350828124884680 Code(s): U07.1 - COVID-19; J12.82 - PNEUMONIA DUE TO CORONAVIRUS DISEASE 2019 Status: Acute Current Visit: Yes (2) Renal insufficiency SNOMED Code(s): 769221034, 643657979 Code(s): N28.9 - DISORDER OF KIDNEY AND URETER, UNSPECIFIED Status: Acute Current Visit: Yes (3) Respiratory failure with hypoxia SNOMED Code(s): 82715632240347772 Code(s): J96.91 - RESPIRATORY FAILURE, UNSPECIFIED WITH HYPOXIA Status: Acute Current Visit: Yes Qualifiers: Chronicity: acute Qualified Code(s): J96.01 - Acute respiratory failure with hypoxia - Problem List Review Problem List Initiated/Reviewed/Updated: Yes - Plan Plan:: 54 yo female admitted for acute hypoxic respiratory failure from COVID pneumonia and acute kidney injury Acute hypoxic respiratory failure: improving and is currently down to RA on rest COVID pneumonia: Treating with dexamethasone, completed remdesivir, Received 2 units of Convalescent plasma continue Heparin drip; started pt on Warfarin with goal INR of 2-3.0; Since consolidation noted in right mid-lower lobe; continue Azithromycin/CTX for concerns for bacterial component as well BRI: creatinine 1.4; Hold Bumex today and recheck in following AM for improvement of BRI ; advise to continue to hydrate via PO elevated d-dimer: continue Heparin Drip, perfusion study intermediate, will consider CTA once creatinine improves and hydration status is nominal; patient keen on going home in AM. INR not currently at therapeutic level however ; pt may require Warfarin until CTA to r.o PE Continue PPI daily PO
[2020-09-23] MEDS ORDERED: Bumetanide 1 MG Tab PO ONE (10:30)
[2020-09-23] MEDS: Benzonatate 100 MG Cap PO PRN (11:30)
[2020-09-23] MEDS ORDERED: Warfarin 5 MG Tab PO SCH (14:00)
[2020-09-23] MEDS: Dexamethasone 4 MG Tab PO SCH (21:52)
[2020-09-23] MEDS: Azithromycin 500 MG in Sodium Chloride 0.9% 250 ML IV SCH (23:43)
[2020-09-24 04:56] LABS: CARBON DIOXIDE,CO2 27.3 mmol/L (21.0-32.0); POTASSIUM,K 5.2 mmol/L (3.5-5.1)
[2020-09-24] MEDS: Nystatin Topical Powder 15 GM Bottle TOP SCH (06:31)
[2020-09-24] MEDS: Insulin Aspart 100 Units/ML 3 ML Pen SUBCUT SCH (06:32)
[2020-09-24] MEDS: Pantoprazole 40 MG Tab.CR PO SCH (06:32)
--- NOTE | 2020-09-24 08:44 | US ---
Indication: Acute kidney injury Technique: Sonography of the kidneys and bladder was performed. Comparison: None of this type Findings: The right kidney measures 10.5 x 6.3 x 4.4 centimeters. The left kidney measures 10.3 x 5.4 x 4.7 centimeters. There is no hydronephrosis, calculus or mass identified. There is cortical thinning bilaterally. The bladder showed no evident abnormality. The prevoid volume was 194.4 cc and there is only a 2.5 milliliter postvoid residual. There are incidental finding sever not fully or formally study. There is abnormal hepatic echogenicity statistically most likely due to fatty infiltration. There is cholelithiasis. The common duct measures 3 millimeters which is normal. Impression: 1. No evidence of obstructive uropathy, mass or calculus. No perinephric collection. The kidneys are normal size but there is cortical thinning. 2. Normal-appearing bladder. 3. While not formally studied, there is cholelithiasis. Hepatic echogenicity is also abnormal probably related to steatosis. Dictated by Shukri Webb MD @ Sep 24 2020 8:37AM Signed by Dr. Shukri Webb @ Sep 24 2020 8:41AM
--- NOTE | 2020-09-24 09:37 | PCM.DCSUM1 ---
<Otoniel Washington - Last Filed: 09/24/20 10:59> Discharge Summary - Hospital Course Free Text/Narrative:: Patient is a 53-year-old female with significant past medical history of morbid obesity presenting on 09/11/2020 due to complaints of shortness of breath and dysuria. patient on arrival was diagnosed with COVID-19 with bronchitis and sent home with prednisone and prescription cough syrup. However patient had increasing urinary frequency dysuria with worsening of shortness of breath and returned to the ED. On September 15 patient was admitted for acute hypoxic respiratory failure secondary to Covid/bronchitis. ED course: Covid positive Chest x-ray suggested right mid and lower lung consolidation with concerns about pneumonia. D-dimer was also elevated and a CTA was considered, however ,secondary to patient's GFR of 27 and creatinine of 1.3 ;CTA was held. Patient was started on heparin and admitted to the ICU. For consolidations in lungs: started and completed course of azithromycin and ceftriaxone. Hospital course: VQ scan ordered suggesting indeterminant perfusion findings. (ventilation portion of VQ scan not performed secondary to Covid concerns)' patient was continued on heparin and it was decided to start patient on warfarin while awaiting resolution of BRI. Respiratory status: Short course of BiPAP while in ED; switched to HHF of 40 L @ 60 % Fio2. pt continued to wean down throughout stay and was off o2 on day of discharge at rest. O2 requirements of 1-2 liter necessary secondary to o2 sats of 81 % on exertion; sent home w. 1-2 L NC for exertional dyspnea. Completed both 4 days of remedesivir + Convalescent plasma while inpatient. PRN doses of Bumex given on initial 2-3 days w. good urine output and subsequent titration down of oxygen requirements. However since patient does have BRI (Cr of 1.4) Bumex was given sparingly. No overt signs of heart failure noted Since warfarin started and therapeutic range of 2-3 achieved; discharged w. 15 additional days of warfarin 5 mg; rx to recheck INR on 09-27-2020/ with recheck of BMP to see for improvement of kidney function; can consider getting a CTA to determine further need for anti-coagulation BRI: Cr of 1.4 on discharge. Retroperitoneal U/S ltd suggested no acute hydronephrosis but does suggest bilateral cortical thinning; consider chronic component (e.g uncontrolled HTN/DM) in outpatient setting as well; (may consider A nephrology consult to monitor kidney function in outpatient setting ) urine studies did also suggest a chronic kidney dysfunctional picture; advised pt. to continue low salt diet; will hold losartan and start amlodipine 10 mg daily for BP control; advised to follow up with PCP to titrate as needed. Advised to continue Bumex daily pt discharged in stable condition w. 1 additional day of dexamethasone to complete 10 day course disposition: home condition: stable - Discharge Data Discharge Date: 09/24/20 Discharge Disposition: Home, Self-Care 01 Condition: Stable - Referral to Home Health Primary Care Physician: Alaina Murry, - Discharge Diagnosis/Problem(s) (1) COVID-19 SNOMED Code(s): 770028068 ICD Code: U07.1 - COVID-19 Status: Acute (2) Pneumonia due to COVID-19 virus SNOMED Code(s): 095875761497136125 ICD Code: U07.1 - COVID-19; J12.82 - PNEUMONIA DUE TO CORONAVIRUS DISEASE 2018 Status: Acute (3) Renal insufficiency SNOMED Code(s): 576536847, 561573088 ICD Code: N28.9 - DISORDER OF KIDNEY AND URETER, UNSPECIFIED Status: Acute (4) Persistent cough SNOMED Code(s): 518427856 ICD Code: R05 - COUGH Status: Acute - Patient Instructions Diet: Diabetic Diet Notify Provider of: Fever, Increased Pain, Nausea and/or Vomiting - Discharge Plan *PRESCRIPTION DRUG MONITORING PROGRAM REVIEWED*: No *COPY OF PRESCRIPTION DRUG MONITORING REPORT IN PATIENT KRISSY: No Prescriptions/Med Rec: amLODIPine Besylate [Amlodipine Besylate] 10 mg PO DAILY 30 Days #30 tablet Benzonatate 200 mg PO TID PRN 7 Days #21 capsule PRN Reason: Cough Warfarin [Coumadin] 5 mg PO DAILY 14 Days #14 tab dexAMETHasone [Decadron] 6 mg PO DAILY 1 Days #1 tablet Home Medications: Home Meds Codeine Phosphate/Guaifenesin [Guaifen-Codeine 100-10 mg/5 ml] 10 ml PO Q6HR PRN #240 liquid 09/11/20 [Rx] Albuterol [Ventolin HFA] 2 puff INH Q4HR PRN 09/17/20 [History] Bumetanide 1 mg PO BID 09/17/20 [History] Acetaminophen [Tylenol] 650 mg PO Q4H PRN tablet 09/24/20 [Rx] Benzonatate 200 mg PO TID PRN 7 Days #21 capsule 09/24/20 [Rx] Warfarin [Coumadin] 5 mg PO DAILY 14 Days #14 tab 09/24/20 [Rx] amLODIPine Besylate [Amlodipine Besylate] 10 mg PO DAILY 30 Days #30 tablet 09/24/20 [Rx] dexAMETHasone [Decadron] 6 mg PO DAILY 1 Days #1 tablet 09/24/20 [Rx] Oxygen Therapy Mode: Nasal Cannula Patient Handouts: COVID-19: What Your Test Results Mean - [facility], COVID-19 Frequently Asked Questions, COVID-19, Warfarin tablets, COVID-19: How to Protect Yourself and Others - [facility], COVID-19: Quarantine vs. Isolation - [facility], Dexamethasone tablets, Benzonatate capsules, Amlodipine; Atorvastatin oral tablets Referrals: Alaina Murry DO [Primary Care Provider] - 10/03/20 9:45 am - Discharge Summary/Plan Comment DC Time >30 min.: No - Patient Data Vitals - Most Recent: Last Vital Signs Temp 96.9 F 09/24/20 07:58 Pulse 66 09/24/20 07:58 Resp 19 09/24/20 07:58 BP 150/88 H 09/24/20 07:58 Pulse Ox 88 L 09/24/20 07:58 Weight - Most Recent: 182.344 kg I&O - Last 24 hours: Intake & Output 09/23/20 09/24/20 09/24/20 22:59 06:59 14:59 Intake Total 820 840 Output Total 2700 1200 Balance -1880 -360 Lab Results - Last 24 hrs: Laboratory Results - last 24 hr 09/23/20 09/23/20 09/23/20 Range/Units 06:49 09:03 09:03 WBC (4.0-11.0) K/uL RBC (4.30-5.90) M/uL Hgb (12.0-16.0) g/dL Hct (36.0-46.0) % MCV (80.0-98.0) fL MCH (27.0-32.0) pg MCHC (31.0-37.0) g/dL RDW Std Deviation (28.0-62.0) fl RDW Coeff of Sandor (11.0-15.0) % Plt Count (150-400) K/uL MPV (7.40-12.00) fL Add Manual Diff Neutrophils % (Manual) 64 (48.0-80.0) % Band Neutrophils % 7 % Lymphocytes % (Manual) 20 (16.0-40.0) % Monocytes % (Manual) 8 (0.0-15.0) % Metamyelocytes % 1 % Nucleated RBC % /100WBC Absolute Seg Neuts 6.2 H (1.4-5.7) Band Neutrophils # 0.7 Lymphocytes # (Manual) 1.9 (0.6-2.4) Monocytes # (Manual) 0.8 (0.0-0.8) Absolute Metamyelocyte 0.1 Nucleated RBCs # K/uL INR APTT (18.6-31.3) SEC Sodium 140 (136-145) mmol/L Potassium 5.0 (3.5-5.1) mmol/L Chloride 105 (98-107) mmol/L Carbon Dioxide 27.7 (21.0-32.0) mmol/L BUN 22 H (7.0-18.0) mg/dL Creatinine 1.4 H (0.6-1.0) mg/dL Est Cr Clr Drug Dosing 45.19 mL/min Estimated GFR (MDRD) 39.3 ml/min Glucose 145 H (74-106) mg/dL POC Glucose 149 H (60-110) mg/dL Calcium 9.0 (8.5-10.1) mg/dL Phosphorus (2.6-4.7) mg/dL Magnesium (1.8-2.4) mg/dL Total Bilirubin 0.5 (0.2-1.0) mg/dL AST 26 (15-37) IU/L ALT 50 (14-63) IU/L Alkaline Phosphatase 50 (46-116) U/L Total Protein 7.1 (6.4-8.2) g/dL Albumin 2.6 L (3.4-5.0) g/dL Globulin 4.5 H (2.6-4.0) g/dL Albumin/Globulin Ratio 0.6 L (0.9-1.6) Ur Random Creatinine mg/dL Ur Random Sodium (40.0-220.0) mmol/L Ur Random Potassium mmol/L Ur Random Chloride mmol/L 09/23/20 09/23/20 09/23/20 Range/Units 09:03 09:03 11:35 WBC (4.0-11.0) K/uL RBC (4.30-5.90) M/uL Hgb (12.0-16.0) g/dL Hct (36.0-46.0) % MCV (80.0-98.0) fL MCH (27.0-32.0) pg MCHC (31.0-37.0) g/dL RDW Std Deviation (28.0-62.0) fl RDW Coeff of Sandor (11.0-15.0) % Plt Count (150-400) K/uL MPV (7.40-12.00) fL Add Manual Diff Neutrophils % (Manual) (48.0-80.0) % Band Neutrophils % % Lymphocytes % (Manual) (16.0-40.0) % Monocytes % (Manual) (0.0-15.0) % Metamyelocytes % % Nucleated RBC % /100WBC Absolute Seg Neuts (1.4-5.7) Band Neutrophils # Lymphocytes # (Manual) (0.6-2.4) Monocytes # (Manual) (0.0-0.8) Absolute Metamyelocyte Nucleated RBCs # K/uL INR 1.95 APTT 44.3 H (18.6-31.3) SEC Sodium (136-145) mmol/L Potassium (3.5-5.1) mmol/L Chloride (98-107) mmol/L Carbon Dioxide (21.0-32.0) mmol/L BUN (7.0-18.0) mg/dL Creatinine (0.6-1.0) mg/dL Est Cr Clr Drug Dosing mL/min Estimated GFR (MDRD) ml/min Glucose (74-106) mg/dL POC Glucose 103 (60-110) mg/dL Calcium (8.5-10.1) mg/dL Phosphorus (2.6-4.7) mg/dL Magnesium (1.8-2.4) mg/dL Total Bilirubin (0.2-1.0) mg/dL AST (15-37) IU/L ALT (14-63) IU/L Alkaline Phosphatase (46-116) U/L Total Protein (6.4-8.2) g/dL Albumin (3.4-5.0) g/dL Globulin (2.6-4.0) g/dL Albumin/Globulin Ratio (0.9-1.6) Ur Random Creatinine mg/dL Ur Random Sodium (40.0-220.0) mmol/L Ur Random Potassium mmol/L Ur Random Chloride mmol/L 09/23/20 09/23/20 09/23/20 Range/Units 16:28 17:12 22:23 WBC (4.0-11.0) K/uL RBC (4.30-5.90) M/uL Hgb (12.0-16.0) g/dL Hct (36.0-46.0) % MCV (80.0-98.0) fL MCH (27.0-32.0) pg MCHC (31.0-37.0) g/dL RDW Std Deviation (28.0-62.0) fl RDW Coeff of Sandor (11.0-15.0) % Plt Count (150-400) K/uL MPV (7.40-12.00) fL Add Manual Diff Neutrophils % (Manual) (48.0-80.0) % Band Neutrophils % % Lymphocytes % (Manual) (16.0-40.0) % Monocytes % (Manual) (0.0-15.0) % Metamyelocytes % % Nucleated RBC % /100WBC Absolute Seg Neuts (1.4-5.7) Band Neutrophils # Lymphocytes # (Manual) (0.6-2.4) Monocytes # (Manual) (0.0-0.8) Absolute Metamyelocyte Nucleated RBCs # K/uL INR APTT 59.6 H 64.8 H (18.6-31.3) SEC Sodium (136-145) mmol/L Potassium (3.5-5.1) mmol/L Chloride (98-107) mmol/L Carbon Dioxide (21.0-32.0) mmol/L BUN (7.0-18.0) mg/dL Creatinine (0.6-1.0) mg/dL Est Cr Clr Drug Dosing mL/min Estimated GFR (MDRD) ml/min Glucose (74-106) mg/dL POC Glucose 120 H (60-110) mg/dL Calcium (8.5-10.1) mg/dL Phosphorus (2.6-4.7) mg/dL Magnesium (1.8-2.4) mg/dL Total Bilirubin (0.2-1.0) mg/dL AST (15-37) IU/L ALT (14-63) IU/L Alkaline Phosphatase (46-116) U/L Total Protein (6.4-8.2) g/dL Albumin (3.4-5.0) g/dL Globulin (2.6-4.0) g/dL Albumin/Globulin Ratio (0.9-1.6) Ur Random Creatinine mg/dL Ur Random Sodium (40.0-220.0) mmol/L Ur Random Potassium mmol/L Ur Random Chloride mmol/L 09/24/20 09/24/20 09/24/20 Range/Units 04:30 04:30 04:30 WBC 9.82 (4.0-11.0) K/uL RBC 4.48 (4.30-5.90) M/uL Hgb 12.3 (12.0-16.0) g/dL Hct 39.2 (36.0-46.0) % MCV 87.5 (80.0-98.0) fL MCH 27.5 (27.0-32.0) pg MCHC 31.4 (31.0-37.0) g/dL RDW Std Deviation 46.8 (28.0-62.0) fl RDW Coeff of Sandor 15 (11.0-15.0) % Plt Count 342 (150-400) K/uL MPV 9.50 (7.40-12.00) fL Add Manual Diff YES Neutrophils % (Manual) 72 (48.0-80.0) % Band Neutrophils % 9 % Lymphocytes % (Manual) 11 L (16.0-40.0) % Monocytes % (Manual) 5 (0.0-15.0) % Metamyelocytes % 3 % Nucleated RBC % 0.0 /100WBC Absolute Seg Neuts 7.1 H (1.4-5.7) Band Neutrophils # 0.9 Lymphocytes # (Manual) 1.1 (0.6-2.4) Monocytes # (Manual) 0.5 (0.0-0.8) Absolute Metamyelocyte 0.3 Nucleated RBCs # 0 K/uL INR 2.63 APTT (18.6-31.3) SEC Sodium 138 (136-145) mmol/L Potassium 5.2 H (3.5-5.1) mmol/L Chloride 104 (98-107) mmol/L Carbon Dioxide 27.3 (21.0-32.0) mmol/L BUN 23 H (7.0-18.0) mg/dL Creatinine 1.4 H (0.6-1.0) mg/dL Est Cr Clr Drug Dosing 45.19 mL/min Estimated GFR (MDRD) 39.3 ml/min Glucose 182 H (74-106) mg/dL POC Glucose (60-110) mg/dL Calcium 9.4 (8.5-10.1) mg/dL Phosphorus 4.4 (2.6-4.7) mg/dL Magnesium 2.1 (1.8-2.4) mg/dL Total Bilirubin (0.2-1.0) mg/dL AST (15-37) IU/L ALT (14-63) IU/L Alkaline Phosphatase (46-116) U/L Total Protein (6.4-8.2) g/dL Albumin (3.4-5.0) g/dL Globulin (2.6-4.0) g/dL Albumin/Globulin Ratio (0.9-1.6) Ur Random Creatinine mg/dL Ur Random Sodium (40.0-220.0) mmol/L Ur Random Potassium mmol/L Ur Random Chloride mmol/L 09/24/20 09/24/20 09/24/20 Range/Units 04:30 06:24 06:30 WBC (4.0-11.0) K/uL RBC (4.30-5.90) M/uL Hgb (12.0-16.0) g/dL Hct (36.0-46.0) % MCV (80.0-98.0) fL MCH (27.0-32.0) pg MCHC (31.0-37.0) g/dL RDW Std Deviation (28.0-62.0) fl RDW Coeff of Sandor (11.0-15.0) % Plt Count (150-400) K/uL MPV (7.40-12.00) fL Add Manual Diff Neutrophils % (Manual) (48.0-80.0) % Band Neutrophils % % Lymphocytes % (Manual) (16.0-40.0) % Monocytes % (Manual) (0.0-15.0) % Metamyelocytes % % Nucleated RBC % /100WBC Absolute Seg Neuts (1.4-5.7) Band Neutrophils # Lymphocytes # (Manual) (0.6-2.4) Monocytes # (Manual) (0.0-0.8) Absolute Metamyelocyte Nucleated RBCs # K/uL INR APTT 70.1 H (18.6-31.3) SEC Sodium (136-145) mmol/L Potassium (3.5-5.1) mmol/L Chloride (98-107) mmol/L Carbon Dioxide (21.0-32.0) mmol/L BUN (7.0-18.0) mg/dL Creatinine (0.6-1.0) mg/dL Est Cr Clr Drug Dosing mL/min Estimated GFR (MDRD) ml/min Glucose (74-106) mg/dL POC Glucose 151 H (60-110) mg/dL Calcium (8.5-10.1) mg/dL Phosphorus (2.6-4.7) mg/dL Magnesium (1.8-2.4) mg/dL Total Bilirubin (0.2-1.0) mg/dL AST (15-37) IU/L ALT (14-63) IU/L Alkaline Phosphatase (46-116) U/L Total Protein (6.4-8.2) g/dL Albumin (3.4-5.0) g/dL Globulin (2.6-4.0) g/dL Albumin/Globulin Ratio (0.9-1.6) Ur Random Creatinine 34.2 mg/dL Ur Random Sodium 102.0 (40.0-220.0) mmol/L Ur Random Potassium 21.9 mmol/L Ur Random Chloride 114 mmol/L Med Orders - Current: Current Medications Acetaminophen (Tylenol) 650 mg PO Q4H PRN PRN Reason: Pain (Mild 1-3)/fever Last Admin: 09/17/20 20:47 Dose: 650 mg Documented by: Albuterol/Ipratropium (Combivent Respimat) 0 gm INH Q4H PRN PRN Reason: Dyspnea Last Admin: 09/19/20 22:00 Dose: 1 puff Documented by: Benzonatate (Tessalon Perles) 200 mg PO TID PRN PRN Reason: Cough Last Admin: 09/23/20 11:30 Dose: 200 mg Documented by: Dexamethasone (Dexamethasone) 6 mg PO Q24H [facility] Last Admin: 09/23/20 21:52 Dose: 6 mg Documented by: Dextrose/Water (Dextrose 50% In Water) 50 ml IV ASDIRECTED PRN PRN Reason: Hypoglycemia Glucagon (Glucagen) 1 mg IM ASDIRECTED PRN PRN Reason: Hypoglycemia Guaifenesin/Codeine Phosphate (Robitussin Ac) 10 ml PO Q6H PRN PRN Reason: Cough Last Admin: 09/21/20 18:07 Dose: 10 ml Documented by: Azithromycin 500 mg/ Sodium (Chloride) 250 mls @ 250 mls/hr IV Q24H [facility] Last Admin: 09/23/20 23:43 Dose: 250 mls/hr Documented by: Ceftriaxone Sodium/Dextrose (Rocephin In Dextrose,Iso-Osm 1 Gm/50 Ml) 50 mls @ 100 mls/hr IV Q24H [facility] Last Admin: 09/23/20 22:26 Dose: 100 mls/hr Documented by: Insulin Aspart (Novolog) 0 unit SUBCUT TIDAC [facility]; Protocol Last Admin: 09/24/20 06:32 Dose: Not Given Documented by: Nystatin (Nystop) 0 gm TOP TID [facility] Last Admin: 09/24/20 06:31 Dose: Not Given Documented by: Pantoprazole Sodium (Protonix) 40 mg PO ACBREAKFAST [facility] Last Admin: 09/24/20 06:32 Dose: 40 mg Documented by: Warfarin Sodium (Coumadin Ask) 1 each PO DAILY@1400 [facility] Last Admin: 09/23/20 14:10 Dose: Not Given Documented by: Discontinued Medications Acetaminophen (Tylenol Extra Strength) 1,000 mg PO ONETIME ONE Stop: 09/15/20 20:09 Last Admin: 09/15/20 20:15 Dose: 1,000 mg Documented by: Bumetanide (Bumex) 1 mg PO ONETIME ONE Stop: 09/18/20 14:11 Last Admin: 09/18/20 14:16 Dose: 1 mg Documented by: Bumetanide (Bumex) 1 mg PO ONETIME ONE Stop: 09/19/20 09:31 Last Admin: 09/19/20 10:18 Dose: 1 mg Documented by: Bumetanide (Bumex) 1 mg PO ONETIME ONE Stop: 09/20/20 09:25 Last Admin: 09/20/20 09:40 Dose: 1 mg Documented by: Bumetanide (Bumex) 1 mg PO ONETIME ONE Stop: 09/23/20 10:31 Last Admin: 09/23/20 11:30 Dose: 1 mg Documented by: Dexamethasone (Decadron) 6 mg IVPUSH ONETIME ONE Stop: 09/15/20 19:31 Last Admin: 09/15/20 20:02 Dose: 6 mg Documented by: Enoxaparin Sodium (Lovenox) 40 mg SUBCUT Q12HR [facility] Last Admin: 09/15/20 23:17 Dose: 40 mg Documented by: Heparin Sodium (Porcine) (Heparin Sodium) 7,500 units IVPUSH .BOLUS ONE Stop: 09/16/20 05:01 Last Admin: 09/16/20 06:31 Dose: 7,500 units Documented by: Heparin Sodium (Porcine) (Heparin Sodium) 1,500 units IVPUSH .BOLUS ONE Stop: 09/16/20 11:44 Last Admin: 09/16/20 11:52 Dose: 1,500 units Documented by: Heparin Sodium (Porcine) (Heparin Sodium) 1,500 units IVPUSH BOLUS ONE Stop: 09/16/20 17:46 Last Admin: 09/16/20 17:53 Dose: 1,500 units Documented by: Heparin Sodium (Porcine) (Heparin Sodium) 1,500 units IVPUSH .BOLUS ONE Stop: 09/17/20 00:01 Last Admin: 09/17/20 00:06 Dose: 1,500 units Documented by: Heparin Sodium (Porcine) (Heparin Sodium) 1,500 units IVPUSH .BOLUS ONE Stop: 09/21/20 19:43 Last Admin: 09/21/20 19:54 Dose: 1,500 units Documented by: Heparin Sodium (Porcine) (Heparin Sodium) 1,500 units IVPUSH .BOLUS ONE Stop: 09/23/20 10:05 Last Admin: 09/23/20 10:17 Dose: 1,500 units Documented by: Remdesivir 200 mg/ Sodium (Chloride) 250 mls @ 250 mls/hr IV ONETIME ONE Stop: 09/15/20 19:30 Last Admin: 09/15/20 20:03 Dose: 250 mls/hr Documented by: Sodium Chloride (Normal Saline) 1,000 mls @ 125 mls/hr IV STAT ONE Stop: 09/16/20 04:08 Last Admin: 09/15/20 20:20 Dose: 125 mls/hr Documented by: Remdesivir 100 mg/ Sodium (Chloride) 100 mls @ 100 mls/hr IV Q24H [facility] Stop: 09/19/20 20:59 Last Infusion: 09/19/20 19:40 Dose: 100 mls/hr Documented by: Heparin Sodium/Sodium Chloride (Heparin 25,000 Units In 1/2 Ns 500 Ml) 500 mls @ 25.585 mls/hr IV TITRATE [facility]; Protocol Last Titration: 09/24/20 04:57 Dose: 10.1 units/kg/hr, 36.916 mls/hr Documented by: Lorazepam (Ativan) 1 mg IVPUSH ONETIME ONE Stop: 09/15/20 20:18 Last Admin: 09/15/20 20:21 Dose: 1 mg Documented by: Lorazepam (Ativan) Confirm Administered Dose 2 mg .ROUTE .STK-MED ONE Stop: 09/15/20 20:19 Last Admin: 09/15/20 20:21 Dose: Not Given Documented by: Lorazepam (Ativan) 1 mg PO Q6H PRN PRN Reason: Anxiety Warfarin Sodium (Coumadin) 10 mg PO 09/21/20@1200 [facility] Stop: 09/21/20 12:01 Last Admin: 09/21/20 13:47 Dose: Not Given Documented by: Warfarin Sodium (Coumadin) 10 mg PO 09/21/20@1400 [facility] Stop: 09/21/20 14:01 Last Admin: 09/21/20 13:55 Dose: 10 mg Documented by: Warfarin Sodium (Coumadin) 10 mg PO 09/22/20@1400 [facility] Stop: 09/22/20 14:01 Last Admin: 09/22/20 14:26 Dose: 10 mg Documented by: Warfarin Sodium (Coumadin) 5 mg PO 09/23/20@1400 [facility] Stop: 09/23/20 15:00 Last Admin: 09/23/20 14:10 Dose: 5 mg Documented by: <Isa Luu - Last Filed: 09/24/20 21:27> Discharge Summary - Hospital Course Free Text/Narrative:: Patient seen and examined by me. I have discussed the management plan with the resident agree with the note above . - Referral to Home Health Primary Care Physician: Alaina Murry DO - Discharge Diagnosis/Problem(s) (1) Pneumonia due to COVID-19 virus SNOMED Code(s): 982829999575377614 ICD Code: U07.1 - COVID-19; J12.82 - PNEUMONIA DUE TO CORONAVIRUS DISEASE 2019 Status: Acute (2) Renal insufficiency SNOMED Code(s): 268448541, 158246364 ICD Code: N28.9 - DISORDER OF KIDNEY AND URETER, UNSPECIFIED Status: Acute (3) Respiratory failure with hypoxia SNOMED Code(s): 74109190999648662 ICD Code: J96.91 - RESPIRATORY FAILURE, UNSPECIFIED WITH HYPOXIA Status: Acute Qualifiers: Chronicity: acute Qualified Code(s): J96.01 - Acute respiratory failure with hypoxia - Patient Data Vitals - Most Recent: Last Vital Signs Temp 36.1 C 09/24/20 07:58 Pulse 66 09/24/20 07:58 Resp 19 09/24/20 07:58 BP 150/88 H 09/24/20 07:58 Pulse Ox 88 L 09/24/20 07:58 I&O - Last 24 hours: Intake & Output 09/24/20 09/24/20 09/24/20 06:59 14:59 22:59 Intake Total 840 360 Output Total 1200 700 Balance -360 -340 Lab Results - Last 24 hrs: Laboratory Results - last 24 hr 09/23/20 09/24/20 09/24/20 Range/Units 22:23 04:30 04:30 WBC 9.82 (4.0-11.0) K/uL RBC 4.48 (4.30-5.90) M/uL Hgb 12.3 (12.0-16.0) g/dL Hct 39.2 (36.0-46.0) % MCV 87.5 (80.0-98.0) fL MCH 27.5 (27.0-32.0) pg MCHC 31.4 (31.0-37.0) g/dL RDW Std Deviation 46.8 (28.0-62.0) fl RDW Coeff of Sandor 15 (11.0-15.0) % Plt Count 342 (150-400) K/uL MPV 9.50 (7.40-12.00) fL Add Manual Diff YES Neutrophils % (Manual) 72 (48.0-80.0) % Band Neutrophils % 9 % Lymphocytes % (Manual) 11 L (16.0-40.0) % Monocytes % (Manual) 5 (0.0-15.0) % Metamyelocytes % 3 % Nucleated RBC % 0.0 /100WBC Absolute Seg Neuts 7.1 H (1.4-5.7) Band Neutrophils # 0.9 Lymphocytes # (Manual) 1.1 (0.6-2.4) Monocytes # (Manual) 0.5 (0.0-0.8) Absolute Metamyelocyte 0.3 Nucleated RBCs # 0 K/uL INR 2.63 APTT 64.8 H (18.6-31.3) SEC Sodium (136-145) mmol/L Potassium (3.5-5.1) mmol/L Chloride (98-107) mmol/L Carbon Dioxide (21.0-32.0) mmol/L BUN (7.0-18.0) mg/dL Creatinine (0.6-1.0) mg/dL Est Cr Clr Drug Dosing mL/min Estimated GFR (MDRD) ml/min Glucose (74-106) mg/dL POC Glucose (60-110) mg/dL Calcium (8.5-10.1) mg/dL Phosphorus (2.6-4.7) mg/dL Magnesium (1.8-2.4) mg/dL Ur Random Creatinine mg/dL Ur Random Sodium (40.0-220.0) mmol/L Ur Random Potassium mmol/L Ur Random Chloride mmol/L 09/24/20 09/24/20 09/24/20 Range/Units 04:30 04:30 06:24 WBC (4.0-11.0) K/uL RBC (4.30-5.90) M/uL Hgb (12.0-16.0) g/dL Hct (36.0-46.0) % MCV (80.0-98.0) fL MCH (27.0-32.0) pg MCHC (31.0-37.0) g/dL RDW Std Deviation (28.0-62.0) fl RDW Coeff of Sandor (11.0-15.0) % Plt Count (150-400) K/uL MPV (7.40-12.00) fL Add Manual Diff Neutrophils % (Manual) (48.0-80.0) % Band Neutrophils % % Lymphocytes % (Manual) (16.0-40.0) % Monocytes % (Manual) (0.0-15.0) % Metamyelocytes % % Nucleated RBC % /100WBC Absolute Seg Neuts (1.4-5.7) Band Neutrophils # Lymphocytes # (Manual) (0.6-2.4) Monocytes # (Manual) (0.0-0.8) Absolute Metamyelocyte Nucleated RBCs # K/uL INR APTT 70.1 H (18.6-31.3) SEC Sodium 138 (136-145) mmol/L Potassium 5.2 H (3.5-5.1) mmol/L Chloride 104 (98-107) mmol/L Carbon Dioxide 27.3 (21.0-32.0) mmol/L BUN 23 H (7.0-18.0) mg/dL Creatinine 1.4 H (0.6-1.0) mg/dL Est Cr Clr Drug Dosing 45.19 mL/min Estimated GFR (MDRD) 39.3 ml/min Glucose 182 H (74-106) mg/dL POC Glucose 151 H (60-110) mg/dL Calcium 9.4 (8.5-10.1) mg/dL Phosphorus 4.4 (2.6-4.7) mg/dL Magnesium 2.1 (1.8-2.4) mg/dL Ur Random Creatinine mg/dL Ur Random Sodium (40.0-220.0) mmol/L Ur Random Potassium mmol/L Ur Random Chloride mmol/L 09/24/20 Range/Units 06:30 WBC (4.0-11.0) K/uL RBC (4.30-5.90) M/uL Hgb (12.0-16.0) g/dL Hct (36.0-46.0) % MCV (80.0-98.0) fL MCH (27.0-32.0) pg MCHC (31.0-37.0) g/dL RDW Std Deviation (28.0-62.0) fl RDW Coeff of Sandor (11.0-15.0) % Plt Count (150-400) K/uL MPV (7.40-12.00) fL Add Manual Diff Neutrophils % (Manual) (48.0-80.0) % Band Neutrophils % % Lymphocytes % (Manual) (16.0-40.0) % Monocytes % (Manual) (0.0-15.0) % Metamyelocytes % % Nucleated RBC % /100WBC Absolute Seg Neuts (1.4-5.7) Band Neutrophils # Lymphocytes # (Manual) (0.6-2.4) Monocytes # (Manual) (0.0-0.8) Absolute Metamyelocyte Nucleated RBCs # K/uL INR APTT (18.6-31.3) SEC Sodium (136-145) mmol/L Potassium (3.5-5.1) mmol/L Chloride (98-107) mmol/L Carbon Dioxide (21.0-32.0) mmol/L BUN (7.0-18.0) mg/dL Creatinine (0.6-1.0) mg/dL Est Cr Clr Drug Dosing mL/min Estimated GFR (MDRD) ml/min Glucose (74-106) mg/dL POC Glucose (60-110) mg/dL Calcium (8.5-10.1) mg/dL Phosphorus (2.6-4.7) mg/dL Magnesium (1.8-2.4) mg/dL Ur Random Creatinine 34.2 mg/dL Ur Random Sodium 102.0 (40.0-220.0) mmol/L Ur Random Potassium 21.9 mmol/L Ur Random Chloride 114 mmol/L Med Orders - Current: Current Medications Discontinued Medications Acetaminophen (Tylenol Extra Strength) 1,000 mg PO ONETIME ONE Stop: 09/15/20 20:09 Last Admin: 09/15/20 20:15 Dose: 1,000 mg Documented by: Acetaminophen (Tylenol) 650 mg PO Q4H PRN PRN Reason: Pain (Mild 1-3)/fever Last Admin: 09/17/20 20:47 Dose: 650 mg Documented by: Albuterol/Ipratropium (Combivent Respimat) 0 gm INH Q4H PRN PRN Reason: Dyspnea Last Admin: 09/19/20 22:00 Dose: 1 puff Documented by: Benzonatate (Tessalon Perles) 200 mg PO TID PRN PRN Reason: Cough Last Admin: 09/23/20 11:30 Dose: 200 mg Documented by: Bumetanide (Bumex) 1 mg PO ONETIME ONE Stop: 09/18/20 14:11 Last Admin: 09/18/20 14:16 Dose: 1 mg Documented by: Bumetanide (Bumex) 1 mg PO ONETIME ONE Stop: 09/19/20 09:31 Last Admin: 09/19/20 10:18 Dose: 1 mg Documented by: Bumetanide (Bumex) 1 mg PO ONETIME ONE Stop: 09/20/20 09:25 Last Admin: 09/20/20 09:40 Dose: 1 mg Documented by: Bumetanide (Bumex) 1 mg PO ONETIME ONE Stop: 09/23/20 10:31 Last Admin: 09/23/20 11:30 Dose: 1 mg Documented by: Dexamethasone (Decadron) 6 mg IVPUSH ONETIME ONE Stop: 09/15/20 19:31 Last Admin: 09/15/20 20:02 Dose: 6 mg Documented by: Dexamethasone (Dexamethasone) 6 mg PO Q24H [facility] Last Admin: 09/23/20 21:52 Dose: 6 mg Documented by: Dextrose/Water (Dextrose 50% In Water) 50 ml IV ASDIRECTED PRN PRN Reason: Hypoglycemia Enoxaparin Sodium (Lovenox) 40 mg SUBCUT Q12HR [facility] Last Admin: 09/15/20 23:17 Dose: 40 mg Documented by: Glucagon (Glucagen) 1 mg IM ASDIRECTED PRN PRN Reason: Hypoglycemia Guaifenesin/Codeine Phosphate (Robitussin Ac) 10 ml PO Q6H PRN PRN Reason: Cough Last Admin: 09/21/20 18:07 Dose: 10 ml Documented by: Heparin Sodium (Porcine) (Heparin Sodium) 7,500 units IVPUSH .BOLUS ONE Stop: 09/16/20 05:01 Last Admin: 09/16/20 06:31 Dose: 7,500 units Documented by: Heparin Sodium (Porcine) (Heparin Sodium) 1,500 units IVPUSH .BOLUS ONE Stop: 09/16/20 11:44 Last Admin: 09/16/20 11:52 Dose: 1,500 units Documented by: Heparin Sodium (Porcine) (Heparin Sodium) 1,500 units IVPUSH BOLUS ONE Stop: 09/16/20 17:46 Last Admin: 09/16/20 17:53 Dose: 1,500 units Documented by: Heparin Sodium (Porcine) (Heparin Sodium) 1,500 units IVPUSH .BOLUS ONE Stop: 09/17/20 00:01 Last Admin: 09/17/20 00:06 Dose: 1,500 units Documented by: Heparin Sodium (Porcine) (Heparin Sodium) 1,500 units IVPUSH .BOLUS ONE Stop: 09/21/20 19:43 Last Admin: 09/21/20 19:54 Dose: 1,500 units Documented by: Heparin Sodium (Porcine) (Heparin Sodium) 1,500 units IVPUSH .BOLUS ONE Stop: 09/23/20 10:05 Last Admin: 09/23/20 10:17 Dose: 1,500 units Documented by: Remdesivir 200 mg/ Sodium (Chloride) 250 mls @ 250 mls/hr IV ONETIME ONE Stop: 09/15/20 19:30 Last Admin: 09/15/20 20:03 Dose: 250 mls/hr Documented by: Sodium Chloride (Normal Saline) 1,000 mls @ 125 mls/hr IV STAT ONE Stop: 09/16/20 04:08 Last Admin: 09/15/20 20:20 Dose: 125 mls/hr Documented by: Remdesivir 100 mg/ Sodium (Chloride) 100 mls @ 100 mls/hr IV Q24H [facility] Stop: 09/19/20 20:59 Last Infusion: 09/19/20 19:40 Dose: 100 mls/hr Documented by: Azithromycin 500 mg/ Sodium (Chloride) 250 mls @ 250 mls/hr IV Q24H [facility] Last Admin: 09/23/20 23:43 Dose: 250 mls/hr Documented by: Ceftriaxone Sodium/Dextrose (Rocephin In Dextrose,Iso-Osm 1 Gm/50 Ml) 50 mls @ 100 mls/hr IV Q24H [facility] Last Admin: 09/23/20 22:26 Dose: 100 mls/hr Documented by: Heparin Sodium/Sodium Chloride (Heparin 25,000 Units In 1/2 Ns 500 Ml) 500 mls @ 25.585 mls/hr IV TITRATE [facility]; Protocol Last Titration: 09/24/20 04:57 Dose: 10.1 units/kg/hr, 36.916 mls/hr Documented by: Insulin Aspart (Novolog) 0 unit SUBCUT TIDAC [facility]; Protocol Last Admin: 09/24/20 06:32 Dose: Not Given Documented by: Lorazepam (Ativan) 1 mg IVPUSH ONETIME ONE Stop: 09/15/20 20:18 Last Admin: 09/15/20 20:21 Dose: 1 mg Documented by: Lorazepam (Ativan) Confirm Administered Dose 2 mg .ROUTE .STK-MED ONE Stop: 09/15/20 20:19 Last Admin: 09/15/20 20:21 Dose: Not Given Documented by: Lorazepam (Ativan) 1 mg PO Q6H PRN PRN Reason: Anxiety Nystatin (Nystop) 0 gm TOP TID [facility] Last Admin: 09/24/20 06:31 Dose: Not Given Documented by: Pantoprazole Sodium (Protonix) 40 mg PO ACBREAKFAST [facility] Last Admin: 09/24/20 06:32 Dose: 40 mg Documented by: Warfarin Sodium (Coumadin Ask) 1 each PO DAILY@1400 [facility] Last Admin: 09/23/20 14:10 Dose: Not Given Documented by: Warfarin Sodium (Coumadin) 10 mg PO 09/21/20@1200 [facility] Stop: 09/21/20 12:01 Last Admin: 09/21/20 13:47 Dose: Not Given Documented by: Warfarin Sodium (Coumadin) 10 mg PO 09/21/20@1400 [facility] Stop: 09/21/20 14:01 Last Admin: 09/21/20 13:55 Dose: 10 mg Documented by: Warfarin Sodium (Coumadin) 10 mg PO 09/22/20@1400 [facility] Stop: 09/22/20 14:01 Last Admin: 09/22/20 14:26 Dose: 10 mg Documented by: Warfarin Sodium (Coumadin) 5 mg PO 09/23/20@1400 [facility] Stop: 09/23/20 15:00 Last Admin: 09/23/20 14:10 Dose: 5 mg Documented by:
== END 2020-09-24 12:30 | disposition home or self-care (01) | DRG 137 ==
LOC: MW.ED 18:28 → MW.ICU 20:42 → MW.MS 09-21 18:20
PROVIDERS: ADMIT Internal Medicine; ATTEND Internal Medicine
PROC: XW033E5 Introduction of Remdesivir Anti-infective into Peripheral Vein, Percutaneous Approach, New Technology Group 5 (ICD-10-PCS; principal; 2020-09-15)
PROC: XW13325 Transfusion of Convalescent Plasma (Nonautologous) into Peripheral Vein, Percutaneous Approach, New Technology Group 5 (ICD-10-PCS; 2020-09-15)
DX: U07.1 COVID-19 (principal); J96.01 Acute respiratory failure with hypoxia; E66.01 Morbid (severe) obesity due to excess calories; N17.9 Acute kidney failure, unspecified; J12.82 Pneumonia due to coronavirus disease 2019; H54.7 Unspecified visual loss; I10 Essential (primary) hypertension; N93.8 Other specified abnormal uterine and vaginal bleeding; Z68.44 Body mass index [BMI] 60.0-69.9, adult; Z79.01 Long term (current) use of anticoagulants; Z79.899 Other long term (current) drug therapy; Z79.52 Long term (current) use of systemic steroids; Z87.440 Personal history of urinary (tract) infections
CPT/HCPCS: 36415; 36430; 71045; 71045-26; 76775; 76775-26; 78580; 78580-26; 80048; 80053; 81001; 82248; 82436; 82570; 82962; 83036; 83605; 83735; 83880; 84100; 84133; 84300; 84484; 85025; 85379; 85610; 85730; 86900; 86901; 87040; 93005; 93010; 93970; 93970-26; 94660; 94667; 96365; 96375; 99285-25; 99291; A9270-GY; A9540; J0456; J0696; J1100; J1644; J1650; J2060; J7030; J7050; J8540; P9017

== ENCOUNTER 2021-09-15 22:00 | Inpatient (IN) | payer BC ==
[2021-09-15] MEDS ORDERED: Diltiazem 25 MG/5 ML SDV IVPUSH ONE ×2 (22:31→23:14)
[2021-09-15 23:08] LABS: BLOOD UREA NITROGEN,BUN 41 mg/dL (7.0-18.0); CHLORIDE,CL 102 mmol/L (98-107); GLUCOSE RANDOM 145 mg/dL (74-106); POTASSIUM,K 3.8 mmol/L (3.5-5.1); SODIUM,NA 139 mmol/L (136-145)
[2021-09-15] MEDS ORDERED: Diltiazem 100 MG in Sodium Chloride 0.9% 100 ML IV SCH (23:15)
[2021-09-15 23:16] LABS: CORONAVIRUS COVID-19 NAA NEGATIVE (NEGATIVE); INFLUENZA A NAA NEGATIVE (NEGATIVE); INFLUENZA B NAA NEGATIVE (NEGATIVE)
[2021-09-15] MEDS ORDERED: Magnesium Sulfate/Water 2 GM in Premix Bag 1 BAG IV ONE (23:59)
[2021-09-15] MEDS ORDERED: Diltiazem IR 60 MG Tab PO ONE (23:59)
[2021-09-16] MEDS ORDERED: Metoprolol Tartrate 5 MG/5 ML SDV IVPUSH ONE (00:35)
[2021-09-16] MEDS ORDERED: 50% Dextrose in Water 50 ML Syringe IVPUSH PRN (02:35)
[2021-09-16] MEDS ORDERED: Glucagon,Human Recombinant 1 MG Vial IM PRN (02:35)
[2021-09-16] MEDS ORDERED: Acetaminophen 325 MG Tab PO PRN (02:36)
[2021-09-16] MEDS ORDERED: Ondansetron 4 MG/2 ML SDV IVPUSH PRN (02:37)
[2021-09-16] MEDS ORDERED: Lactated Ringers 1,000 ML IV ONE (02:39)
[2021-09-16 03:59] LABS: CARBON DIOXIDE,CO2 22.3 mmol/L (21.0-32.0); POTASSIUM,K 3.8 mmol/L (3.5-5.1)
[2021-09-16] MEDS: Diltiazem IR 60 MG Tab PO SCH ×3 (04:16→11:11)
[2021-09-16] MEDS: Pantoprazole 40 MG in Sodium Chloride 0.9% 10 ML IVPUSH SCH (07:06)
[2021-09-16] MEDS ORDERED: Insulin Aspart 100 Units/ML 3 ML Pen SUBCUT SCH (07:30)
[2021-09-16] MEDS: guaiFENesin/Dextromethorphan 100-10 MG/5 ML Soln 10 ML Cup PO PRN ×3 (08:12→22:32)
[2021-09-16] MEDS ORDERED: FLUTICASONE INH PRN (08:23)
[2021-09-16] MEDS ORDERED: VILANTEROL INH PRN (08:23)
[2021-09-16] MEDS: Albuterol/Ipratropium 3.0-0.5 MG/3 ML Neb Soln NEB PRN (08:32)
[2021-09-16] MEDS: Benzonatate 100 MG Cap PO PRN ×3 (08:33→22:32)
[2021-09-16] MEDS: LORazepam 1 MG Tab PO PRN (08:42)
[2021-09-16] MEDS: VILANTEROL INH SCH (09:01)
[2021-09-16] MEDS: FLUTICASONE INH SCH (09:01)
[2021-09-16] MEDS ORDERED: Metoprolol Tartrate 25 MG Tab PO SCH (11:00)
[2021-09-16] MEDS ORDERED: Potassium Chloride 20 MEQ Tab.ER PO ONE (12:45)
[2021-09-16] MEDS ORDERED: Diltiazem 100 MG in Sodium Chloride 0.9% 100 ML IV SCH (13:45)
[2021-09-16] MEDS: Diltiazem 180 MG Cap.CD PO SCH (17:16)
[2021-09-16] MEDS ORDERED: Rivaroxaban 15 MG Tab PO SCH (21:00)
[2021-09-16] MEDS: Metoprolol Tartrate 25 MG Tab PO SCH (23:00)
[2021-09-17] MEDS ORDERED: Metolazone 5 MG Tab PO ONE ×2 (01:30→23:25)
[2021-09-17] MEDS ORDERED: Furosemide 20 MG/2 ML VIAL IVPUSH ONE (02:00)
[2021-09-17] MEDS: Pantoprazole 40 MG in Sodium Chloride 0.9% 10 ML IVPUSH SCH (06:44)
[2021-09-17] MEDS: Diltiazem 180 MG Cap.CD PO SCH (08:40)
[2021-09-17] MEDS: Benzonatate 100 MG Cap PO PRN (08:40)
[2021-09-17] MEDS: guaiFENesin/Dextromethorphan 100-10 MG/5 ML Soln 10 ML Cup PO PRN (08:40)
[2021-09-17] MEDS: VILANTEROL INH SCH (09:20)
[2021-09-17] MEDS: FLUTICASONE INH SCH (09:20)
[2021-09-17 09:22] LABS: CARBON DIOXIDE,CO2 18.5 mmol/L (21.0-32.0)
[2021-09-17] MEDS: LORazepam 1 MG Tab PO PRN (09:46)
[2021-09-17] MEDS: Metoprolol Tartrate 25 MG Tab PO SCH ×2 (10:37→23:57)
[2021-09-17] MEDS ORDERED: Lactated Ringers 250 ML IV ONE (13:45)
[2021-09-17] MEDS ORDERED: Furosemide 40 MG/4 ML VIAL IVPUSH ONE (17:21)
[2021-09-17] MEDS ORDERED: Warfarin 5 MG Tab PO SCH (18:30)
[2021-09-17] MEDS ORDERED: FUROSEMIDE IV ONE (18:30)
[2021-09-17] MEDS ORDERED: SODIUM CHLORIDE 0.9% IV ONE (18:30)
[2021-09-17] MEDS: Heparin Sodium/0.45% NaCl 500 ML IV SCH (18:41)
[2021-09-17] MEDS ORDERED: Levofloxacin/Dextrose 5%-Water 750 MG in Premix Bag 1 BAG IV ONE (21:30)
[2021-09-17] MEDS ORDERED: Midazolam 1 MG/ML 2 ML SDV IVPUSH ONE (23:09)
[2021-09-17] MEDS ORDERED: Furosemide 100 MG/10 ML SDV IVPUSH ONE (23:26)
[2021-09-18] MEDS ORDERED: Metolazone 5 MG Tab PO ONE (01:30)
[2021-09-18] MEDS ORDERED: Levofloxacin 750 MG Tab PO ONE (01:40)
[2021-09-18] MEDS ORDERED: Furosemide 100 MG/10 ML SDV IVPUSH ONE (02:00)
[2021-09-18] MEDS: LORazepam 1 MG Tab PO PRN ×2 (02:08→10:08)
[2021-09-18 02:09] LABS: CARBON DIOXIDE,CO2 21.5 mmol/L (21.0-32.0); POTASSIUM,K 4.4 mmol/L (3.5-5.1)
[2021-09-18] MEDS ORDERED: Heparin Sodium 5,000 Units/ML Vial IVPUSH ONE ×2 (02:35→14:20)
[2021-09-18] MEDS: VILANTEROL INH SCH (08:44)
[2021-09-18] MEDS: FLUTICASONE INH SCH (08:44)
[2021-09-18] MEDS: Diltiazem 180 MG Cap.CD PO SCH (08:45)
[2021-09-18] MEDS: Pantoprazole 40 MG in Sodium Chloride 0.9% 10 ML IVPUSH SCH (08:45)
[2021-09-18] MEDS: Albuterol/Ipratropium 3.0-0.5 MG/3 ML Neb Soln NEB PRN (09:31)
[2021-09-18] MEDS: Metoprolol Tartrate 25 MG Tab PO SCH (11:16)
[2021-09-18] MEDS: Heparin Sodium/0.45% NaCl 500 ML IV SCH (15:18)
[2021-09-18] MEDS ORDERED: LORazepam 2 MG/ML SDV IVPUSH ONE (15:41)
[2021-09-20] MEDS ORDERED: Levofloxacin/Dextrose 5%-Water 100 ML IV SCH (02:00)
== END 2021-09-18 16:10 | DRG 194 ==
LOC: MW.ED 22:00 → MW.ICU 09-16 01:00
PROVIDERS: ADMIT Student in an Organized Health Care Education/Training Program; ATTEND Student in an Organized Health Care Education/Training Program
DX: I13.0 Hypertensive heart and chronic kidney disease with heart failure and stage 1 through stage 4 chronic kidney disease, or unspecified chronic kidney disease (principal); J96.01 Acute respiratory failure with hypoxia; I50.9 Heart failure, unspecified; I48.91 Unspecified atrial fibrillation; N17.9 Acute kidney failure, unspecified; N18.9 Chronic kidney disease, unspecified; E66.01 Morbid (severe) obesity due to excess calories; Z20.822 Contact with and (suspected) exposure to COVID-19; H54.7 Unspecified visual loss; Z79.899 Other long term (current) drug therapy; Z87.440 Personal history of urinary (tract) infections; Z86.16 Personal history of COVID-19; Z68.44 Body mass index [BMI] 60.0-69.9, adult
CPT/HCPCS: 0240U; 36415; 51702; 71045; 71045-26; 80053; 82947; 83605; 83735; 83880; 84100; 84484; 85025; 85610; 85730; 87040; 90686; 93005; 93306; 94640; 96365; 96367; 96376; 99285-25; A9270-GY; C9113; G0008; J0282; J1644; J1940; J2060; J2250; J2405; J3475; J3490; J7120; J7620-GY

== ENCOUNTER 2021-10-25 13:49 | Emergency (ER) | payer BC ==
[2021-10-25] MEDS ORDERED: Sodium Chloride 0.9% 2.5 ML Syringe FLUSH PRN (14:12)
[2021-10-25] MEDS ORDERED: Sodium Chloride 0.9% 10 ML Syringe FLUSH PRN (14:12)
[2021-10-25] MEDS ORDERED: Diltiazem 100 MG in Sodium Chloride 0.9% 100 ML IV SCH (14:15)
[2021-10-25] MEDS: Diltiazem 25 MG/5 ML SDV IVPUSH ONE ×2 (14:21→14:28)
[2021-10-25 14:46] LABS: BLOOD UREA NITROGEN,BUN 28 mg/dL (7.0-18.0); CARBON DIOXIDE,CO2 22.1 mmol/L (21.0-32.0); CHLORIDE,CL 96 mmol/L (98-107); GLUCOSE RANDOM 133 mg/dL (74-106); POTASSIUM,K 3.6 mmol/L (3.5-5.1); SODIUM,NA 134 mmol/L (136-145)
[2021-10-25] MEDS ORDERED: Diltiazem 25 MG/5 ML SDV IVPUSH ONE (15:15)
[2021-10-25 15:31] LABS: CORONAVIRUS COVID-19 NAA NEGATIVE (NEGATIVE); INFLUENZA A NAA POSITIVE (NEGATIVE); INFLUENZA B NAA NEGATIVE (NEGATIVE)
[2021-10-25] MEDS ORDERED: Oseltamivir Phosphate 30 MG Capsule PO STA (16:33)
[2021-10-25] MEDS ORDERED: Magnesium Sulfate/Water 2 GM in Premix Bag 1 BAG IV ONE (16:41)
[2021-10-25] MEDS ORDERED: Amiodarone 150 MG in Dextrose 5% in Water 100 ML IV ONE ×2 (16:41)
[2021-10-25] MEDS ORDERED: Amiodarone In Dextrose,Iso-Osm 150 MG in Premix Bag 1 BAG IV ONE ×2 (17:06)
[2021-10-25] MEDS ORDERED: Hyaluronidase, Human Recomb. 150 Unit/ML Vial ONE (18:50)
[2021-10-25] MEDS ORDERED: LORazepam 1 MG Tab PO ONE (18:59)
== END 2021-10-25 19:29 ==
LOC: MW.ED 13:49 → EDBD 13:49 → MERGE 13:49 → MW.ED 19:30
DX: J10.1 Influenza due to other identified influenza virus with other respiratory manifestations (principal); I48.91 Unspecified atrial fibrillation; I12.9 Hypertensive chronic kidney disease with stage 1 through stage 4 chronic kidney disease, or unspecified chronic kidney disease; N18.9 Chronic kidney disease, unspecified; E83.42 Hypomagnesemia; E66.01 Morbid (severe) obesity due to excess calories; J45.909 Unspecified asthma, uncomplicated; Z79.01 Long term (current) use of anticoagulants; Z20.822 Contact with and (suspected) exposure to COVID-19; Z68.30 Body mass index [BMI] 30.0-30.9, adult
CPT/HCPCS: 0240U; 36415; 71045; 80053; 83735; 83880; 84439; 84443; 84484; 85025; 85379; 85610; 93005; 96365; 96366; 96367; 96368; 99285; A9270; J0282; J3473; J3475; J3490

== ENCOUNTER 2022-05-30 10:40 | Emergency (ER) | payer BC | END 2022-05-30 14:11 | disposition home or self-care (01) | LOC: MW.ED 10:40 | DX: R06.02 Shortness of breath (principal); Z20.822 Contact with and (suspected) exposure to COVID-19 | CPT/HCPCS: 71045; 71045-26; 99285 ==

== ENCOUNTER 2022-08-18 10:19 | Emergency (ER) | payer BC ==
[2022-08-18] MEDS ORDERED: Ondansetron 4 MG Tab.DIS PO ONE ×2 (10:40→12:13)
[2022-08-18 11:16] LABS: CARBON DIOXIDE,CO2 26.9 mmol/L (21.0-32.0); POTASSIUM,K 4.3 mmol/L (3.5-5.1)
[2022-08-18 11:26] LABS: CORONAVIRUS COVID-19 NAA NEGATIVE (NEGATIVE); INFLUENZA A NAA NEGATIVE (NEGATIVE); INFLUENZA B NAA NEGATIVE (NEGATIVE); RESPIRATORY SYNCYTIAL VIR NAA NEGATIVE (NEGATIVE)
== END 2022-08-18 12:37 | disposition home or self-care (01) ==
LOC: MW.ED 10:19
DX: J06.9 Acute upper respiratory infection, unspecified (principal); I12.9 Hypertensive chronic kidney disease with stage 1 through stage 4 chronic kidney disease, or unspecified chronic kidney disease; N18.9 Chronic kidney disease, unspecified; D63.1 Anemia in chronic kidney disease; I48.91 Unspecified atrial fibrillation; Z79.01 Long term (current) use of anticoagulants; Z20.822 Contact with and (suspected) exposure to COVID-19
CPT/HCPCS: 0241U; 36415; 71045; 80053; 83880; 85025; 87651; 93005; 99284; A9270

== ENCOUNTER 2023-04-16 16:35 | Emergency (ER) | payer BC ==
[2023-04-16] MEDS ORDERED: Acetaminophen/HYDROcodone 325-5 MG Tab PO ONE (16:45)
== END 2023-04-16 20:30 | disposition home or self-care (01) ==
LOC: MW.ED 16:35
DX: S52.501A Unspecified fracture of the lower end of right radius, initial encounter for closed fracture (principal); I48.91 Unspecified atrial fibrillation; I10 Essential (primary) hypertension; Z86.16 Personal history of COVID-19; Z79.01 Long term (current) use of anticoagulants; Z79.899 Other long term (current) drug therapy; W18.30XA Fall on same level, unspecified, initial encounter
CPT/HCPCS: 29125; 73070; 73090; 73100; 99283; A9270

== ENCOUNTER 2024-11-25 08:07 | Emergency (ER) | payer MEDICARE ==
[2024-11-25 09:48] LABS: BASOPHILS ABSOLUTE AUTO 0.04 K/uL (0.00-0.20); BASOPHILS PERCENT AUTO 0.6 % (0.0-1.0); EOSINOPHILS ABSOLUTE AUTO 0.14 K/uL (0.00-0.45); HEMATOCRIT 26.9 % (37.0-47.0); IMMATURE GRAN ABSOLUTE AUTO 0.18 K/uL (0.00-0.05); IMMATURE GRAN PERCENT AUTO 2.6 % (0.0-0.4); LYMPHOCYTES ABSOLUTE AUTO 1.32 K/uL (1.00-4.80); LYMPHOCYTES PERCENT AUTO 18.8 % (24.0-44.0); MEAN CORPUSCULAR HEMOGLOBIN 33.2 pg (28.0-32.0); MEAN CORPUSCULAR HGB CONC 33.5 g/dL (32.0-36.0); MEAN CORPUSCULAR VOLUME 99.3 fL (83.0-99.0); MEAN PLATELET VOLUME 9.8 fL (9.4-12.3); MONOCYTES ABSOLUTE AUTO 0.71 K/uL (0.00-0.80); MONOCYTES PERCENT AUTO 10.1 % (0.0-8.0); NEUTROPHILS ABSOLUTE AUTO 4.63 K/uL (1.80-7.70); NEUTROPHILS PERCENT AUTO 65.9 % (41.0-71.0); PLATELET COUNT,PLT 217 K/uL (150-400); RED BLOOD CELL COUNT 2.71 M/uL (4.10-5.30); WHITE BLOOD CELL COUNT,WBC 7.02 K/uL (3.9-11.3)
[2024-11-25 10:04] LABS: ALBUMIN 3.6 g/dL (3.4-5.0); BILIRUBIN TOTAL 0.5 mg/dL (0.2-1.0); CALCIUM 9.9 mg/dL (8.5-10.1); CARBON DIOXIDE,CO2 29.4 mmol/L (21.0-32.0); CREATININE 10.7 mg/dL (0.6-1.0); EST CRCL DRUG DOSING (CG) 5.57 mL/min; POTASSIUM,K 4.9 mmol/L (3.5-5.1); PROTEIN TOTAL,TP 7.1 g/dL (6.4-8.2)
== END 2024-11-25 13:15 ==
LOC: MW.ED 08:07
DX: T82.590A Other mechanical complication of surgically created arteriovenous fistula, initial encounter (principal); R79.89 Other specified abnormal findings of blood chemistry; J45.909 Unspecified asthma, uncomplicated; I10 Essential (primary) hypertension; Z79.899 Other long term (current) drug therapy; Z86.16 Personal history of COVID-19
CPT/HCPCS: 36415; 71045; 71045-26; 80053; 83880; 84484; 85025; 93005; 93010; 99285

== ENCOUNTER 2025-08-07 05:09 | Emergency (ER) | payer MEDICARE, MEDICAID | END 2025-08-07 05:19 | disposition left against medical advice (07) | LOC: MW.ED 05:09 | DX: Z53.21 Procedure and treatment not carried out due to patient leaving prior to being seen by health care provider (principal) ==